=== PATIENT | male | born 1960 | race Caucasian/White ===

== ENCOUNTER 2020-08-04 15:47 | Outpatient (REF) | payer OTHER, SELFPAY ==
--- NOTE | ~2020-08-04 | XR_ITS ---
EXAMINATION: XR CERVICAL SPINE CLINICAL INFORMATION: Radiculopathy. COMPARISON: MR cervical spine 04/05/2017. Plain film cervical spine 10/10/2010 TECHNIQUE: 5 views of cervical spine FINDINGS: Orthopedic plate and screw and fusion of the vertebrae at C6-C7. Large anterior bridging osteophyte at C5-C6. Small spurs at the anterior inferior endplates of C2, C3 and C4. Mild multilevel facet joint arthrosis which is most significant on the right side at C2-C3 and on the left at C3-C4. There is slight encroachment into the left and right neural foramina at C3-C4 by a posterior osteophyte from the facet joint. Remainder of neural foramina are open bilaterally. XR/XR cervical spine 5V IMPRESSION: 1. Mild encroachment into the left and right neural foramina at C3-C4 with posterior osteophyte from facet joint. Remainder of the neural foramina are open bilateral. 2. Degenerative spondylosis of cervical spine. 3. Status post fusion C6-C7 with anterior plate and screws.
== END 2020-08-04 15:48 | disposition home or self-care (01) ==
LOC: HO.HMGCX 15:47
PROVIDERS: PCP Internal Medicine; Visit Provider Nurse Practitioner Family
DX: M54.12 Radiculopathy, cervical region (principal)
CPT/HCPCS: 72050

== ENCOUNTER 2021-06-04 17:05 | Inpatient (IN) | payer OTHER, SELFPAY ==
[2021-06-04 17:18] VITALS: BP 124/53; BP 140/90; PULSE 110; PULSE 60; RESP 16; TEMP 36.4; O2SAT 100; O2SAT 99; BMI 31.9
[2021-06-04 17:31] LABS: Glucose, Whole Blood 107 mg/dL (60-115)
[2021-06-04 18:00] VITALS: BP 118/61; PULSE 58; RESP 16; TEMP 36.3; O2SAT 98
--- NOTE | 2021-06-04 18:28 | ED.AMS ---
HPI - Altered Mental Status General Chief Complaint: ETOH/Substance Use Stated Complaint: hypoglycemia ?etoh Time Seen by Provider: 06/04/21 17:32 Source: patient and EMS Mode of arrival: EMS Limitations: no limitations History of Present Illness HPI narrative: 61-year-old male who is brought to emergency department for evaluation of altered mental status. The patient states that he is a diabetic and he took his medications yesterday and today as prescribed. He states that he had no food to eat all day. Apparently his girlfriend found him altered and called an ambulance. When the paramedics arrived his point of care glucose registered as low. He was given 25 g of D50 IV and the patient became responsive. Patient's repeat point of care glucose was 145. The patient states that he has a memory of his girlfriend checking in on him but does not remember what happened prior to coming to the emergency department. He cannot tell me why she did not eat any food today. He denies using any alcohol or drugs today. He states that he last drank alcohol on Sunday ( 1 day prior to evaluation). MD complaint: altered mental status Onset (ago): hour(s) (1) Timing confirmed by: other ( Girlfriend) Severity: severe Consistency of symptoms: constant Context: other ( diabetic did not eat food today but took his medication) Associated symptoms: denies other symptoms Treatments prior to arrival: glucose Related Data Home Medications Medication Instructions Recorded Confirmed atorvastatin 20 mg tablet 20 mg PO DAILY 08/04/20 glyburide 5 mg tablet 10 mg PO BID 08/04/20 insulin glargine 100 unit/mL (3 unit SUBCUT 08/04/20 mL) subcutaneous pen insulin lispro protamine-lispro ml SUBCUT 08/04/20 100 unit/mL (75-25) subcutaneous pen lisinopril 5 mg tablet 5 mg PO DAILY 08/04/20 metformin 850 mg tablet 850 mg PO TID 08/04/20 omeprazole 20 mg capsule,delayed 20 mg PO DAILY 08/04/20 release Allergies Allergy/AdvReac Type Severity Reaction Status Date / Time No Known Allergies Allergy Mild NKA Unverified 07/30/20 16:08 Review of Systems Review of Systems: Yes all other systems are reviewed and are negative PMFSH Past Medical History [facility] Narrative: Past medical history: Diabetes mellitus. Social history: The patient lives with his girlfriend. He denies tobacco use. He states that he does drink alcohol but has not had any alcohol to drink today. His last drink was 1 day prior. He denies drug use. Social History Social History Advance Directives: No Advance Directives Information Provided: No Physical Exam ED Vital Signs: Vital Signs - 24 hr 06/04/21 17:18 06/04/21 18:00 06/04/21 20:37 Temperature 97.6 F 97.4 F Pulse Rate 60 58 77 Respiratory Rate 16 16 18 Blood Pressure 124/53 L 118/61 145/64 H Pulse Oximetry 99 98 98 BMI result Body Mass Index 31.9 Const General: cooperative and no acute distress Orientation/consciousness: oriented to person and oriented to place Limitations: no limitations HENMT Head: Yes normal to inspection, Yes normocephalic and Yes atraumatic Ears: external ears normal General nose exam: Normal external nose present Face and sinus: Yes normal facial exam Mouth: Normal oral and palatal mucosa present Throat: Yes posterior oropharynx normal Eyes General: appearance normal, both eyes and all related structures Pupils: Equal, round and reactive pupils present Neck Neck: Yes normal visual inspection, Yes no lymphadenopathy, Yes trachea midline and Yes supple Chest Chest palpation & inspection: normal inspection of the chest and normal palpation of entire chest wall Resp Effort & Inspection: normal respiratory effort and able to speak in complete sentences Auscultation: clear to auscultation bilaterally Cardio Rate: regular rate Rhythm: regular rhythm Heart sounds: S1 normal heart sound present, S2 normal heart sound present and no murmurs GI Inspection: Yes normal to inspection Palpation (GI): Soft to palpation, nontender and no guarding Auscultation: normal bowel sounds General: Yes no CVA tenderness Back/Spine/Pelvis Back: no CVA tenderness Skin General skin exam: no rashes or lesions noted Neuro General: oriented to person and oriented to place Cranial nerves: Yes CN's II-XII intact bilaterally and Yes Equal, round and reactive pupils present Cognition (Neuro): normal cognition Motor exam (neuro): 5/5 motor strength present throughout Extrem General: Yes normal to inspection Psych Appearance: grossly normal Speech and movement: Normal speech and movement present Affect: normal affect Attitude: cooperative Thought process: Normal thought process present Thought content: Normal thought content present Course Course Course Narrative: 61-year-old male who was found altered by his girlfriend, paramedics found his point of care glucose to be low and he was given 25 g of D50 IV with good response. At the time of evaluation the patient is awake and alert, has no complaints and does not appear to be in distress. The patient told me that he did take his diabetic medications appropriately yesterday and this morning but he did not have any food to eat all day. He cannot tell me why he did not eat. He denies using drugs or alcohol today. Patient's examination was unremarkable. I did order laboratory evaluate and food for the patient. We will follow his point of care glucose while he is here in the emergency Department. The patient was food to eat here in the emergency department. 2050: Laboratory evaluation : Can WBC was normal. Potassium high 5.2, bicarb low 17, anion gap elevated 22. Point of care glucose was 54, repeat was 42 and the patient's 3rd point of care glucose after eating was also low. The patient does take metformin and glimepiride twice a day as well as 2 forms of insulin at night. He believes that he has been compliant with his medications. At this point, the patient has persistent hypoglycemic despite eating food therefore I will start him on D5 NS and discuss admission with the covering hospitalist. MDM - Altered Mental Status Lab Data Result diagrams: 06/04/21 18:40 06/04/21 18:40 Labs: Lab Results 06/04/21 06/04/21 06/04/21 Range/Units 17:27 18:40 18:40 WBC 8.2 (4.8-10.8) X10*3/uL RBC 5.04 (4.60-5.80) X10*6/uL Hgb 13.7 L (14.0-18.0) g/dl Hct 42.0 (42.0-52.0) % MCV 83.3 (80.0-98.0) fL MCH 27.2 (27.0-33.0) pg MCHC 32.6 (31.0-36.0) g/dl RDW 13.7 (11.0-16.0) % Plt Count 245 (160-400) X10*3/uL MPV 10.3 (9.4-12.4) fL Immature Gran % (Auto) 0.7 H (0.0-0.4) % Neut % (Auto) 81.9 H (45-73) % Lymph % (Auto) 12.9 L (20-40) % [place] % (Auto) 4.3 (2-11) % Eos % (Auto) 0.1 (0-4) % Baso % (Auto) 0.1 (0-2) % Lymph # (Auto) 1.1 L (1.2-4.9) X10*3/uL [place] # (Auto) 0.4 (0.1-1.2) X10*3/uL Eos # (Auto) 0.0 (0.0-0.4) X10*3/uL Baso # (Auto) 0.0 (0.0-0.2) X10*3/uL Abs Immat Gran (auto) 0.06 H (0.00-0.03) X10*3/uL Absolute Neuts (auto) 6.7 (2.0-8.3) x10*3/uL Absolute Nucleated RBC 0.000 (0.0-0.012) X10*3/uL Nucleated RBC % (auto) 0.0 (0.0-0.2) /100WBC Sodium 141 (135-145) mmol/L Potassium 5.2 H (3.3-5.1) mmol/L Chloride 107 (96-108) mmol/L Carbon Dioxide 17 L (22-29) mmol/L Anion Gap 22 H (12-20) BUN 9 (9-16) mg/dL Creatinine 1.09 (0.5-1.4) mg/dL Estim Creat Clear Calc 81.6 Estimated GFR > 60 POC Glucose 107 (60-115) mg/dL Random Glucose 54 L* (60-115) mg/dL Calcium 9.3 (8.4-10.2) mg/dL Total Bilirubin 0.6 (0.0-1.0) mg/dL AST 37 (5-37) U/L ALT 36 (0-40) U/L Alkaline Phosphatase 61 (39-117) U/L Total Protein 7.5 (6.5-8.0) g/dL Albumin 4.6 (3.5-5.0) g/dL Ethyl Alcohol mg/dL 06/04/21 06/04/21 Range/Units 18:40 19:14 WBC (4.8-10.8) X10*3/uL RBC (4.60-5.80) X10*6/uL Hgb (14.0-18.0) g/dl Hct (42.0-52.0) % MCV (80.0-98.0) fL MCH (27.0-33.0) pg MCHC (31.0-36.0) g/dl RDW (11.0-16.0) % Plt Count (160-400) X10*3/uL MPV (9.4-12.4) fL Immature Gran % (Auto) (0.0-0.4) % Neut % (Auto) (45-73) % Lymph % (Auto) (20-40) % [place] % (Auto) (2-11) % Eos % (Auto) (0-4) % Baso % (Auto) (0-2) % Lymph # (Auto) (1.2-4.9) X10*3/uL [place] # (Auto) (0.1-1.2) X10*3/uL Eos # (Auto) (0.0-0.4) X10*3/uL Baso # (Auto) (0.0-0.2) X10*3/uL Abs Immat Gran (auto) (0.00-0.03) X10*3/uL Absolute Neuts (auto) (2.0-8.3) x10*3/uL Absolute Nucleated RBC (0.0-0.012) X10*3/uL Nucleated RBC % (auto) (0.0-0.2) /100WBC Sodium (135-145) mmol/L Potassium (3.3-5.1) mmol/L Chloride (96-108) mmol/L Carbon Dioxide (22-29) mmol/L Anion Gap (12-20) BUN (9-16) mg/dL Creatinine (0.5-1.4) mg/dL Estim Creat Clear Calc Estimated GFR POC Glucose 42 L* (60-115) mg/dL Random Glucose (60-115) mg/dL Calcium (8.4-10.2) mg/dL Total Bilirubin (0.0-1.0) mg/dL AST (5-37) U/L ALT (0-40) U/L Alkaline Phosphatase (39-117) U/L Total Protein (6.5-8.0) g/dL Albumin (3.5-5.0) g/dL Ethyl Alcohol < 10 mg/dL Discharge Plan Discharge Patient Disposition: Admitted As Inpatient Prescriptions: No Action dexamethasone 4 mg tablet 4 mg PO .COMPLEX Qty: 18 0RF Rx Instructions: 4 mg PO; 1 p.o. t.i.d. x3 days, 1 p.o. b.i.d. x3 days, 1 p.o. daily x3 days Lantus Solostar U-100 Insulin 100 unit/mL (3 mL) insulin pen subcut 0RF (DME) FreeStyle Lite Strips Strip See Rx Instructions strip Not Applicable TID Qty: 10 0RF Rx Instructions: As directed insulin lispro protamin-lispro 100 unit/mL (75-25) insulin pen subcut 0RF lisinopril 5 mg tablet 5 mg PO DAILY 0RF omeprazole 20 mg capsule,delayed release(DR/EC) 20 mg PO DAILY 0RF metformin 850 mg tablet 850 mg PO TID 0RF glyburide 5 mg tablet 10 mg PO BID 0RF atorvastatin 20 mg tablet 20 mg PO DAILY 0RF (DME) lancets 28 gauge misc See Rx Instructions ea topical TID Qty: 100 0RF Rx Instructions: As directed cyclobenzaprine 5 mg tablet 5 - 10 mg PO TID PRN (Reason: muscle spasm) Qty: 20 0RF
[2021-06-04 18:46] LABS: MANUAL DIFF FLAG NO
[2021-06-04 18:48] LABS: Basophils Percent Auto 0.1 % (0-2); Eosinophils Percent Auto 0.1 % (0-4); Hemoglobin 13.7 g/dl (14.0-18.0); Imm Gran Abs Auto 0.06 X10*3/uL (0.00-0.03); Imm Gran Pct Auto 0.7 % (0.0-0.4); Lymphocytes Absolute Auto 1.1 X10*3/uL (1.2-4.9); Lymphocytes Percent Auto 12.9 % (20-40); Mean Corpuscular HGB Conc 32.6 g/dl (31.0-36.0); Mean Corpuscular Hemoglobin 27.2 pg (27.0-33.0); Mean Corpuscular Volume 83.3 fL (80.0-98.0); Mean Platelet Volume 10.3 fL (9.4-12.4); Monocytes Absolute Auto 0.4 X10*3/uL (0.1-1.2); Monocytes Percent Auto 4.3 % (2-11); Neutrophils Absolute Auto 6.7 x10*3/uL (2.0-8.3); Neutrophils Percent Auto 81.9 % (45-73); Platelet Count 245 X10*3/uL (160-400); Red Blood Count 5.04 X10*6/uL (4.60-5.80); Red Cell Distribution Width 13.7 % (11.0-16.0); White Blood Count 8.2 X10*3/uL (4.8-10.8)
[2021-06-04 19:02] LABS: Ethanol < 10 mg/dL
[2021-06-04 19:10] LABS: Alanine Aminotransferase 36 U/L (0-40); Albumin Level 4.6 g/dL (3.5-5.0); Alkaline Phosphatase 61 U/L (39-117); Anion Gap 22 (12-20); Aspartate Amino Transferase 37 U/L (5-37); Bilirubin Total 0.6 mg/dL (0.0-1.0); Blood Urea Nitrogen 9 mg/dL (9-16); Calcium 9.3 mg/dL (8.4-10.2); Carbon Dioxide 17 mmol/L (22-29); Chloride 107 mmol/L (96-108); Creatinine Clr Calc Pharmacy 81.6; Estimated Glomerular Filt Rate > 60; Glucose Random 54 mg/dL (60-115); Potassium 5.2 mmol/L (3.3-5.1); Sodium 141 mmol/L (135-145); Total Protein 7.5 g/dL (6.5-8.0)
[2021-06-04 19:18] LABS: Glucose, Whole Blood 42 mg/dL (60-115)
[2021-06-04 20:37] VITALS: BP 145/64; PULSE 77; RESP 18; O2SAT 98
[2021-06-04 20:55] LABS: Glucose, Whole Blood 43 mg/dL (60-115)
[2021-06-04 20:58] LABS: Appearance Urine CLEAR; Color Urine YELLOW; Glucose Urine UA NEG (NEG); Leukocyte Esterase Urine NEG (NEG); Nitrite Urine NEG (NEG); PH 5.5 (5.0-8.0); Specific Gravity - Urine >= 1.030 (1.005-1.025); Urine Blood NEG (NEG); Urine Ketones 15 MG/DL (NEG); Urine Protein TRACE MG/DL (NEG-TRACE)
--- NOTE | 2021-06-04 21:08 | ECG_ITS ---
Test Reason : AMS Blood Pressure : / mmHG Vent. Rate : 094 BPM Atrial Rate : 094 BPM P-R Int : 132 ms QRS Dur : 084 ms QT Int : 354 ms P-R-T Axes : 047 042 058 degrees QTc Int : 442 ms Normal sinus rhythm Normal ECG When compared with ECG of 27-OCT-2008 16:34, No significant change was found Referred By: Dawson Funk Electronically Signed By:Onel Carrasco
--- NOTE | 2021-06-04 21:10 | P.HPHOSP_ITS ---
History of Present Illness Date of Service: 06/04/21 Chief Complaint: Hypoglycemia/unresponsive episode 61-year-old male with a past medical history of hypertension, hyperlipidemia, diabetes, GERD presented to the hospital with a chief complaint of unresponsive episode. Patient reported that yesterday he had couple drinks of alcohol; and does not remember if he ate anything. But to keep his home and dose of insulin Lantus 70 units and lispro 35 units at bedtime; in the morning when the patient's girlfriend tried to wake him up patient was not responding; EMS was called in and who noted that his fingerstick glucose was not recordable/low. Patient was given glucose. Patient has slowly started to wake up. Subsequently brought him to the ER for further evaluation. Patient mentioned that he had a history of DKA; and has been on insulin lispro 35 units at bedtime and Lantus 70 units at bedtime; has been complaint with his home medications including low-grade and metformin. Currently denies any chest pain palpitations lightheadedness or dizziness. Alert and oriented x3. Denies any fever chills cough. Denies any nausea vomiting or diarrhea. Review of all other systems is negative except mentioned above ER course: Per ER patient's fingerstick glucose was 130 on presentation followed by dropped to 43-40 2-54; patient was given IV dextrose followed by started on D5; and admitted for observation. [facility] Pertinent family history: Reviewed Social History Household Members: Significant Other Housing: House Do you presently have visiting nurse or other home services: No Alcohol intake: unknown Patient Tobacco Use Status: Never used Tobacco service: No Current occupational status: retired [employer] Allergies Allergy/AdvReac Type Severity Reaction Status Date / Time No Known Allergies Allergy Mild NKA Verified 06/13/21 19:33 Active Medications: Current Medications Acetaminophen (Acetaminophen 325 Mg Tablet) 650 mg PO Q6H PRN PRN Reason: Pain, Mild (Pain Scale 1-3) Dextrose (Dextrose 50 % 25 Gm/50 Ml Syringe) 25 gm IVPUSH Q15M PRN; Protocol PRN Reason: per Hypoglycemia Standing Ord. Glucose (Glucose Gel 15 Gm Gel..Gram.) 15 gm PO Q15M PRN; Protocol PRN Reason: per Hypoglycemia Standing Ord. Heparin Sodium (Porcine) (Heparin Sodium,Porcine 5,000 Unit/Ml Vial) 5,000 unit SUBCUT Q8H ROSIBEL Dextrose/Sodium Chloride (D5ns) 1,000 mls @ 125 mls/hr IVCONT .Q8H ROSIBEL Dextrose/Sodium Chloride (D51/2ns) 1,000 mls @ 80 mls/hr IVCONT .[id number] [facility] Melatonin (Melatonin 3 Mg Tablet) 6 mg PO BEDTIME PRN PRN Reason: Insomnia Pharmacy Consult (Consult Rx Perform Med Rec) 1 each MISCELLANE ONCE PRN PRN Reason: Consult order Senna (Sennosides 8.6 Mg Tablet) 17.2 mg PO BEDTIME PRN PRN Reason: Constipation Sodium Chloride (0.9 % Sodium Chloride Flush 3 Ml Syringe) 3 ml IVFLUSH QSHIFT [facility] Home Medications Medication Instructions Recorded Confirmed Last Taken Type atorvastatin 20 mg tablet 20 mg PO BEDTIME 08/04/20 06/14/21 06/03/21 History lisinopril 5 mg tablet 5 mg PO DAILY 08/04/20 06/14/21 06/03/21 History metformin 850 mg tablet 850 mg PO TID 08/04/20 06/14/21 06/03/21 History omeprazole 20 mg capsule,delayed 20 mg PO DAILY 08/04/20 06/14/21 06/03/21 History release Physical Exam Vital Signs and Narrative: Vital Signs: Last Vital Signs Temp 97.4 F 06/04/21 18:00 Pulse 77 06/04/21 20:37 Resp 18 06/04/21 20:37 BP 145/64 H 06/04/21 20:37 Pulse Ox 98 06/04/21 20:37 BMI result Body Mass Index 31.9 Gen: Appears be in no acute distress HEENT: NCAT, Moist mucosa. Pulmonary: Vesicular breath sounds, fair air entry CVS: Normal S1-S2 Abdomen: BS+, Soft, Nontender Extremities: Warm well perfused Neuro: Alert and awake. Nonfocal. Oriented x3. Results Labs CBC and Chem 7: 06/05/21 06:01 06/05/21 06:01 Labs: Laboratory Results - last 24 hr 06/04/21 06/04/21 06/04/21 17:27 18:40 18:40 MCV 83.3 MCH 27.2 MCHC 32.6 RDW 13.7 Plt Count 245 MPV 10.3 Immature Gran % (Auto) 0.7 H Neut % (Auto) 81.9 H Lymph % (Auto) 12.9 L [place] % (Auto) 4.3 Eos % (Auto) 0.1 Baso % (Auto) 0.1 Lymph # (Auto) 1.1 L [place] # (Auto) 0.4 Eos # (Auto) 0.0 Baso # (Auto) 0.0 Abs Immat Gran (auto) 0.06 H Absolute Neuts (auto) 6.7 Absolute Nucleated RBC 0.000 Nucleated RBC % (auto) 0.0 Anion Gap 22 H Estim Creat Clear Calc 81.6 Estimated GFR > 60 POC Glucose 107 Random Glucose 54 L* Calcium 9.3 Total Bilirubin 0.6 AST 37 ALT 36 Alkaline Phosphatase 61 Total Protein 7.5 Albumin 4.6 Urine Color Urine Appearance Urine pH Ur Specific [place] Urine Protein Urine Glucose (UA) Urine Ketones Urine Blood Urine Nitrite Ur Leukocyte Esterase Ethyl Alcohol 06/04/21 06/04/21 06/04/21 18:40 19:14 20:27 MCV MCH MCHC RDW Plt Count MPV Immature Gran % (Auto) Neut % (Auto) Lymph % (Auto) [place] % (Auto) Eos % (Auto) Baso % (Auto) Lymph # (Auto) [place] # (Auto) Eos # (Auto) Baso # (Auto) Abs Immat Gran (auto) Absolute Neuts (auto) Absolute Nucleated RBC Nucleated RBC % (auto) Anion Gap Estim Creat Clear Calc Estimated GFR POC Glucose 42 L* 43 L* Random Glucose Calcium Total Bilirubin AST ALT Alkaline Phosphatase Total Protein Albumin Urine Color Urine Appearance Urine pH Ur Specific [place] Urine Protein Urine Glucose (UA) Urine Ketones Urine Blood Urine Nitrite Ur Leukocyte Esterase Ethyl Alcohol < 10 06/04/21 20:51 MCV MCH MCHC RDW Plt Count MPV Immature Gran % (Auto) Neut % (Auto) Lymph % (Auto) [place] % (Auto) Eos % (Auto) Baso % (Auto) Lymph # (Auto) [place] # (Auto) Eos # (Auto) Baso # (Auto) Abs Immat Gran (auto) Absolute Neuts (auto) Absolute Nucleated RBC Nucleated RBC % (auto) Anion Gap Estim Creat Clear Calc Estimated GFR POC Glucose Random Glucose Calcium Total Bilirubin AST ALT Alkaline Phosphatase Total Protein Albumin Urine Color YELLOW Urine Appearance CLEAR Urine pH 5.5 Ur Specific [place] >= 1.030 H Urine Protein TRACE Urine Glucose (UA) NEG Urine Ketones 15 Urine Blood NEG Urine Nitrite NEG Ur Leukocyte Esterase NEG Ethyl Alcohol Assessment and Plan (1) Unresponsive episode: Status: Acute Plan 61-year-old male with a past medical history of hypertension, hyperlipidemia, diabetes, GERD presented to the hospital with a chief complaint of unresponsive episode. Admitted for following Unresponsive episode: In the setting of hypoglycemia. Denies any seizure-like activity. Currently mental status improved. EKG nonischemic. Troponin negative. Hypoglycemia: Likely in the setting of poor oral intake and high dose of insulin regimen-> Lantus 70 units and lispro 35 units taken the night before. Will keep the patient on D5 half NS. Will obtain acute hypoglycemia protocol as well Monitor fingerstick glucose every 2 hours History of diabetes: Hold home insulin regimen including Lantus, lispro, glipizide, metformin. Monitor fingerstick glucose. Once hypoglycemia resolves; can be resumed on insulin sliding scale. Hypertension/hyperlipidemia: Continue home statin/lisinopril. DVT prophylaxis: Subcu heparin Code status: Full code Quality Stroke Does the patient have a stroke diagnosis?: No VTE Prior VTE?: No VTE Risk Level:: Medical - moderate - high VTE Device Contraindication: Treatment Not Indicated VTE Drug Contraindication: N/A - Med Ordered
[2021-06-04 21:11] LABS: Amphetamine Screen Urine Not Detected (Not Detect); Barbiturates, Urine Not Detected (Not Detect); Benzodiazepines Screen Urine Not Detected (Not Detect); Cannabinoid Screen Urine Not Detected (Not Detect); Cocaine Screen Urine POSITIVE (Not Detect); Fentanyl, urine POSITIVE (Not Detect); Opiate Screen Urine Not Detected (Not Detect); Phencyclidine Screen Urine Not Detected (Not Detect)
[2021-06-04] MEDS: Dextrose 5 % and 0.9 % NaCl 1,000 ML 125 ML IVCONT (21:17)
--- NOTE | 2021-06-04 21:20 | PHA.MEDREC ---
Pharmacy Consult ? Medication Reconciliation Pharmacy has completed the medication reconciliation Patient states they take humalog 75/25 once a day with lantus at the same time.
[2021-06-04 21:34] LABS: Troponin-I High Sensitivity < 3.5 ng/L (<3.5-35.0)
[2021-06-04 22:04] VITALS: BP 128/53; PULSE 91; RESP 18; O2SAT 96
[2021-06-04 22:11] LABS: Influenza A Negative (Negative); Influenza B2 Negative (Negative)
[2021-06-04 22:12] LABS: COVID-19 Test Negative (Negative); IDNOW Serial# 16C4AD1C
[2021-06-04 22:24] LABS: Glucose, Whole Blood 130 mg/dL (60-115)
[2021-06-05 00:02] VITALS: BP 119/59; PULSE 94; RESP 19; TEMP 37.8; O2SAT 96
[2021-06-05 00:50] LABS: Glucose, Whole Blood 127 mg/dL (60-115)
[2021-06-05 04:03] VITALS: BP 112/61; PULSE 76; RESP 17; O2SAT 96
[2021-06-05] MEDS: Dextrose 5 % and 0.9 % NaCl 1,000 ML 125 ML IVCONT (05:17)
[2021-06-05 05:39] LABS: Glucose, Whole Blood 83 mg/dL (60-115)
[2021-06-05] MEDS: Dextrose 50 % 25 GM/50 ML SYRINGE IVPUSH (05:59)
[2021-06-05 06:05] LABS: Basophils Percent Auto 0.3 % (0-2); Eosinophils Absolute Auto 0.1 X10*3/uL (0.0-0.4); Eosinophils Percent Auto 1.9 % (0-4); Hematocrit 34.9 % (42.0-52.0); Hemoglobin 11.7 g/dl (14.0-18.0); Imm Gran Abs Auto 0.03 X10*3/uL (0.00-0.03); Imm Gran Pct Auto 0.4 % (0.0-0.4); Lymphocytes Percent Auto 27.3 % (20-40); MANUAL DIFF FLAG NO; Mean Corpuscular HGB Conc 33.5 g/dl (31.0-36.0); Mean Corpuscular Hemoglobin 27.4 pg (27.0-33.0); Mean Corpuscular Volume 81.7 fL (80.0-98.0); Mean Platelet Volume 10.2 fL (9.4-12.4); Monocytes Absolute Auto 0.8 X10*3/uL (0.1-1.2); Monocytes Percent Auto 10.4 % (2-11); Neutrophils Absolute Auto 4.4 x10*3/uL (2.0-8.3); Neutrophils Percent Auto 59.7 % (45-73); Platelet Count 219 X10*3/uL (160-400); Red Blood Count 4.27 X10*6/uL (4.60-5.80); Red Cell Distribution Width 13.7 % (11.0-16.0); White Blood Count 7.3 X10*3/uL (4.8-10.8)
[2021-06-05 06:21] LABS: Anion Gap 14 (12-20); Blood Urea Nitrogen 11 mg/dL (9-16); Calcium 8.3 mg/dL (8.4-10.2); Carbon Dioxide 21 mmol/L (22-29); Chloride 105 mmol/L (96-108); Creatinine Clr Calc Pharmacy 75.4; Estimated Glomerular Filt Rate > 60; Glucose Random 205 mg/dL (60-115); Potassium 3.8 mmol/L (3.3-5.1); Sodium 136 mmol/L (135-145)
--- NOTE | 2021-06-05 06:22 | PC.NURSE ---
Patient's blood sugar labile throughout the shift and kept dropping. The lowest blood sugar was 42. Patient was placed on D5 and 0.9 NS drip at 125 ml/hr. Patient's blood sugar was then above 100. Morning blood sugar was 83 which was a drop from 153 and dropping. Dextrose 25 gm ordered ivp.
[2021-06-05 06:36] LABS: Glucose, Whole Blood 150 mg/dL (60-115)
[2021-06-05 07:26] VITALS: BP 124/70; PULSE 82; RESP 17; TEMP 37.3; O2SAT 97
[2021-06-05] MEDS: Heparin Sodium,Porcine 5,000 UNIT/ML VIAL 5000 UNIT SUBCUT (07:28)
[2021-06-05 07:29] VITALS: BMI 32.0
[2021-06-05 07:51] LABS: Glucose, Whole Blood 127 mg/dL (60-115)
[2021-06-05] MEDS: Omeprazole 20 MG CAPSULE.DR PO (07:55)
[2021-06-05 08:00] VITALS: BP 120/65; PULSE 65; RESP 17; TEMP 36.6; O2SAT 95
[2021-06-05 11:14] LABS: Glucose, Whole Blood 224 mg/dL (60-115)
[2021-06-05 12:00] VITALS: BP 128/65; PULSE 70; RESP 18; TEMP 37.4; O2SAT 96
--- NOTE | 2021-06-05 12:10 | PM.DS ---
DS: Providers Provider Date of Service: 06/05/21 Date of admission: 06/04/21 21:05 Primary care physician: Stephanie nSell MD DS: Summary Hospital Course Hospital Course: from initial hpi: hief Complaint: Hypoglycemia/unresponsive episode 61-year-old male with a past medical history of hypertension, hyperlipidemia, diabetes, GERD presented to the hospital with a chief complaint of unresponsive episode.? Patient reported that yesterday he had couple drinks of alcohol; and does not remember if he ate anything.? But to keep his home and dose of insulin Lantus 70 units and lispro 35 units at bedtime; in the morning when the patient's girlfriend tried to wake him up patient was not responding; EMS was called in and who noted that his fingerstick glucose was not recordable/low.? Patient was given glucose.? Patient has slowly started to wake up.? Subsequently brought him to the ER for further evaluation.? Patient mentioned that he had a history of DKA; and has been on insulin lispro 35 units at bedtime and Lantus 70 units at bedtime; has been complaint with his home medications including low-grade and metformin.? Currently denies any chest pain palpitations lightheadedness or dizziness.? Alert and oriented x3.? Denies any fever chills cough.? Denies any nausea vomiting or diarrhea.? Review of all other systems is negative except mentioned above ER course: Per ER patient's fingerstick glucose was 130 on presentation followed by dropped to 43-40 2-54; patient was given IV dextrose followed by started on D5; and admitted for observation. hospital course: Patient was admitted for metabolic encephalopathy due to diabetes with hypoglycemia, likely due to continuing his regular insulin dose while having poor intake after binge drinking. Patient's glucose improved after IV infusion and has maintained off of the IV infusion. At discharge his insulin will be decreased slightly, is encouraged to monitor his fingersticks and to make sure that he eats well taking his insulin. Time Spent with Patient Time attestation: Total time spent providing and/or coordinating discharge services: Discharge coordination time: Greater than 30 minutes Quality: Safe Use of Opioids Does Pt have an Active Cancer Diagnosis on the Problem List?: No Quality: Stroke Does the patient have a stroke diagnosis?: No Physical Exam Vital Signs: Vital Signs: Last Vital Signs Temp 97.8 F 06/05/21 08:00 Pulse 65 06/05/21 08:00 Resp 17 06/05/21 08:00 BP 120/65 06/05/21 08:00 Pulse Ox 95 06/05/21 08:00 BMI result Body Mass Index 32.0 General: AO X 3, no acute distress Resp: CTA bilateral, no accessory muscles used CVS: S1,S2,RRR GI: soft, non tender, non distended Neuro: motor grossly intact, alert Psych: appropriate affect, appropriate insight DS: Data Data Completed and Pending Labs on day of discharge: Laboratory Results - last 24 hr 06/04/21 06/04/21 06/04/21 17:27 18:40 18:40 WBC 8.2 RBC 5.04 Hgb 13.7 L Hct 42.0 MCV 83.3 MCH 27.2 MCHC 32.6 RDW 13.7 Plt Count 245 MPV 10.3 Immature Gran % (Auto) 0.7 H Neut % (Auto) 81.9 H Lymph % (Auto) 12.9 L [place] % (Auto) 4.3 Eos % (Auto) 0.1 Baso % (Auto) 0.1 Lymph # (Auto) 1.1 L [place] # (Auto) 0.4 Eos # (Auto) 0.0 Baso # (Auto) 0.0 Abs Immat Gran (auto) 0.06 H Absolute Neuts (auto) 6.7 Absolute Nucleated RBC 0.000 Nucleated RBC % (auto) 0.0 Sodium 141 Potassium 5.2 H Chloride 107 Carbon Dioxide 17 L Anion Gap 22 H BUN 9 Creatinine 1.09 Estim Creat Clear Calc 81.6 Estimated GFR > 60 POC Glucose 107 Random Glucose 54 L* Calcium 9.3 Total Bilirubin 0.6 AST 37 ALT 36 Alkaline Phosphatase 61 Troponin I High Sens Total Protein 7.5 Albumin 4.6 Urine Color Urine Appearance Urine pH Ur Specific [place] Urine Protein Urine Glucose (UA) Urine Ketones Urine Blood Urine Nitrite Ur Leukocyte Esterase Urine Opiates Screen Urine Fentanyl Screen Ur Barbiturates Screen Ur Phencyclidine Scrn Ur Amphetamines Screen U Benzodiazepines Scrn Urine Cocaine Screen U Marijuana (THC) Screen Ethyl Alcohol COVID-19 (MERARI) COVID-19 Clin Com Influenza Type A (SAMSON) Influenza Type B (SAMSON) Influenza A & B Note 06/04/21 06/04/21 06/04/21 18:40 18:40 19:14 WBC RBC Hgb Hct MCV MCH MCHC RDW Plt Count MPV Immature Gran % (Auto) Neut % (Auto) Lymph % (Auto) [place] % (Auto) Eos % (Auto) Baso % (Auto) Lymph # (Auto) [place] # (Auto) Eos # (Auto) Baso # (Auto) Abs Immat Gran (auto) Absolute Neuts (auto) Absolute Nucleated RBC Nucleated RBC % (auto) Sodium Potassium Chloride Carbon Dioxide Anion Gap BUN Creatinine Estim Creat Clear Calc Estimated GFR POC Glucose 42 L* Random Glucose Calcium Total Bilirubin AST ALT Alkaline Phosphatase Troponin I High Sens < 3.5 Total Protein Albumin Urine Color Urine Appearance Urine pH Ur Specific [place] Urine Protein Urine Glucose (UA) Urine Ketones Urine Blood Urine Nitrite Ur Leukocyte Esterase Urine Opiates Screen Urine Fentanyl Screen Ur Barbiturates Screen Ur Phencyclidine Scrn Ur Amphetamines Screen U Benzodiazepines Scrn Urine Cocaine Screen U Marijuana (THC) Screen Ethyl Alcohol < 10 COVID-19 (MERARI) COVID-19 Clin Com Influenza Type A (SAMSON) Influenza Type B (SAMSON) Influenza A & B Note 06/04/21 06/04/21 06/04/21 20:27 20:51 20:51 WBC RBC Hgb Hct MCV MCH MCHC RDW Plt Count MPV Immature Gran % (Auto) Neut % (Auto) Lymph % (Auto) [place] % (Auto) Eos % (Auto) Baso % (Auto) Lymph # (Auto) [place] # (Auto) Eos # (Auto) Baso # (Auto) Abs Immat Gran (auto) Absolute Neuts (auto) Absolute Nucleated RBC Nucleated RBC % (auto) Sodium Potassium Chloride Carbon Dioxide Anion Gap BUN Creatinine Estim Creat Clear Calc Estimated GFR POC Glucose 43 L* Random Glucose Calcium Total Bilirubin AST ALT Alkaline Phosphatase Troponin I High Sens Total Protein Albumin Urine Color YELLOW Urine Appearance CLEAR Urine pH 5.5 Ur Specific [place] >= 1.030 H Urine Protein TRACE Urine Glucose (UA) NEG Urine Ketones 15 Urine Blood NEG Urine Nitrite NEG Ur Leukocyte Esterase NEG Urine Opiates Screen Not Detected Urine Fentanyl Screen POSITIVE H Ur Barbiturates Screen Not Detected Ur Phencyclidine Scrn Not Detected Ur Amphetamines Screen Not Detected U Benzodiazepines Scrn Not Detected Urine Cocaine Screen POSITIVE H U Marijuana (THC) Screen Not Detected Ethyl Alcohol COVID-19 (MERARI) COVID-19 Clin Com Influenza Type A (SAMSON) Influenza Type B (SAMSON) Influenza A & B Note 06/04/21 06/04/21 06/04/21 21:39 21:39 22:20 WBC RBC Hgb Hct MCV MCH MCHC RDW Plt Count MPV Immature Gran % (Auto) Neut % (Auto) Lymph % (Auto) [place] % (Auto) Eos % (Auto) Baso % (Auto) Lymph # (Auto) [place] # (Auto) Eos # (Auto) Baso # (Auto) Abs Immat Gran (auto) Absolute Neuts (auto) Absolute Nucleated RBC Nucleated RBC % (auto) Sodium Potassium Chloride Carbon Dioxide Anion Gap BUN Creatinine Estim Creat Clear Calc Estimated GFR POC Glucose 130 H Random Glucose Calcium Total Bilirubin AST ALT Alkaline Phosphatase Troponin I High Sens Total Protein Albumin Urine Color Urine Appearance Urine pH Ur Specific [place] Urine Protein Urine Glucose (UA) Urine Ketones Urine Blood Urine Nitrite Ur Leukocyte Esterase Urine Opiates Screen Urine Fentanyl Screen Ur Barbiturates Screen Ur Phencyclidine Scrn Ur Amphetamines Screen U Benzodiazepines Scrn Urine Cocaine Screen U Marijuana (THC) Screen Ethyl Alcohol COVID-19 (MERARI) Negative COVID-19 Clin Com See Note Influenza Type A (SAMSON) Negative Influenza Type B (SAMSON) Negative Influenza A & B Note See Note 06/05/21 06/05/21 06/05/21 00:45 05:36 06:01 WBC 7.3 RBC 4.27 L Hgb 11.7 L Hct 34.9 L MCV 81.7 MCH 27.4 MCHC 33.5 RDW 13.7 Plt Count 219 MPV 10.2 Immature Gran % (Auto) 0.4 Neut % (Auto) 59.7 Lymph % (Auto) 27.3 [place] % (Auto) 10.4 Eos % (Auto) 1.9 Baso % (Auto) 0.3 Lymph # (Auto) 2.0 [place] # (Auto) 0.8 Eos # (Auto) 0.1 Baso # (Auto) 0.0 Abs Immat Gran (auto) 0.03 Absolute Neuts (auto) 4.4 Absolute Nucleated RBC 0.000 Nucleated RBC % (auto) 0.0 Sodium Potassium Chloride Carbon Dioxide Anion Gap BUN Creatinine Estim Creat Clear Calc Estimated GFR POC Glucose 127 H 83 Random Glucose Calcium Total Bilirubin AST ALT Alkaline Phosphatase Troponin I High Sens Total Protein Albumin Urine Color Urine Appearance Urine pH Ur Specific [place] Urine Protein Urine Glucose (UA) Urine Ketones Urine Blood Urine Nitrite Ur Leukocyte Esterase Urine Opiates Screen Urine Fentanyl Screen Ur Barbiturates Screen Ur Phencyclidine Scrn Ur Amphetamines Screen U Benzodiazepines Scrn Urine Cocaine Screen U Marijuana (THC) Screen Ethyl Alcohol COVID-19 (MERARI) COVID-19 Clin Com Influenza Type A (SAMSON) Influenza Type B (SAMSON) Influenza A & B Note 06/05/21 06/05/21 06/05/21 06:01 06:32 07:28 WBC RBC Hgb Hct MCV MCH MCHC RDW Plt Count MPV Immature Gran % (Auto) Neut % (Auto) Lymph % (Auto) [place] % (Auto) Eos % (Auto) Baso % (Auto) Lymph # (Auto) [place] # (Auto) Eos # (Auto) Baso # (Auto) Abs Immat Gran (auto) Absolute Neuts (auto) Absolute Nucleated RBC Nucleated RBC % (auto) Sodium 136 Potassium 3.8 D Chloride 105 Carbon Dioxide 21 L Anion Gap 14 BUN 11 Creatinine 1.18 Estim Creat Clear Calc 75.4 Estimated GFR > 60 POC Glucose 150 H 127 H Random Glucose 205 H D Calcium 8.3 L D Total Bilirubin AST ALT Alkaline Phosphatase Troponin I High Sens Total Protein Albumin Urine Color Urine Appearance Urine pH Ur Specific [place] Urine Protein Urine Glucose (UA) Urine Ketones Urine Blood Urine Nitrite Ur Leukocyte Esterase Urine Opiates Screen Urine Fentanyl Screen Ur Barbiturates Screen Ur Phencyclidine Scrn Ur Amphetamines Screen U Benzodiazepines Scrn Urine Cocaine Screen U Marijuana (THC) Screen Ethyl Alcohol COVID-19 (MERARI) COVID-19 Clin Com Influenza Type A (SAMSON) Influenza Type B (SAMSON) Influenza A & B Note 06/05/21 11:10 WBC RBC Hgb Hct MCV MCH MCHC RDW Plt Count MPV Immature Gran % (Auto) Neut % (Auto) Lymph % (Auto) [place] % (Auto) Eos % (Auto) Baso % (Auto) Lymph # (Auto) [place] # (Auto) Eos # (Auto) Baso # (Auto) Abs Immat Gran (auto) Absolute Neuts (auto) Absolute Nucleated RBC Nucleated RBC % (auto) Sodium Potassium Chloride Carbon Dioxide Anion Gap BUN Creatinine Estim Creat Clear Calc Estimated GFR POC Glucose 224 H Random Glucose Calcium Total Bilirubin AST ALT Alkaline Phosphatase Troponin I High Sens Total Protein Albumin Urine Color Urine Appearance Urine pH Ur Specific [place] Urine Protein Urine Glucose (UA) Urine Ketones Urine Blood Urine Nitrite Ur Leukocyte Esterase Urine Opiates Screen Urine Fentanyl Screen Ur Barbiturates Screen Ur Phencyclidine Scrn Ur Amphetamines Screen U Benzodiazepines Scrn Urine Cocaine Screen U Marijuana (THC) Screen Ethyl Alcohol COVID-19 (MERARI) COVID-19 Clin Com Influenza Type A (SAMSON) Influenza Type B (SAMSON) Influenza A & B Note Discharge Plan Discharge Patient Disposition: Home, Self-Care Discharge Diagnosis: ams, hypoglycemia Referrals: Stephanie Snell MD [Primary Care Provider] - 1 Week Discharge Medications: Continued lisinopril 5 mg tablet 5 mg PO DAILY 0RF omeprazole 20 mg capsule,delayed release(DR/EC) 20 mg PO DAILY 0RF metformin 850 mg tablet 850 mg PO TID 0RF glyburide 5 mg tablet 10 mg PO BID 0RF atorvastatin 20 mg tablet 20 mg PO BEDTIME 0RF Changed insulin lispro protamin-lispro 100 unit/mL (75-25) insulin pen 25 unit subcut BEDTIME Qty: 0 0RF insulin glargine 100 unit/mL (3 mL) insulin pen 50 unit subcut BEDTIME Qty: 0 0RF Discharge Orders: Discharge Order (Routine); Ordered 06/05/21 Ordered By: Herbie Traylor Diet: diabetic diet Activity on Discharge: As tolerated Stand Alone Forms: Patient Portal Discharge page Care Plan Goals: avoid hypoglycemia Health Concerns: hypoglycemia Plan of Treatment: decrease insulin as noted, monitor finger sticks, make sure to eat when taking insulin Assessment: see above
[2021-06-05 15:26] VITALS: BP 113/60; PULSE 70; RESP 18; TEMP 36.3; O2SAT 96
--- NOTE | 2021-06-05 15:45 | MHC.CM.PN ---
PT DISCHARGED PRIOR TO BEING SEEN BY CM PER EMR, PT LIVES WITH HIS S/O AND IS INDEPENDENT WITH CARE PT USES DIABETIC SUPPLIES AND HAS NO HOME SERVICES PT DOES NOT HAVE A HCP ON FILE PCP: PENG CONTRERAS PT DISCHARGED HOME TODAY WITH NO SERVICES
[2021-06-05 16:34] LABS: Glucose, Whole Blood 274 mg/dL (60-115)
[2021-06-15 18:41] LABS: Chlorpropamide None Detected; Glimepiride None Detected; Glipizide None Detected; Glyburide 180 ng/mL; Nateglinide None Detected; Pioglitazone None Detected; Repaglinide None Detected; Rosiglitazone None Detected; Tolazamide None Detected; Tolbutamide None Detected
== END 2021-06-05 15:35 | disposition home or self-care (01) | DRG 420 ==
LOC: HO.ED 21:04 → HO.EDOVER 22:01 → HO.S3 06-05 05:58
PROVIDERS: Admitting Provider Hospitalist; Emergency Provider Emergency Medicine Emergency Medical Services; PCP Internal Medicine; Visit Provider Internal Medicine
DX: E11.649 Type 2 diabetes mellitus with hypoglycemia without coma (principal); E78.5 Hyperlipidemia, unspecified; K21.9 Gastro-esophageal reflux disease without esophagitis; I10 Essential (primary) hypertension; Z20.822 Contact with and (suspected) exposure to COVID-19; Z79.4 Long term (current) use of insulin; Z79.84 Long term (current) use of oral hypoglycemic drugs; Z79.899 Other long term (current) drug therapy
CPT/HCPCS: 36415; 80048; 80053; 80307; 80337; 81003; 82077; 82947; 84484; 85025; 87502; 87635; 93005; 99218; 99285

== ENCOUNTER 2021-06-13 19:31 | Inpatient (IN) | payer OTHER, SELFPAY ==
--- NOTE | ~2021-06-13 | CT_ITS ---
EXAMINATION: CT CERVICAL SPINE WITHOUT CONTRAST; UNENHANCED CT OF THE HEAD. CLINICAL INFORMATION: Seizure. Hit head. COMPARISON: MRI cervical spine 04/05/2017. TECHNIQUE: Routine unenhanced CT of the head with multiple coronal and sagittal reformatted images; routine unenhanced CT of the cervical spine with multiple coronal and sagittal reformatted images. This CT examination was performed using dose optimization techniques as appropriate, variously including the following: *Automated exposure control *Adjustment of mA and/or kV according to patient size (this includes techniques or standardized protocols for targeted exams where dose is matched to indication/reason for exam; i.e. extremities or head) *Use of iterative reconstruction technique DLP: 1343 mGy-cm FINDINGS: CT head: Mild diffuse commensurate prominence of ventricles and sulci is noted. No intracranial hemorrhage, tumors or acute infarcts are visualized. No focal parenchymal lesions of the brain are identified. The orbits and globes are normal in appearance. No gross extracranial soft tissue inflammatory changes. CT cervical spine: Anterior plate and screw fixation is noted at the level of C6-C7 with interbody osseous bridging. Bridging anterior endplate osteophytosis is present at C5-C6. Mild-moderate multilevel facet hypertrophic changes are present. No fractures or acute appearing subluxations are identified. Mild reversal of the normal cervical lordosis is noted. The visualized lung apices are clear. The thyroid is grossly normal. CT/CT cervical spine wo con IMPRESSION: Unenhanced CT head: *No acute intracranial abnormalities. Unenhanced CT the cervical spine: *No acute abnormalities. *Status post remote C6-C7 anterior discectomy and interbody fusion.
--- NOTE | ~2021-06-13 | CT_ITS ---
EXAMINATION: CT CERVICAL SPINE WITHOUT CONTRAST; UNENHANCED CT OF THE HEAD. CLINICAL INFORMATION: Seizure. Hit head. COMPARISON: MRI cervical spine 04/05/2017. TECHNIQUE: Routine unenhanced CT of the head with multiple coronal and sagittal reformatted images; routine unenhanced CT of the cervical spine with multiple coronal and sagittal reformatted images. This CT examination was performed using dose optimization techniques as appropriate, variously including the following: *Automated exposure control *Adjustment of mA and/or kV according to patient size (this includes techniques or standardized protocols for targeted exams where dose is matched to indication/reason for exam; i.e. extremities or head) *Use of iterative reconstruction technique DLP: 1343 mGy-cm FINDINGS: CT head: Mild diffuse commensurate prominence of ventricles and sulci is noted. No intracranial hemorrhage, tumors or acute infarcts are visualized. No focal parenchymal lesions of the brain are identified. The orbits and globes are normal in appearance. No gross extracranial soft tissue inflammatory changes. CT cervical spine: Anterior plate and screw fixation is noted at the level of C6-C7 with interbody osseous bridging. Bridging anterior endplate osteophytosis is present at C5-C6. Mild-moderate multilevel facet hypertrophic changes are present. No fractures or acute appearing subluxations are identified. Mild reversal of the normal cervical lordosis is noted. The visualized lung apices are clear. The thyroid is grossly normal. CT/CT head/brain wo con IMPRESSION: Unenhanced CT head: *No acute intracranial abnormalities. Unenhanced CT the cervical spine: *No acute abnormalities. *Status post remote C6-C7 anterior discectomy and interbody fusion.
--- NOTE | ~2021-06-13 | XR_ITS ---
EXAMINATION: PORTABLE CHEST 1 VIEW CLINICAL INFORMATION: Pneumonia? . COMPARISON: 10/27/2008. TECHNIQUE: Portable frontal view of the chest was obtained. FINDINGS: The lungs are hypoexpanded with mild basilar atelectasis. No focal infiltrate, effusion, edema, or pneumothorax. Cardiac and mediastinal silhouettes are within normal limits for technique. No acute bony abnormality seen. Cervical spine hardware noted XR/XR chest 1V IMPRESSION: Hypoexpanded with mild basilar markings more likely due to atelectasis
[2021-06-13 19:33] VITALS: BP 142/82; PULSE 95; RESP 18; TEMP 36.7; O2SAT 98; BMI 30.4
--- NOTE | 2021-06-13 20:07 | ED.GENADULT ---
HPI - General Adult General Chief complaint: Seizure Stated complaint: seizure Time Seen by Provider: 06/13/21 20:16 Source: patient Mode of arrival: ambulatory Limitations: no limitations History of Present Illness HPI narrative: 61-YEAR-OLD MALE WITH HISTORY OF DIABETES HIGH BLOOD PRESSURE, HIGH CHOLESTEROL, AND gerd BROUGHT TO THE ED BY GIRLFRIEND FOR SEIZURES. PER GIRLFRIEND AND PATIENT, PATIENT'S GLUCOSE HAS BEEN LOW. SHE STATES PATIENT'S LOWEST GLUCOSE AT HOME TODAY WAS 50. SHE STATES THROUGHOUT THE DAY PATIENT HAVE GENERALIZED SEIZURES AND THEN WILL HAVE SEIZURE WHERE HIS BODY IS MOVING BUT PATIENT IS ALERT AND AWARE. FOR STATES THERE WAS A CHANGE IN PATIENT'S DIABETES MEDICATION WAS UNAWARE OF WHICH one. SHE ALSO STATES PATIENT FELL 3 TIMES WHICH LED TO HIM HITTING HIS HEAD AND NECK. Related Data Home Medications Medication Instructions Recorded Confirmed atorvastatin 20 mg tablet 20 mg PO BEDTIME 08/04/20 06/04/21 glyburide 5 mg tablet 10 mg PO BID 08/04/20 06/04/21 lisinopril 5 mg tablet 5 mg PO DAILY 08/04/20 06/04/21 metformin 850 mg tablet 850 mg PO TID 08/04/20 06/04/21 omeprazole 20 mg capsule,delayed 20 mg PO DAILY 08/04/20 06/04/21 release Previous Rx's Medication Instructions Recorded insulin glargine 100 unit/mL (3 50 unit (0.5 mL) SUBCUT BEDTIME #0 06/05/21 mL) subcutaneous pen ml insulin lispro protamine-lispro 25 unit (0.25 mL) SUBCUT BEDTIME 06/05/21 100 unit/mL (75-25) subcutaneous #0 ml pen Allergies Allergy/AdvReac Type Severity Reaction Status Date / Time No Known Allergies Allergy Mild NKA Verified 06/13/21 19:33 Review of Systems Review of Systems: SEIZURE, HYPOGLYCEMIA Yes all other systems are reviewed and are negative [facility] Social History Social History Household Members: Significant Other Housing: House Do you presently have visiting nurse or other home services: No Alcohol intake: current Alcohol intake frequency: 0-2 drinks per day Patient Tobacco Use Status: Never used Tobacco Advance Directives: No Advance Directives Information Provided: No Current occupational status: retired Physical Exam ED Vital Signs: Vital Signs - 24 hr 06/13/21 19:33 06/13/21 21:35 Temperature 98.1 F 98.6 F Pulse Rate 95 80 Respiratory Rate 18 20 Blood Pressure 142/82 H 118/86 Pulse Oximetry 98 96 BMI result Body Mass Index 30.4 Const General: cooperative, healthy appearing, comfortable, no acute distress, well developed, alert, awake and Physically active Orientation/consciousness: oriented to person, oriented to place, oriented to time and patient oriented x3 HENMN Head: Yes normal to inspection, Yes No palpable skull fracture present, Yes normocephalic, Yes atraumatic and No abrasion Head images: 1. SLIGHT ECCHYMOSIS/ABRASION. Eyes General: appearance normal, both eyes and all related structures Neck Neck: Yes normal visual inspection, Yes full ROM, Yes no lymphadenopathy, Yes no meningeal signs, Yes trachea midline, Yes supple, No anterior neck swelling and No tender Chest Chest palpation & inspection: normal inspection of the chest and normal palpation of entire chest wall Resp Effort & Inspection: normal respiratory effort and able to speak in complete sentences Auscultation: clear to auscultation bilaterally Cardio Jugular venous distension: no JVD Heart sounds: S1 normal heart sound present and S2 normal heart sound present GI Inspection: Yes normal to inspection, No abdominal wall ecchymosis and Yes visible pulsation Palpation (GI): Soft to palpation, not firm, nontender, no guarding and not rigid General: No CVA tenderness and Yes no CVA tenderness Back/Spine/Pelvis Back: no CVA tenderness, No CVA tenderness and No back tenderness Skin General skin exam: no rashes or lesions noted and elasticity normal Neuro Other: ALERT ORIENTED X3. NEGATIVE FACIAL DROOP. NEGATIVE SLURRED SPEECH. ALL EXTREMITIES EQUAL STRENGTH 5+. [id number] RAPID HAND MOVEMENT INTACT. NEGATIVE ROMBERG. patient had 3 partial seizures. General: oriented to person, oriented to place, oriented to time, patient oriented x3, gait normal, tone normal, moves all extremities, no meningeal signs and CN's II-XI intact bilaterally Extrem Other: DURING CONVERSATION PATIENT WAS HAVING PARTIAL SEIZURES ON THE WITH UPPER EXTREMITIES, BUT WAS AWAKE THE WHOLE TIME. Psych Appearance: grossly normal, well kempt and not disheveled Course Course Course Narrative: FINGERSTICK GLUCOSE 65 at bedside. D5 LACTATED RINGER ORDER. PATIENT GIVEN ORANGE JUICE, CRACKER, AND SANDWICHES. THE DAY OF FLUCTUATING HYPERGLYCEMIA: THE PATIENT HAS PARTIAL SEIZURES. WILL CHECK FOR INFECTION OF CHEST AND URINE AND ALSO TO HEAD AND NECK TO MAKE SURE THERE IS NO BLEEDING ON NECK FRACTURE. Reevaluation(s) Reevaluation #1: Patient had multiple episodes of partial seizures so Ativan was given. lactic acid positive due to mutliple seizure not infection. Will switch from D5 lactate to D5 NS. Magnesium given for low magnesium. Head CT, chest x-ray, cervical spine came back normal. Time: 23:40 Reevaluation #2: patient to be admitted to the hospital for multiple rounds of seizure due to hypoglycemia and hypo magnesemia. Patient will need to get his diabetes medication adjusted. Patient no longer having partial seizures after being given Ativan. Patient agreeable to be admitted. Vital signs stable. Time: 00:16 Medical Decision Making MDM Narrative Medical decision making narrative: Partial seizures. Hypoglycemia Lab Data Result diagrams: 06/13/21 20:11 06/13/21 20:28 Labs: Lab Results 06/13/21 06/13/21 06/13/21 Range/Units 19:59 20:10 20:11 WBC 7.2 (4.8-10.8) X10*3/uL RBC 4.59 L (4.60-5.80) X10*6/uL Hgb 12.6 L (14.0-18.0) g/dl Hct 37.4 L (42.0-52.0) % MCV 81.5 (80.0-98.0) fL MCH 27.5 (27.0-33.0) pg MCHC 33.7 (31.0-36.0) g/dl RDW 13.5 (11.0-16.0) % Plt Count 246 (160-400) X10*3/uL MPV 10.5 (9.4-12.4) fL Immature Gran % (Auto) 0.4 (0.0-0.4) % Neut % (Auto) 53.6 (45-73) % Lymph % (Auto) 33.6 (20-40) % Howard % (Auto) 9.6 (2-11) % Eos % (Auto) 2.4 (0-4) % Baso % (Auto) 0.4 (0-2) % Lymph # (Auto) 2.4 (1.2-4.9) X10*3/uL Howard # (Auto) 0.7 (0.1-1.2) X10*3/uL Eos # (Auto) 0.2 (0.0-0.4) X10*3/uL Baso # (Auto) 0.0 (0.0-0.2) X10*3/uL Abs Immat Gran (auto) 0.03 (0.00-0.03) X10*3/uL Absolute Neuts (auto) 3.8 (2.0-8.3) x10*3/uL Absolute Nucleated RBC 0.000 (0.0-0.012) X10*3/uL Nucleated RBC % (auto) 0.0 (0.0-0.2) /100WBC Sodium (135-145) mmol/L Potassium (3.3-5.1) mmol/L Chloride (96-108) mmol/L Carbon Dioxide (22-29) mmol/L Anion Gap (12-20) BUN (9-16) mg/dL Creatinine (0.5-1.4) mg/dL Estim Creat Clear Calc Estimated GFR POC Glucose 65 (60-115) mg/dL Random Glucose (60-115) mg/dL Lactic Acid (0.5-2.0) mmol/L Lactic Acid F/U @ 2Hr (0.5-2.0) mmol/L Calcium (8.4-10.2) mg/dL Magnesium (1.6-2.6) mg/dL Total Bilirubin (0.0-1.0) mg/dL AST (5-37) U/L ALT (0-40) U/L Alkaline Phosphatase (39-117) U/L Total Protein (6.5-8.0) g/dL Albumin (3.5-5.0) g/dL Urine Color Urine Appearance Urine pH (5.0-8.0) Ur Specific [place] (1.005-1.025) Urine Protein (NEG-TRACE) MG/DL Urine Glucose (UA) (NEG) MG/DL Urine Ketones (NEG) MG/DL Urine Blood (NEG) Urine Nitrite (NEG) Ur Leukocyte Esterase (NEG) Urine RBC (0) /HPF Urine WBC (0-4) /HPF Ur Squamous Epith Cells /LPF Urine Bacteria /LPF Urine Opiates Screen (Not Detect) Urine Fentanyl Screen (Not Detect) Ur Barbiturates Screen (Not Detect) Ur Phencyclidine Scrn (Not Detect) Ur Amphetamines Screen (Not Detect) U Benzodiazepines Scrn (Not Detect) Urine Cocaine Screen (Not Detect) U Marijuana (THC) Screen (Not Detect) Influenza Type A (PCR) NEGATIVE (Negative) Influenza Type B (PCR) NEGATIVE (Negative) RSV RNA Qual (PCR) NEGATIVE (Negative) SARS-CoV-2 RNA (RT-PCR) NEGATIVE (Negative) 06/13/21 06/13/21 06/13/21 Range/Units 20:11 20:28 21:42 WBC (4.8-10.8) X10*3/uL RBC (4.60-5.80) X10*6/uL Hgb (14.0-18.0) g/dl Hct (42.0-52.0) % MCV (80.0-98.0) fL MCH (27.0-33.0) pg MCHC (31.0-36.0) g/dl RDW (11.0-16.0) % Plt Count (160-400) X10*3/uL MPV (9.4-12.4) fL Immature Gran % (Auto) (0.0-0.4) % Neut % (Auto) (45-73) % Lymph % (Auto) (20-40) % Howard % (Auto) (2-11) % Eos % (Auto) (0-4) % Baso % (Auto) (0-2) % Lymph # (Auto) (1.2-4.9) X10*3/uL [place] # (Auto) (0.1-1.2) X10*3/uL Eos # (Auto) (0.0-0.4) X10*3/uL Baso # (Auto) (0.0-0.2) X10*3/uL Abs Immat Gran (auto) (0.00-0.03) X10*3/uL Absolute Neuts (auto) (2.0-8.3) x10*3/uL Absolute Nucleated RBC (0.0-0.012) X10*3/uL Nucleated RBC % (auto) (0.0-0.2) /100WBC Sodium 136 (135-145) mmol/L Potassium 4.1 (3.3-5.1) mmol/L Chloride 105 (96-108) mmol/L Carbon Dioxide 24 (22-29) mmol/L Anion Gap 11 L (12-20) BUN 13 (9-16) mg/dL Creatinine 1.10 (0.5-1.4) mg/dL Estim Creat Clear Calc 79.0 Estimated GFR > 60 POC Glucose (60-115) mg/dL Random Glucose 77 D (60-115) mg/dL Lactic Acid 2.9 H* (0.5-2.0) mmol/L Lactic Acid F/U @ 2Hr (0.5-2.0) mmol/L Calcium 9.0 D (8.4-10.2) mg/dL Magnesium 1.3 L* (1.6-2.6) mg/dL Total Bilirubin 0.7 (0.0-1.0) mg/dL AST 22 D (5-37) U/L ALT 22 (0-40) U/L Alkaline Phosphatase 61 (39-117) U/L Total Protein 6.6 (6.5-8.0) g/dL Albumin 4.1 (3.5-5.0) g/dL Urine Color YELLOW Urine Appearance CLEAR Urine pH 6.0 (5.0-8.0) Ur Specific [place] 1.025 (1.005-1.025) Urine Protein NEG (NEG-TRACE) MG/DL Urine Glucose (UA) >=1000 H (NEG) MG/DL Urine Ketones NEG (NEG) MG/DL Urine Blood NEG (NEG) Urine Nitrite NEG (NEG) Ur Leukocyte Esterase NEG (NEG) Urine RBC 0-2 (0) /HPF Urine WBC 0-2 (0-4) /HPF Ur Squamous Epith Cells NONE /LPF Urine Bacteria NONE /LPF Urine Opiates Screen (Not Detect) Urine Fentanyl Screen (Not Detect) Ur Barbiturates Screen (Not Detect) Ur Phencyclidine Scrn (Not Detect) Ur Amphetamines Screen (Not Detect) U Benzodiazepines Scrn (Not Detect) Urine Cocaine Screen (Not Detect) U Marijuana (THC) Screen (Not Detect) Influenza Type A (PCR) (Negative) Influenza Type B (PCR) (Negative) RSV RNA Qual (PCR) (Negative) SARS-CoV-2 RNA (RT-PCR) (Negative) 06/13/21 06/13/21 06/13/21 Range/Units 21:42 22:51 23:09 WBC (4.8-10.8) X10*3/uL RBC (4.60-5.80) X10*6/uL Hgb (14.0-18.0) g/dl Hct (42.0-52.0) % MCV (80.0-98.0) fL MCH (27.0-33.0) pg MCHC (31.0-36.0) g/dl RDW (11.0-16.0) % Plt Count (160-400) X10*3/uL MPV (9.4-12.4) fL Immature Gran % (Auto) (0.0-0.4) % Neut % (Auto) (45-73) % Lymph % (Auto) (20-40) % Howard % (Auto) (2-11) % Eos % (Auto) (0-4) % Baso % (Auto) (0-2) % Lymph # (Auto) (1.2-4.9) X10*3/uL [place] # (Auto) (0.1-1.2) X10*3/uL Eos # (Auto) (0.0-0.4) X10*3/uL Baso # (Auto) (0.0-0.2) X10*3/uL Abs Immat Gran (auto) (0.00-0.03) X10*3/uL Absolute Neuts (auto) (2.0-8.3) x10*3/uL Absolute Nucleated RBC (0.0-0.012) X10*3/uL Nucleated RBC % (auto) (0.0-0.2) /100WBC Sodium (135-145) mmol/L Potassium (3.3-5.1) mmol/L Chloride (96-108) mmol/L Carbon Dioxide (22-29) mmol/L Anion Gap (12-20) BUN (9-16) mg/dL Creatinine (0.5-1.4) mg/dL Estim Creat Clear Calc Estimated GFR POC Glucose 220 H (60-115) mg/dL Random Glucose (60-115) mg/dL Lactic Acid (0.5-2.0) mmol/L Lactic Acid F/U @ 2Hr 3.8 H* (0.5-2.0) mmol/L Calcium (8.4-10.2) mg/dL Magnesium (1.6-2.6) mg/dL Total Bilirubin (0.0-1.0) mg/dL AST (5-37) U/L ALT (0-40) U/L Alkaline Phosphatase (39-117) U/L Total Protein (6.5-8.0) g/dL Albumin (3.5-5.0) g/dL Urine Color Urine Appearance Urine pH (5.0-8.0) Ur Specific [place] (1.005-1.025) Urine Protein (NEG-TRACE) MG/DL Urine Glucose (UA) (NEG) MG/DL Urine Ketones (NEG) MG/DL Urine Blood (NEG) Urine Nitrite (NEG) Ur Leukocyte Esterase (NEG) Urine RBC (0) /HPF Urine WBC (0-4) /HPF Ur Squamous Epith Cells /LPF Urine Bacteria /LPF Urine Opiates Screen Not Detected (Not Detect) Urine Fentanyl Screen Not Detected (Not Detect) Ur Barbiturates Screen Not Detected (Not Detect) Ur Phencyclidine Scrn Not Detected (Not Detect) Ur Amphetamines Screen Not Detected (Not Detect) U Benzodiazepines Scrn Not Detected (Not Detect) Urine Cocaine Screen Not Detected (Not Detect) U Marijuana (THC) Screen Not Detected (Not Detect) Influenza Type A (PCR) (Negative) Influenza Type B (PCR) (Negative) RSV RNA Qual (PCR) (Negative) SARS-CoV-2 RNA (RT-PCR) (Negative) Discharge Plan Discharge Clinical Impression: Seizure, Hypoglycemia Patient Disposition: Admitted As Inpatient
[2021-06-13 20:19] LABS: MANUAL DIFF FLAG NO
[2021-06-13 20:20] LABS: Basophils Percent Auto 0.4 % (0-2); Eosinophils Absolute Auto 0.2 X10*3/uL (0.0-0.4); Eosinophils Percent Auto 2.4 % (0-4); Hematocrit 37.4 % (42.0-52.0); Hemoglobin 12.6 g/dl (14.0-18.0); Imm Gran Abs Auto 0.03 X10*3/uL (0.00-0.03); Imm Gran Pct Auto 0.4 % (0.0-0.4); Lymphocytes Absolute Auto 2.4 X10*3/uL (1.2-4.9); Lymphocytes Percent Auto 33.6 % (20-40); Mean Corpuscular HGB Conc 33.7 g/dl (31.0-36.0); Mean Corpuscular Hemoglobin 27.5 pg (27.0-33.0); Mean Corpuscular Volume 81.5 fL (80.0-98.0); Mean Platelet Volume 10.5 fL (9.4-12.4); Monocytes Absolute Auto 0.7 X10*3/uL (0.1-1.2); Monocytes Percent Auto 9.6 % (2-11); Neutrophils Absolute Auto 3.8 x10*3/uL (2.0-8.3); Neutrophils Percent Auto 53.6 % (45-73); Platelet Count 246 X10*3/uL (160-400); Red Blood Count 4.59 X10*6/uL (4.60-5.80); Red Cell Distribution Width 13.5 % (11.0-16.0); White Blood Count 7.2 X10*3/uL (4.8-10.8)
[2021-06-13 20:44] LABS: Lactic Acid 2.9 mmol/L (0.5-2.0)
[2021-06-13] MEDS: Dextrose 5 % and Lactated Ring 1,000 ML 125 ML IVCONT (20:51)
[2021-06-13 20:53] LABS: Alanine Aminotransferase 22 U/L (0-40); Albumin Level 4.1 g/dL (3.5-5.0); Alkaline Phosphatase 61 U/L (39-117); Anion Gap 11 (12-20); Aspartate Amino Transferase 22 U/L (5-37); Bilirubin Total 0.7 mg/dL (0.0-1.0); Blood Urea Nitrogen 13 mg/dL (9-16); Carbon Dioxide 24 mmol/L (22-29); Chloride 105 mmol/L (96-108); Estimated Glomerular Filt Rate > 60; Glucose Random 77 mg/dL (60-115); Magnesium 1.3 mg/dL (1.6-2.6); Potassium 4.1 mmol/L (3.3-5.1); Sodium 136 mmol/L (135-145); Total Protein 6.6 g/dL (6.5-8.0)
[2021-06-13 21:04] LABS: Influenza A PCR NEGATIVE (Negative); Influenza B PCR NEGATIVE (Negative); Resp Syncy Virus RNA Qual PCR NEGATIVE (Negative); SARS COV2 PCR INHOUSE NEGATIVE (Negative)
[2021-06-13 21:35] VITALS: BP 118/86; PULSE 80; RESP 20; TEMP 37; O2SAT 96
[2021-06-13 21:48] LABS: Glucose, Whole Blood 65 mg/dL (60-115)
[2021-06-13 21:48] LABS: Appearance Urine CLEAR; Color Urine YELLOW; Glucose Urine UA >=1000 MG/DL (NEG); Leukocyte Esterase Urine NEG (NEG); Nitrite Urine NEG (NEG); Specific Gravity - Urine 1.025 (1.005-1.025); Urine Blood NEG (NEG); Urine Ketones NEG (NEG); Urine Protein NEG (NEG-TRACE)
[2021-06-13] MEDS: Magnesium Sulfate/H2O 2 GM/50 ML PIGGYBACK IV (21:54)
[2021-06-13] MEDS: LORazepam 2 MG/ML VIAL IVPUSH (21:59)
[2021-06-13 22:00] LABS: RBC Urine 0-2 /HPF (0); WBC Urine 0-2 /HPF (0-4)
[2021-06-13 22:02] LABS: Amphetamine Screen Urine Not Detected (Not Detect); Barbiturates, Urine Not Detected (Not Detect); Benzodiazepines Screen Urine Not Detected (Not Detect); Cannabinoid Screen Urine Not Detected (Not Detect); Cocaine Screen Urine Not Detected (Not Detect); Fentanyl, urine Not Detected (Not Detect); Opiate Screen Urine Not Detected (Not Detect); Phencyclidine Screen Urine Not Detected (Not Detect)
[2021-06-13 22:17] LABS: Reflex Lactate? Lactic Acid Added
[2021-06-13 23:06] LABS: ~Lactic Acid-LAB USE ONLY 3.8 mmol/L (0.5-2.0)
[2021-06-13 23:13] LABS: Glucose, Whole Blood 220 mg/dL (60-115)
[2021-06-13 23:53] VITALS: BP 133/71; PULSE 83; RESP 17; TEMP 36.9; O2SAT 98
--- NOTE | 2021-06-14 | EEG_ITS ---
This is a 16-channel EEG with an EKG lead. The patient is awake and drowsy during the tracing. Background EEG rhythm is low amplitude fast during wakefulness. Most of the tracing included EEG while patient was drowsy with appropriate slowing. No sharp wave spikes or paroxysmal tendency noted. Photic stimulation does not produce any significant driving. Hyperventilation is not performed. Cardiac lead does not reveal any significant abnormality. IMPRESSION: No significant abnormality noted on this EEG. MD TERENCE Byers/STEVE / [id number]
--- NOTE | 2021-06-14 00:17 | PM.IMHP ---
History of Present Illness Date of Service: 06/14/21 Chief Complaint: Seizure 61-year-old male with a past medical history of hypertension, hyperlipidemia, diabetes, history of seizure secondary to hypoglycemia; presented to the hospital today with a chief complaint of seizures. Per family patient had couple of episodes of seizures, patient was alert and awake, seizure episode appeared like whole body shaking; also had couple episodes with only upper extremity shaking; denies any loss of consciousness. Denies any tongue biting or urinary accident. When checked fingerstick glucose it was fluctuating from 50 to 300s; patient has been complaint with his home medications. Denies any fever chills cough. Denies any nausea vomiting diarrhea. Denies any headaches numbness tingling or focal weakness. Review of all other systems is negative except mentioned above ER course: Per ER team patient after presentation to the hospital had evidence of episode of partial seizure-who body shaking; did not lose consciousness; lab showed lactic acidosis; CT head showed no acute findings; fingerstick glucose noted to be 65; patient was started on D5 LR; patient also received IV Ativan. Admitted to the hospital for further management PMFSH Pertinent family history: Denies any family history of seizures Social History Household Members: Significant Other Housing: House Do you presently have visiting nurse or other home services: No Alcohol intake: current Alcohol intake frequency: 0-2 drinks per day Patient Tobacco Use Status: Never used Tobacco Advance Directives: No Advance Directives Information Provided: No Current occupational status: retired Meds Allergies Allergy/AdvReac Type Severity Reaction Status Date / Time No Known Allergies Allergy Mild NKA Verified 06/13/21 19:33 Active Medications: Current Medications Dextrose (Dextrose 50 % 25 Gm/50 Ml Syringe) 25 gm IVPUSH Q15M PRN; Protocol PRN Reason: per Hypoglycemia Standing Ord. Glucose (Glucose Gel 15 Gm Gel..Gram.) 15 gm PO Q15M PRN; Protocol PRN Reason: per Hypoglycemia Standing Ord. Dextrose/Sodium Chloride (D5ns) 1,000 mls @ 125 mls/hr IVCONT .Q8H ROSIBEL Dextrose/Sodium Chloride (D51/2ns) 1,000 mls @ 80 mls/hr IVCONT .[id number] COUNTS INCLUDE 234 BEDS AT THE [facility] Insulin Human Lispro (Insulin Lispro 100 Unit/Ml 3 Ml Vial) 0 unit SUBCUT QIDACHS ROSIBEL; Protocol Lorazepam (Lorazepam 2 Mg/Ml Vial) 1 mg IVPUSH Q2H PRN PRN Reason: Seizures Home Medications Medication Instructions Recorded Confirmed Last Taken Type atorvastatin 20 mg tablet 20 mg PO BEDTIME 08/04/20 06/04/21 06/03/21 History glyburide 5 mg tablet 10 mg PO BID 08/04/20 06/04/21 06/03/21 History lisinopril 5 mg tablet 5 mg PO DAILY 08/04/20 06/04/21 06/03/21 History metformin 850 mg tablet 850 mg PO TID 08/04/20 06/04/21 06/03/21 History omeprazole 20 mg capsule,delayed 20 mg PO DAILY 08/04/20 06/04/21 06/03/21 History release Physical Exam Vital Signs and Narrative: Vital Signs: Last Vital Signs Temp 98.4 F 06/13/21 23:53 Pulse 83 06/13/21 23:53 Resp 17 06/13/21 23:53 BP 133/71 06/13/21 23:53 Pulse Ox 98 06/13/21 23:53 BMI result Body Mass Index 30.4 Gen: Appears be in no acute distress HEENT: NCAT, Moist mucosa. Pulmonary: Vesicular breath sounds, fair air entry CVS: Normal S1-S2 Abdomen: BS+, Soft, Nontender Extremities: Warm well perfused Neuro: Alert and awake. Grossly nonfocal Results Labs CBC and Chem 7: 06/13/21 20:11 06/13/21 20:28 Labs: Laboratory Results - last 24 hr 06/13/21 06/13/21 06/13/21 19:59 20:10 20:11 MCV 81.5 MCH 27.5 MCHC 33.7 RDW 13.5 Plt Count 246 MPV 10.5 Immature Gran % (Auto) 0.4 Neut % (Auto) 53.6 Lymph % (Auto) 33.6 [place] % (Auto) 9.6 Eos % (Auto) 2.4 Baso % (Auto) 0.4 Lymph # (Auto) 2.4 [place] # (Auto) 0.7 Eos # (Auto) 0.2 Baso # (Auto) 0.0 Abs Immat Gran (auto) 0.03 Absolute Neuts (auto) 3.8 Absolute Nucleated RBC 0.000 Nucleated RBC % (auto) 0.0 Anion Gap Estim Creat Clear Calc Estimated GFR POC Glucose 65 Random Glucose Lactic Acid Lactic Acid F/U @ 2Hr Calcium Magnesium Total Bilirubin AST ALT Alkaline Phosphatase Total Protein Albumin Urine Color Urine Appearance Urine pH Ur Specific [place] Urine Protein Urine Glucose (UA) Urine Ketones Urine Blood Urine Nitrite Ur Leukocyte Esterase Urine RBC Urine WBC Ur Squamous Epith Cells Urine Bacteria Urine Opiates Screen Urine Fentanyl Screen Ur Barbiturates Screen Ur Phencyclidine Scrn Ur Amphetamines Screen U Benzodiazepines Scrn Urine Cocaine Screen U Marijuana (THC) Screen Influenza Type A (PCR) NEGATIVE Influenza Type B (PCR) NEGATIVE RSV RNA Qual (PCR) NEGATIVE SARS-CoV-2 RNA (RT-PCR) NEGATIVE 06/13/21 06/13/21 06/13/21 20:11 20:28 21:42 MCV MCH MCHC RDW Plt Count MPV Immature Gran % (Auto) Neut % (Auto) Lymph % (Auto) [place] % (Auto) Eos % (Auto) Baso % (Auto) Lymph # (Auto) [place] # (Auto) Eos # (Auto) Baso # (Auto) Abs Immat Gran (auto) Absolute Neuts (auto) Absolute Nucleated RBC Nucleated RBC % (auto) Anion Gap 11 L Estim Creat Clear Calc 79.0 Estimated GFR > 60 POC Glucose Random Glucose 77 D Lactic Acid 2.9 H* Lactic Acid F/U @ 2Hr Calcium 9.0 D Magnesium 1.3 L* Total Bilirubin 0.7 AST 22 D ALT 22 Alkaline Phosphatase 61 Total Protein 6.6 Albumin 4.1 Urine Color YELLOW Urine Appearance CLEAR Urine pH 6.0 Ur Specific [place] 1.025 Urine Protein NEG Urine Glucose (UA) >=1000 H Urine Ketones NEG Urine Blood NEG Urine Nitrite NEG Ur Leukocyte Esterase NEG Urine RBC 0-2 Urine WBC 0-2 Ur Squamous Epith Cells NONE Urine Bacteria NONE Urine Opiates Screen Urine Fentanyl Screen Ur Barbiturates Screen Ur Phencyclidine Scrn Ur Amphetamines Screen U Benzodiazepines Scrn Urine Cocaine Screen U Marijuana (THC) Screen Influenza Type A (PCR) Influenza Type B (PCR) RSV RNA Qual (PCR) SARS-CoV-2 RNA (RT-PCR) 06/13/21 06/13/21 06/13/21 21:42 22:51 23:09 MCV MCH MCHC RDW Plt Count MPV Immature Gran % (Auto) Neut % (Auto) Lymph % (Auto) [place] % (Auto) Eos % (Auto) Baso % (Auto) Lymph # (Auto) [place] # (Auto) Eos # (Auto) Baso # (Auto) Abs Immat Gran (auto) Absolute Neuts (auto) Absolute Nucleated RBC Nucleated RBC % (auto) Anion Gap Estim Creat Clear Calc Estimated GFR POC Glucose 220 H Random Glucose Lactic Acid Lactic Acid F/U @ 2Hr 3.8 H* Calcium Magnesium Total Bilirubin AST ALT Alkaline Phosphatase Total Protein Albumin Urine Color Urine Appearance Urine pH Ur Specific [place] Urine Protein Urine Glucose (UA) Urine Ketones Urine Blood Urine Nitrite Ur Leukocyte Esterase Urine RBC Urine WBC Ur Squamous Epith Cells Urine Bacteria Urine Opiates Screen Not Detected Urine Fentanyl Screen Not Detected Ur Barbiturates Screen Not Detected Ur Phencyclidine Scrn Not Detected Ur Amphetamines Screen Not Detected U Benzodiazepines Scrn Not Detected Urine Cocaine Screen Not Detected U Marijuana (THC) Screen Not Detected Influenza Type A (PCR) Influenza Type B (PCR) RSV RNA Qual (PCR) SARS-CoV-2 RNA (RT-PCR) Imaging Radiologist's Impressions: Impressions Cervical Spine CT 06/13/21 20:52 IMPRESSION: Unenhanced CT head: *No acute intracranial abnormalities. Unenhanced CT the cervical spine: *No acute abnormalities. *Status post remote C6-C7 anterior discectomy and interbody fusion. Head CT 06/13/21 20:52 IMPRESSION: Unenhanced CT head: *No acute intracranial abnormalities. Unenhanced CT the cervical spine: *No acute abnormalities. *Status post remote C6-C7 anterior discectomy and interbody fusion. Chest X-Ray 06/13/21 22:25 IMPRESSION: Hypoexpanded with mild basilar markings more likely due to atelectasis Assessment and Plan (1) Hypoglycemia: Status: Acute (2) Seizure: Status: Acute Plan 61-year-old male with a past medical history of hypertension, hyperlipidemia, diabetes, history of seizure secondary to hypoglycemia; presented to the hospital today with a chief complaint of seizures. Recurrent seizures: Prior history of seizures presumed secondary to hypoglycemia. Currently glucose levels on presentation was noted to be 65. Improving. Seizure precautions Aspiration precautions NPO CT head showed no acute findings Neurology consult for further recommendations EEG U tox negative Lactic acidosis: Improving at the IV fluids Hypoglycemia: Patient on D5 half NS. Monitor fingerstick glucose. Hypomagnesemia: Repleted Diabetes: Patient on Lantus 50 units, lispro 25 units at bedtime, metformin, glimepiride at home. Will hold home insulin regimen. Will give the patient on insulin sliding scale Will defer to the day hospitalist to consider discontinuing glimepiride and adjusting insulin regimen at the time of discharge. Endocrinology follow-up. DVT prophylaxis: Subcu heparin Code status: Full code Quality Stroke Does the patient have a stroke diagnosis?: No VTE Prior VTE?: No VTE Risk Level:: Medical - moderate - high VTE Device Contraindication: Treatment Not Indicated VTE Drug Contraindication: N/A - Med Ordered
[2021-06-14] MEDS: Dextrose 5 % and 0.45 % NaCl 1,000 ML 80 ML IVCONT (00:51)
[2021-06-14 00:54] LABS: Reflex Lactate? 2 Y
[2021-06-14] MEDS: Heparin Sodium,Porcine 5,000 UNIT/ML VIAL 5000 UNIT SUBCUT ×2 (00:54→13:07)
[2021-06-14 01:25] LABS: ~Lactic Acid-LAB USE ONLY 2.9 mmol/L (0.5-2.0)
--- NOTE | 2021-06-14 02:00 | PC.NURSE ---
I assumed nursing care of Marcin at 1900. Since that time he has remained alert, oriented x 3, calm and cooperative. he makes eye contact with RN, speech clear and appropriate. Respirations non-labored, RR WNL, room air O2 sat's 95% o better, no cyanosis, he speaks in full sentences. Pt denies abd. pain/nausea/vomiting. he denies changes in his bowel or bladder pattern. Skin pink/warm/dry. I have not seen the pt ambulate, although he denies any difficulty ambulating. There is a small abrasion to his forehead from a fall that occured today. He denies LOC/head/neck/back pain from the fall. Pt has had frequent focal seizure activity, mostly local to his right upper extremity. He remains alert, although groggy, during these episodes and is aware that they are occuring. IV access/labs obtained. pt has been fully monitored on all bedside monitors since arrival. We will continue to monitor Marcin.
[2021-06-14 02:49] VITALS: BP 103/63; PULSE 65; RESP 20; TEMP 36.2; O2SAT 100
[2021-06-14 06:15] LABS: MANUAL DIFF FLAG NO
[2021-06-14 06:19] LABS: Basophils Percent Auto 0.4 % (0-2); Eosinophils Absolute Auto 0.2 X10*3/uL (0.0-0.4); Eosinophils Percent Auto 3.4 % (0-4); Hematocrit 37.7 % (42.0-52.0); Hemoglobin 12.2 g/dl (14.0-18.0); Imm Gran Abs Auto 0.02 X10*3/uL (0.00-0.03); Imm Gran Pct Auto 0.4 % (0.0-0.4); Lymphocytes Absolute Auto 1.8 X10*3/uL (1.2-4.9); Lymphocytes Percent Auto 36.2 % (20-40); Mean Corpuscular HGB Conc 32.4 g/dl (31.0-36.0); Mean Corpuscular Hemoglobin 26.9 pg (27.0-33.0); Mean Corpuscular Volume 83.2 fL (80.0-98.0); Mean Platelet Volume 10.3 fL (9.4-12.4); Monocytes Absolute Auto 0.5 X10*3/uL (0.1-1.2); Monocytes Percent Auto 9.1 % (2-11); Neutrophils Absolute Auto 2.6 x10*3/uL (2.0-8.3); Neutrophils Percent Auto 50.5 % (45-73); Platelet Count 197 X10*3/uL (160-400); Red Blood Count 4.53 X10*6/uL (4.60-5.80); Red Cell Distribution Width 13.4 % (11.0-16.0); White Blood Count 5.1 X10*3/uL (4.8-10.8)
[2021-06-14 06:34] LABS: Anion Gap 9 (12-20); Blood Urea Nitrogen 9 mg/dL (9-16); Calcium 8.9 mg/dL (8.4-10.2); Carbon Dioxide 27 mmol/L (22-29); Chloride 105 mmol/L (96-108); Creatinine Clr Calc Pharmacy 94.5; Estimated Glomerular Filt Rate > 60; Glucose Random 146 mg/dL (60-115); Potassium 4.2 mmol/L (3.3-5.1); Sodium 137 mmol/L (135-145)
[2021-06-14 07:38] LABS: Glucose, Whole Blood 130 mg/dL (60-115)
[2021-06-14 08:00] VITALS: BP 111/73; PULSE 74; RESP 18; TEMP 36.2; O2SAT 96
--- NOTE | 2021-06-14 08:05 | PHA.MEDREC ---
Pharmacy Consult ? Medication Reconciliation Pharmacy has completed the medication reconciliation. Spoke with the patient who states all of his medications are the same from his discharge on 06/05. He states that while in the hospital last they decreased his insulin doses so that is the only thing that has changed.
[2021-06-14] MEDS: 0.9 % Sodium Chloride Flush 3 ML SYRINGE IVFLUSH (08:18)
[2021-06-14 08:36] LABS: Estimated Average Glucose 157 mg/dL; Hemoglobin A1c % 7.1 %
--- NOTE | 2021-06-14 10:03 | MHC.CM.PN ---
CM met with Patient at bedside. Patient lives in a house with his Girlfriend/Charisse and Charisse's 23 year old Daughter and he required no DME nor services [facility]. Home no services is the goal for dc and CM has initiated and will follow for dc planning. Patient's Sister/Rhea is the HCP and his PCP is Dr. Snell. Patient has received Pfizer/[employer] vax X3.
[2021-06-14 11:35] LABS: Glucose, Whole Blood 109 mg/dL (60-115)
[2021-06-14 12:00] VITALS: BP 115/76; PULSE 68; RESP 20; TEMP 35.7; O2SAT 97
--- NOTE | 2021-06-14 12:23 | PM.EVENT ---
Event Note Date of Service: 06/14/21 Event Note: The patient was seen and evaluated this morning Sitting comfortable in his bed, restless and moving all the time. Noticed to have tremors mainly in his hands that he reports pain going on for the last 2 weeks on and off. Blood glucose above 100, A1c of 7.1 To start diet Pending EEG and neurology consult
--- NOTE | 2021-06-14 13:16 | PM.NEUROCN ---
History of Present Illness Data of Consult Service Date: 06/14/21 Primary Care Provider: Stephanie Snell MD [facility] Reason for consult: Seizure did 61 years old man who was admitted hospital with seizure disorder. When asked about his reason for admission, he said that that was not the reason. But he did complain of right hand shaking now and then specially when he was holding a telephone or trying to do something with his aunt. Previously he had complained of shaking involving both sides the body. Review of Systems Review of Systems: No recent cold or flu-like illness PMFSH Social History Social History Household Members: Significant Other Housing: House Do you presently have visiting nurse or other home services: No Alcohol intake: unknown Patient Tobacco Use Status: Never used Tobacco Use of substances other than those prescribed or required for medical reasons: No Currently Displaying Signs/Symptoms of Drug Intoxication Withdrawal: No Have you been hit, kicked, punched, or otherwise hurt by someone within the past year? If so, by whom?: No Do you feel safe in your current relationship?: Yes Is there a partner from a previous relationship who is making you feel unsafe now?: No Are you made to feel afraid or neglected: No Advance Directives: No Advance Directives Information Provided: No Do you have thoughts of harming others: None Do you have a plan to hurt others: No Plan Recently lost weight without trying: No Poor oral hygiene: No service: No Current occupational status: retired Meds Allergies Allergy/AdvReac Type Severity Reaction Status Date / Time No Known Allergies Allergy Mild NKA Verified 06/13/21 19:33 Active Medications: Current Medications Acetaminophen (Acetaminophen 325 Mg Tablet) 650 mg PO Q6H PRN PRN Reason: Pain, Mild (Pain Scale 1-3) Dextrose (Dextrose 50 % 25 Gm/50 Ml Syringe) 25 gm IVPUSH Q15M PRN; Protocol PRN Reason: per Hypoglycemia Standing Ord. Glucose (Glucose Gel 15 Gm Gel..Gram.) 15 gm PO Q15M PRN; Protocol PRN Reason: per Hypoglycemia Standing Ord. Heparin Sodium (Porcine) (Heparin Sodium,Porcine 5,000 Unit/Ml Vial) 5,000 unit SUBCUT Q12H ROSIBEL Last Admin: 06/14/21 13:07 Dose: 5,000 unit Documented by: Hydroxyzine HCl (Hydroxyzine Hcl 25 Mg Tablet) 25 mg PO Q6H PRN PRN Reason: anxiety/restlessness Insulin Human Lispro (Insulin Lispro 100 Unit/Ml 3 Ml Vial) [facility]; Protocol Last Admin: 06/14/21 11:59 Dose: Not Given Documented by: Lorazepam (Lorazepam 2 Mg/Ml Vial) 1 mg IVPUSH Q2H PRN PRN Reason: Seizures Melatonin (Melatonin 3 Mg Tablet) 6 mg PO BEDTIME PRN PRN Reason: Insomnia Senna (Sennosides 8.6 Mg Tablet) 17.2 mg PO BEDTIME PRN PRN Reason: Constipation Sodium Chloride (0.9 % Sodium Chloride Flush 3 Ml Syringe) 3 ml [facility] [place] Last Admin: 06/14/21 08:18 Dose: 3 ml Documented by: Home Medications Medication Instructions Recorded Confirmed Last Taken Type atorvastatin 20 mg tablet 20 mg PO BEDTIME 08/04/20 06/14/21 06/03/21 History glyburide 5 mg tablet 10 mg PO BID 08/04/20 06/14/21 06/03/21 History lisinopril 5 mg tablet 5 mg PO DAILY 08/04/20 06/14/21 06/03/21 History metformin 850 mg tablet 850 mg PO TID 08/04/20 06/14/21 06/03/21 History omeprazole 20 mg capsule,delayed 20 mg PO DAILY 08/04/20 06/14/21 06/03/21 History release Physical Exam Vital Signs: Vital Signs: Last Vital Signs Temp 96.3 F L 06/14/21 12:00 Pulse 68 06/14/21 12:00 Resp 20 06/14/21 12:00 BP 115/76 06/14/21 12:00 Pulse Ox 97 06/14/21 12:00 BMI result Body Mass Index 30.4 Neuro: Other: Alert and awake with normal spontaneity of speech fluency comprehension and affect. Face was symmetrical. Visual wolfe are full. Extraocular muscles were intact. There was no gaze deviation or nystagmus. Atypical type of right hand tremor was noted which was more noticeable when he was prompted or when I was holding his hand. No rigidity or cogwheeling was noted. Deep tendon reflexes were trace to absent with flexor plantars for Results Labs CBC & Chem 7: 06/14/21 06:10 06/14/21 06:10 Labs: Short CBC 06/13/21 06/14/21 Range/Units 20:11 06:10 WBC 7.2 5.1 (4.8-10.8) X10*3/uL Hgb 12.6 L 12.2 L (14.0-18.0) g/dl Hct 37.4 L 37.7 L (42.0-52.0) % Plt Count 246 197 (160-400) X10*3/uL BMP 06/13/21 06/14/21 20:28 06:10 Sodium 136 137 Potassium 4.1 4.2 Chloride 105 105 Carbon Dioxide 24 27 BUN 13 9 Creatinine 1.10 0.92 Calcium 9.0 D 8.9 Liver Function 06/13/21 Range/Units 20:28 Total Bilirubin 0.7 (0.0-1.0) mg/dL AST 22 D (5-37) U/L ALT 22 (0-40) U/L Alkaline Phosphatase 61 (39-117) U/L Albumin 4.1 (3.5-5.0) g/dL Urine 06/13/21 Range/Units 21:42 Urine Color YELLOW Urine Appearance CLEAR Urine pH 6.0 (5.0-8.0) Ur Specific [place] 1.025 (1.005-1.025) Urine Protein NEG (NEG-TRACE) MG/DL Urine Glucose (UA) >=1000 H (NEG) MG/DL Noncontrast head CT and electroencephalogram were normal. Assessment and Plan (1) Tremor: Status: Acute Atypical right hand tremor with element of psycho Sophia. At this time this tremor and shaking was also not typical of epilepsy. EEG was normal. I suggest reassurance and education and no particular medicine at this time. Procedures Date of Service Date of Service: 06/14/21
[2021-06-14] MEDS: hydrOXYzine HCL 25 MG TABLET PO (14:21)
[2021-06-14 15:12] VITALS: BP 143/66; PULSE 76; RESP 16; TEMP 36.6; O2SAT 95
[2021-06-14 15:44] LABS: Glucose, Whole Blood 149 mg/dL (60-115)
[2021-06-14 18:41] VITALS: BP 130/68; PULSE 71; RESP 16; TEMP 36.7; O2SAT 95
[2021-06-14 20:17] LABS: Glucose, Whole Blood 199 mg/dL (60-115)
[2021-06-14] MEDS: Insulin Lispro 100 UNIT/ML 3 ML VIAL SUBCUT (21:26)
[2021-06-14 23:58] VITALS: BP 133/71; PULSE 60; RESP 16; TEMP 36.3; O2SAT 97
[2021-06-15] MEDS: Heparin Sodium,Porcine 5,000 UNIT/ML VIAL 5000 UNIT SUBCUT ×2 (01:11→11:42)
[2021-06-15 04:00] VITALS: BP 108/67; PULSE 70; RESP 20; TEMP 36.5; O2SAT 99
[2021-06-15 06:45] LABS: Anion Gap 12 (12-20); Blood Urea Nitrogen 11 mg/dL (9-16); Calcium 9.4 mg/dL (8.4-10.2); Carbon Dioxide 27 mmol/L (22-29); Chloride 104 mmol/L (96-108); Creatinine Clr Calc Pharmacy 82.8; Estimated Glomerular Filt Rate > 60; Glucose Random 135 mg/dL (60-115); Potassium 4.7 mmol/L (3.3-5.1); Sodium 138 mmol/L (135-145)
[2021-06-15 07:10] VITALS: BP 100/74; PULSE 63; RESP 18; TEMP 36.4; O2SAT 96
[2021-06-15 07:16] LABS: Glucose, Whole Blood 129 mg/dL (60-115)
[2021-06-15] MEDS: 0.9 % Sodium Chloride Flush 3 ML SYRINGE IVFLUSH (09:56)
[2021-06-15 11:09] VITALS: BP 131/76; PULSE 100; RESP 18; TEMP 36.6; O2SAT 96
[2021-06-15 11:15] LABS: Glucose, Whole Blood 206 mg/dL (60-115)
[2021-06-15] MEDS: Insulin Lispro 100 UNIT/ML 3 ML VIAL SUBCUT (11:43)
--- NOTE | 2021-06-15 11:56 | PM.DS ---
DS: Providers Provider Date of Service: 06/15/21 Date of admission: 06/14/21 00:15 Primary care physician: Stephanie Snell MD Consults: 06/14/21 00:13 Consult to Neurology Routine Consulting Provider: [facility] Reason for consultation: Seizure DS: Diagnosis Discharge Diagnosis (1) Tremor: Status: Acute DS: Summary Hospital Course Hospital Course: initial hpi: Chief Complaint: Seizure 61-year-old male with a past medical history of hypertension, hyperlipidemia, diabetes, history of seizure secondary to hypoglycemia; presented to the hospital today with a chief complaint of seizures.? Per family patient had couple of episodes of seizures, patient was alert and awake, seizure episode appeared like whole body shaking; also had couple episodes with only upper extremity shaking; denies any loss of consciousness.? Denies any tongue biting or urinary accident.? When checked fingerstick glucose it was fluctuating from 50 to 300s; patient has been complaint with his home medications.? Denies any fever chills cough.? Denies any nausea vomiting diarrhea.? Denies any headaches numbness tingling or focal weakness.? Review of all other systems is negative except mentioned above ER course: Per ER team patient after presentation to the hospital had evidence of episode of partial seizure-who body shaking; did not lose consciousness; lab showed lactic acidosis; CT head showed no acute findings; fingerstick glucose noted to be 65; patient was started on D5 LR; patient also received IV Ativan.? Admitted to the hospital for further management hosptial course: Patient was admitted for seizures due to diabetes with hypoglycemia. Patient appears to be on an irregular insulin regiment with both lantus and 75/25 at bedtime. he is also on glyburide and metformin. In-hospital EEG was negative, he had no further hypoglycemic episodes or seizures. He will be discharged home. 75/25 will be moved to morning, glyburide will be discontinued patient will continue metformin and Lantus as previous. He should follow up with endocrinology for further adjustments. He should keep close eye on his sugars. Time Spent with Patient Time attestation: Total time spent providing and/or coordinating discharge services: Discharge coordination time: Greater than 30 minutes Quality: Safe Use of Opioids Does Pt have an Active Cancer Diagnosis on the Problem List?: No Quality: Stroke Does the patient have a stroke diagnosis?: No Physical Exam Vital Signs: Vital Signs: Last Vital Signs Temp 97.8 F 06/15/21 11:09 Pulse 100 06/15/21 11:09 Resp 18 06/15/21 11:09 BP 131/76 06/15/21 11:09 Pulse Ox 96 06/15/21 11:09 BMI result Body Mass Index 30.4 General: AO X 3, no acute distress Resp: CTA bilateral, no accessory muscles used CVS: S1,S2,RRR GI: soft, non tender, non distended Neuro: motor grossly intact, alert Psych: appropriate affect, appropriate insight DS: Data Data Completed and Pending Labs on day of discharge: Laboratory Results - last 24 hr 06/14/21 06/14/21 06/15/21 15:35 20:13 05:53 Sodium 138 Potassium 4.7 Chloride 104 Carbon Dioxide 27 Anion Gap 12 BUN 11 Creatinine 1.05 Estim Creat Clear Calc 82.8 Estimated GFR > 60 POC Glucose 149 H 199 H Random Glucose 135 H Calcium 9.4 06/15/21 06/15/21 07:11 11:11 Sodium Potassium Chloride Carbon Dioxide Anion Gap BUN Creatinine Estim Creat Clear Calc Estimated GFR POC Glucose 129 H 206 H Random Glucose Calcium Preliminary micro results at discharge 06/13/21 20:10 Blood Culture - Preliminary Blood - Venous No growth after 24 hours. 06/13/21 20:10 Blood Culture - Preliminary Blood - Venous No growth after 24 hours. Discharge Plan Discharge Patient Disposition: Home, Self-Care Discharge Diagnosis: hypoglycemia seizure Referrals: Stephanie Snell MD [Primary Care Provider] - 1 Week Discharge Medications: Continued insulin glargine 100 unit/mL (3 mL) insulin pen 50 unit subcut BEDTIME Qty: 0 0RF lisinopril 5 mg tablet 5 mg PO DAILY 0RF omeprazole 20 mg capsule,delayed release(DR/EC) 20 mg PO DAILY 0RF metformin 850 mg tablet 850 mg PO TID 0RF atorvastatin 20 mg tablet 20 mg PO BEDTIME 0RF Changed insulin lispro protamin-lispro 100 unit/mL (75-25) insulin pen 25 unit subcut QAM Qty: 0 0RF Discontinued glyburide 5 mg tablet 10 mg PO BID 0RF Discharge Orders: Discharge Order (Routine); Ordered 06/15/21 Ordered By: Herbie Traylor Diet: diabetic diet Activity on Discharge: As tolerated Stand Alone Forms: Patient Portal Discharge page Care Plan Goals: avoid hypoglycemia Health Concerns: hypoglycemia Plan of Treatment: stop glyburide, move 75/25 to morning, monitor sugars, follow up with museum guide Assessment: see above
--- NOTE | 2021-06-15 11:58 | MHC.CM.PN ---
Patient has been medically cleared for dc to home today, self care.
== END 2021-06-15 13:18 | disposition home or self-care (01) | DRG 420 ==
LOC: HO.ED 20:15 → HO.EDOVER 06-14 00:21 → HO.IMC 06-14 00:50
PROVIDERS: Physician Assistant; Student in an Organized Health Care Education/Training Program; Admitting Provider Hospitalist; Emergency Provider Internal Medicine; PCP Internal Medicine; Visit Provider Internal Medicine
DX: E11.649 Type 2 diabetes mellitus with hypoglycemia without coma (principal); E87.2 Acidosis; R56.9 Unspecified convulsions; E78.5 Hyperlipidemia, unspecified; F44.4 Conversion disorder with motor symptom or deficit; E83.42 Hypomagnesemia; I10 Essential (primary) hypertension; Z20.822 Contact with and (suspected) exposure to COVID-19; Z79.4 Long term (current) use of insulin; Z79.84 Long term (current) use of oral hypoglycemic drugs; Z79.899 Other long term (current) drug therapy
CPT/HCPCS: 0241U; 36415; 70450; 71045; 72125; 80048; 80053; 80307; 81001; 82947; 83036; 83605; 83735; 85025; 87040; 95816; 96365; 96366; 96375; 99285; J2060; J3475

== ENCOUNTER 2023-02-04 16:20 | Inpatient (IN) | payer OTHER, SELFPAY ==
[2023-02-04 16:22] VITALS: BP 139/50; BP 140/90; PULSE 100; PULSE 87; RESP 18; TEMP 35.3; O2SAT 97; BMI 28.5
[2023-02-04 17:09] LABS: MANUAL DIFF FLAG NO
[2023-02-04 17:16] LABS: Basophils Percent Auto 0.2 % (0-2); Eosinophils Percent Auto 0.1 % (0-4); Hematocrit 46.8 % (42.0-52.0); Hemoglobin 15.5 g/dl (14.0-18.0); Imm Gran Abs Auto 0.22 X10*3/uL (0.00-0.03); Imm Gran Pct Auto 1.3 % (0.0-0.4); Lymphocytes Absolute Auto 0.8 X10*3/uL (1.2-4.9); Lymphocytes Percent Auto 4.6 % (20-40); Mean Corpuscular HGB Conc 33.1 g/dl (31.0-36.0); Mean Corpuscular Hemoglobin 30.2 pg (27.0-33.0); Mean Corpuscular Volume 91.2 fL (80.0-98.0); Mean Platelet Volume 10.4 fL (9.4-12.4); Monocytes Absolute Auto 0.7 X10*3/uL (0.1-1.2); Monocytes Percent Auto 4.2 % (2-11); Neutrophils Absolute Auto 15.4 x10*3/uL (2.0-8.3); Neutrophils Percent Auto 89.6 % (45-73); Platelet Count 291 X10*3/uL (160-400); Red Blood Count 5.13 X10*6/uL (4.60-5.80); Red Cell Distribution Width 12.6 % (11.0-16.0); White Blood Count 17.1 X10*3/uL (4.8-10.8)
--- NOTE | 2023-02-04 17:46 | ED.GENADULT ---
HPI - General Adult General Chief complaint: General Medical Stated complaint: found unresponsive, bgl of 20, now 76, pt awake Time Seen by Provider: 02/04/23 17:25 Source: patient Mode of arrival: EMS Limitations: no limitations History of Present Illness HPI narrative: Patient comes to the emergency room by ambulance. Patient was found unresponsive by his girlfriend. When EMS arrived, patient's blood sugar was 20. Patient got 200 mL of D10 prior to arrival. When patient arrived, patient's blood sugar was 76. Patient was awake, alert and oriented x4. Patient states that he has been drinking out all night and does not remember what happened last night, does not know if he accidentally gave himself more insulin than usual. Patient does not know if he even used insulin. Patient feels a bit cold and tired, otherwise patient states that he has no pain, no nausea vomiting or diarrhea. No recent URI or UTI symptoms. Related Data Home Medications Medication Instructions Recorded Confirmed atorvastatin 20 mg tablet 20 mg PO BEDTIME 08/04/20 06/14/21 lisinopril 5 mg tablet 5 mg PO DAILY 08/04/20 06/14/21 metformin 850 mg tablet 850 mg PO TID 08/04/20 06/14/21 omeprazole 20 mg capsule,delayed 20 mg PO DAILY 08/04/20 06/14/21 release Previous Rx's Medication Instructions Recorded insulin glargine 100 unit/mL (3 50 unit (0.5 mL) subcut BEDTIME #0 06/05/21 mL) subcutaneous pen mL glucagon HCl 1 mg solution for 1 mg subcut Q20M PRN hypoglycemia 06/15/21 injection (Glucagon (HCl) #1 ea Emergency Kit) insulin lispro protamine-lispro 25 unit (0.25 mL) subcut QAM #0 mL 06/15/21 100 unit/mL (75-25) subcutaneous pen Allergies Allergy/AdvReac Type Severity Reaction Status Date / Time No Known Allergies Allergy Mild NKA Verified 06/13/21 19:33 Review of Systems Review of Systems: Constitutional : No Weight loss, No Fever, No Chills, No Night Sweats, No Fatigue, No Malaise ENT/Mouth : No Hearing loss, No Ear Pain, No Nasal Congestion, No Sinus Pain, No Hoarseness, No sore throat, No Rhinorrhea, No Swallowing Difficulty Eyes: No Eye Pain, No Swelling, No Redness, No Foreign Body, No Discharge, No Vision Changes Cardiovascular : No Chest Pain, No SOB, No Dyspnea on Exertion, No Orthopnea, No Edema, No Palpitations Respiratory : No Cough, No Sputum, No Wheezing, No Smoke Exposure, No Dyspnea Gastrointestinal : No Nausea, No Vomiting, No Diarrhea, No Constipation, No abdominal Pain, No Hematochezia, No Melena Genitourinary : no irregular bleeding, No Dysuria, No Urinary Frequency, No Hematuria, No Urinary Incontinence, No Urgency, No Flank Pain, No Urinary Flow Changes, No Hesitancy Musculoskeletal : No joint pain, No Myalgias, No Joint Swelling Skin : No Skin Lesions, No rash Neuro : No Weakness, No Numbness, No Paresthesias, No Loss of Consciousness, No Dizziness, No Headache Psych : No Anxiety/Panic, No Depression, No SI/HI/AH/VH, No Social Issues, Heme/Lymph: No Bruising, No Bleeding,No Lymphadenopathy Endocrine : Complaining of low blood sugar, feeling cold PMFSH Past Medical History Medical History Type 2 diabetes mellitus Seizure Social History Social History Household Members: Significant Other Housing: House Do you presently have visiting nurse or other home services: No Alcohol intake: current Alcohol intake frequency: 0-2 drinks per day Patient Tobacco Use Status: Never used Tobacco Smoked in Last 30 Days: No Use of substances other than those prescribed or required for medical reasons: No Advance Directives: No Advance Directives Information Provided: No service: No Current occupational status: retired Physical Exam ED Vital Signs: Vital Signs - 24 hr 02/04/23 16:22 02/04/23 18:24 Temperature 95.6 F L 96.5 F L Pulse Rate 87 80 Respiratory Rate 18 18 Blood Pressure 139/50 L 166/77 H Pulse Oximetry 97 97 Oxygen Delivery Method Room Air Room Air BMI result Body Mass Index 28.5 Const Other: Appearance: Alert. Oriented X3. No acute distress. Eyes: Pupils equal, round and reactive to light. ENT: Pharynx normal. Neck: Normal inspection. Neck supple. No lymph nodes noted. No crepitus CVS: Normal heart rate and rhythm. Pulses normal. Normal S1 and S2 Respiratory: No respiratory distress. Breath sounds normal. No Wheezing. No rales Abdomen: Soft and nontender. No rigidity. No distention. Skin: Skin warm and dry. Normal skin color. Normal skin turgor. Extremities: No lower extremity edema. No Lacerations. No Rash Neuro: Oriented X 3. No motor deficit. No sensory deficit. Moving all extremities. No slurred speech. CN 2 through 12 grossly intact Psych: calm, cooperative, normal affect Course Course Course Narrative: -all of patient's labs pending. -patient encouraged to eat and drink -received phone call from lab, patient's bicarbonate is 9. Patient getting IV fluids, glucose, will recheck. Patient nauseous, given IV Zofran Medications Administered Generic Name Dose Route Start Last Admin Trade Name Freq PRN Reason Stop Dose Admin Dextrose/Sodium Chloride 1,000 mls @ 125 mls/hr 02/04/23 18:00 02/04/23 18:12 D51/2ns IVCONT 125 mls/hr .Q8H ROSIBEL Administration Discontinued Medications Generic Name Dose Route Start Last Admin Trade Name Freq PRN Reason Stop Dose Admin Ondansetron HCl 4 mg 02/04/23 17:52 02/04/23 18:07 Ondansetron Hcl 4 Mg/2 Ml Vial IVPUSH 02/04/23 17:53 4 mg ONCE ONE Administration Medical Decision Making Medical Decision Making [facility] Narrative: -my interpretation of labs, white blood cell count 17.1, likely reactive leukocytosis, H and H stable, gastric white positive, patient's bicarb 9, we will repeat BMP -patient given IV fluids, D5 glucose, Protonix, Zofran, octreotide -patient's vitals stable -discussed the patient with Dr. Mehta from the Medicine team, patient being admitted Differential Diagnosis Differential Diagnoses: The differential diagnosis associated with the presentation includes (Upper GI bleed, esophageal varices, alcohol gastritis, hypoglycemia, accidental insulin overdose) Admission/Observation Consideration of admission/observation: Escalation of care including admission/observation considered Consult Healthcare Provider Management of the patient was discussed with: Hospitalist Lab Data [facility] Lab Attestation statement: I reviewed the patient's lab results. 02/04/23 17:02 02/04/23 17:02 Labs: Lab Results 02/04/23 02/04/23 02/04/23 Range/Units 16:24 17:02 17:07 WBC 17.1 H (4.8-10.8) X10*3/uL RBC 5.13 (4.60-5.80) X10*6/uL Hgb 15.5 D (14.0-18.0) g/dl Hct 46.8 D (42.0-52.0) % MCV 91.2 (80.0-98.0) fL MCH 30.2 (27.0-33.0) pg MCHC 33.1 (31.0-36.0) g/dl RDW 12.6 (11.0-16.0) % Plt Count 291 D (160-400) X10*3/uL MPV 10.4 (9.4-12.4) fL Immature Gran % (Auto) 1.3 H (0.0-0.4) % Neut % (Auto) 89.6 H (45-73) % Lymph % (Auto) 4.6 L (20-40) % [place] % (Auto) 4.2 (2-11) % Eos % (Auto) 0.1 (0-4) % Baso % (Auto) 0.2 (0-2) % Lymph # (Auto) 0.8 L (1.2-4.9) X10*3/uL [place] # (Auto) 0.7 (0.1-1.2) X10*3/uL Eos # (Auto) 0.0 (0.0-0.4) X10*3/uL Baso # (Auto) 0.0 (0.0-0.2) X10*3/uL Abs Immat Gran (auto) 0.22 H (0.00-0.03) X10*3/uL Absolute Neuts (auto) 15.4 H (2.0-8.3) x10*3/uL Absolute Nucleated RBC 0.000 (0.0-0.012) X10*3/uL Nucleated RBC % (auto) 0.0 (0.0-0.2) /100WBC Sodium 142 (135-145) mmol/L Potassium 4.7 (3.3-5.1) mmol/L Chloride 106 (96-108) mmol/L Carbon Dioxide 9 L* D (22-29) mmol/L Anion Gap 32 H (12-20) BUN 9 (9-16) mg/dL Creatinine 0.99 (0.5-1.4) mg/dL Estim Creat Clear Calc 84.2 Estimated GFR > 60 POC Glucose 92 74 (60-115) mg/dL Random Glucose 76 (60-115) mg/dL Calcium 8.6 D (8.4-10.2) mg/dL Total Bilirubin 0.4 (0.0-1.0) mg/dL AST 53 H (5-37) U/L ALT 22 (0-40) U/L Alkaline Phosphatase 59 (39-117) U/L Total Protein 7.9 (6.5-8.0) g/dL Albumin 4.7 (3.5-5.0) g/dL Gastric Occult Blood (NEG) Ethyl Alcohol 59 mg/dL 02/04/23 02/04/23 02/04/23 Range/Units 17:40 18:18 18:35 WBC (4.8-10.8) X10*3/uL RBC (4.60-5.80) X10*6/uL Hgb (14.0-18.0) g/dl Hct (42.0-52.0) % MCV (80.0-98.0) fL MCH (27.0-33.0) pg MCHC (31.0-36.0) g/dl RDW (11.0-16.0) % Plt Count (160-400) X10*3/uL MPV (9.4-12.4) fL Immature Gran % (Auto) (0.0-0.4) % Neut % (Auto) (45-73) % Lymph % (Auto) (20-40) % [place] % (Auto) (2-11) % Eos % (Auto) (0-4) % Baso % (Auto) (0-2) % Lymph # (Auto) (1.2-4.9) X10*3/uL [place] # (Auto) (0.1-1.2) X10*3/uL Eos # (Auto) (0.0-0.4) X10*3/uL Baso # (Auto) (0.0-0.2) X10*3/uL Abs Immat Gran (auto) (0.00-0.03) X10*3/uL Absolute Neuts (auto) (2.0-8.3) x10*3/uL Absolute Nucleated RBC (0.0-0.012) X10*3/uL Nucleated RBC % (auto) (0.0-0.2) /100WBC Sodium (135-145) mmol/L Potassium (3.3-5.1) mmol/L Chloride (96-108) mmol/L Carbon Dioxide (22-29) mmol/L Anion Gap (12-20) BUN (9-16) mg/dL Creatinine (0.5-1.4) mg/dL Estim Creat Clear Calc Estimated GFR POC Glucose 60 59 L* (60-115) mg/dL Random Glucose (60-115) mg/dL Calcium (8.4-10.2) mg/dL Total Bilirubin (0.0-1.0) mg/dL AST (5-37) U/L ALT (0-40) U/L Alkaline Phosphatase (39-117) U/L Total Protein (6.5-8.0) g/dL Albumin (3.5-5.0) g/dL Gastric Occult Blood POSITIVE (NEG) Ethyl Alcohol mg/dL 02/04/23 02/04/23 Range/Units 19:04 19:59 WBC (4.8-10.8) X10*3/uL RBC (4.60-5.80) X10*6/uL Hgb (14.0-18.0) g/dl Hct (42.0-52.0) % MCV (80.0-98.0) fL MCH (27.0-33.0) pg MCHC (31.0-36.0) g/dl RDW (11.0-16.0) % Plt Count (160-400) X10*3/uL MPV (9.4-12.4) fL Immature Gran % (Auto) (0.0-0.4) % Neut % (Auto) (45-73) % Lymph % (Auto) (20-40) % [place] % (Auto) (2-11) % Eos % (Auto) (0-4) % Baso % (Auto) (0-2) % Lymph # (Auto) (1.2-4.9) X10*3/uL [place] # (Auto) (0.1-1.2) X10*3/uL Eos # (Auto) (0.0-0.4) X10*3/uL Baso # (Auto) (0.0-0.2) X10*3/uL Abs Immat Gran (auto) (0.00-0.03) X10*3/uL Absolute Neuts (auto) (2.0-8.3) x10*3/uL Absolute Nucleated RBC (0.0-0.012) X10*3/uL Nucleated RBC % (auto) (0.0-0.2) /100WBC Sodium (135-145) mmol/L Potassium (3.3-5.1) mmol/L Chloride (96-108) mmol/L Carbon Dioxide (22-29) mmol/L Anion Gap (12-20) BUN (9-16) mg/dL Creatinine (0.5-1.4) mg/dL Estim Creat Clear Calc Estimated GFR POC Glucose 79 78 (60-115) mg/dL Random Glucose (60-115) mg/dL Calcium (8.4-10.2) mg/dL Total Bilirubin (0.0-1.0) mg/dL AST (5-37) U/L ALT (0-40) U/L Alkaline Phosphatase (39-117) U/L Total Protein (6.5-8.0) g/dL Albumin (3.5-5.0) g/dL Gastric Occult Blood (NEG) Ethyl Alcohol mg/dL Critical Care Time Critical Care Time Critical Care Time: Yes Total Critical Care Time: 75 Attestation: I have personally provided critical care time. Time includes review of lab data, radiology results, discussion with consultants, and monitoring for potential decompensation. Intervention performed as documented. Discharge Plan Discharge Clinical Impression: Hypoglycemia, Acute upper GI bleed Patient Disposition: Admitted As Inpatient Prescriptions: No Action insulin lispro protamin-lispro 100 unit/mL (75-25) insulin pen 25 unit subcut QAM Qty: 0 0RF Glucagon (HCl) Emergency Kit 1 mg recon soln 1 mg subcut Q20M PRN (Reason: hypoglycemia) Qty: 1 0RF Rx Instructions: until target blood sugar attained insulin glargine 100 unit/mL (3 mL) insulin pen 50 unit subcut BEDTIME Qty: 0 0RF lisinopril 5 mg tablet 5 mg PO DAILY omeprazole 20 mg capsule,delayed release(DR/EC) 20 mg PO DAILY metformin 850 mg tablet 850 mg PO TID atorvastatin 20 mg tablet 20 mg PO BEDTIME
[2023-02-04 17:47] LABS: Glucose, Whole Blood 60 mg/dL (60-115)
[2023-02-04 17:47] LABS: Glucose, Whole Blood 74 mg/dL (60-115)
[2023-02-04 17:47] LABS: Glucose, Whole Blood 92 mg/dL (60-115)
[2023-02-04 17:51] LABS: Alanine Aminotransferase 22 U/L (0-40); Albumin Level 4.7 g/dL (3.5-5.0); Alkaline Phosphatase 59 U/L (39-117); Anion Gap 32 (12-20); Aspartate Amino Transferase 53 U/L (5-37); Bilirubin Total 0.4 mg/dL (0.0-1.0); Blood Urea Nitrogen 9 mg/dL (9-16); Calcium 8.6 mg/dL (8.4-10.2); Chloride 106 mmol/L (96-108); Creatinine Clr Calc Pharmacy 84.2; Estimated Glomerular Filt Rate > 60; Ethanol 59 mg/dL; Glucose Random 76 mg/dL (60-115); Potassium 4.7 mmol/L (3.3-5.1); Sodium 142 mmol/L (135-145); Total Protein 7.9 g/dL (6.5-8.0)
[2023-02-04 17:52] LABS: Carbon Dioxide 9 mmol/L (22-29)
[2023-02-04] MEDS: ondansetron HCL 4 MG/2 ML VIAL IVPUSH (18:07)
[2023-02-04] MEDS: Dextrose 5 % and 0.45 % NaCl 1,000 ML 125 ML IVCONT (18:12)
--- NOTE | 2023-02-04 18:16 | PC.NURSE ---
nurse went into room and pt had vomited about 1L dark brown liquid vomit into emesis bag. MD notified. sample obtained.
[2023-02-04 18:24] VITALS: BP 166/77; PULSE 80; RESP 18; TEMP 35.8; O2SAT 97
[2023-02-04 18:50] LABS: GASOB Int Neg Ctl Valid YES; GASOB Int Pos Ctl Valid YES; Occult Blood Gastric POSITIVE (NEG)
[2023-02-04 19:09] LABS: Glucose, Whole Blood 79 mg/dL (60-115)
[2023-02-04 19:09] LABS: Glucose, Whole Blood 59 mg/dL (60-115)
[2023-02-04 20:05] LABS: Glucose, Whole Blood 78 mg/dL (60-115)
[2023-02-04] MEDS: Pantoprazole Sodium 40 MG/10 ML VIAL 80 MG IVPUSH (20:18)
[2023-02-04] MEDS: Octreotide Acetate 100 MCG/ML AMPUL 50 MCG IVPUSH (20:19)
[2023-02-04] MEDS: Octreotide Acetate 500 MCG in 0.9 % Sodium Chloride 500 ML 25.05 MCG IVCONT (20:19)
[2023-02-04 20:25] LABS: Glucose, Whole Blood 97 mg/dL (60-115)
[2023-02-04] MEDS: Prochlorperazine Edisylate 10 MG/2 ML VIAL IVPUSH (20:30)
--- NOTE | 2023-02-04 20:55 | PM.IMHP ---
History of Present Illness Date of Service: 02/04/23 Attending physician on admission: Michael Mehta Chief Complaint: Hypoglycemia Pt is a 62-year-old male with a PMH significant for insulin-dependent diabetes type 2, HTN, HLD, GERD, and hx of DKA?who presents to the ED for evaluation of hypoglycemia after being found unresponsive by his girlfriend this afternoon. 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 Patient states that he then went out afterwards and continued drinking until possibly 2-3 a.m.. Patient is unclear exactly what happened last night, though he does not think he 8 anything during the day or at night. He is also unsure of whether he gave himself any insulin last night, or possibly even gave himself extra doses of insulin last night. Patient's girlfriend found him unresponsive on the bed at 16:00. EMS was called who found patient's blood glucose was 20. Received 200 mL of D10 en route and blood sugar was 76 when he arrived at the ED. patient was given food and juice, but blood sugar continued to drop to as low as 59. He was then given dextrose. While in the ED patient had 1 episode of coffee-ground emesis which totaled approximately 1L. Patient was then given IV Protonix, octreotide, and prochlorperazine. Patient states he feels little lightheaded and dizzy, and has some abdominal discomfort. Currently denies nausea. No chest pain/pressure, palpitations. Denies fever, chills. States he has had a history GI bleed before, though he can offer no specifics and is not sure exactly when it is, thinking it may have been ?a couple years ago?. Reports dark colored stool for maybe the past few weeks to a month. Denies increasing fatigue or lightheadedness and dizziness prior to today. Patient denies drinking daily, states he drinks at most once a week on Saturdays. Of note, patient was admitted to the hospital on 06/04/2021 for a similar presentation of unresponsiveness in the setting of hypoglycemia after a night of drinking and not eating. In the ED pt has slightly low temperature of 95.6 degrees and was slightly hypertensive up to 166/77, otherwise vitals WNL. Labs were significant for leukocytosis of 17.1, bicarb of 9, anion gap 32, AST 53, and POC as low as 59. Initial potassium 4.7 but repeat elevated at 6.0. Gastric contents positive for occult blood. Ethyl alcohol level 59. Pt was treated with ondansetron, prochlorperazine, Protonix, octreotide, and D5 normal saline. Pt will be admitted to the hospital under observation for treatment further evaluation of unresponsiveness in the setting of hypoglycemia, and coffee-ground emesis in the setting of likely alcohol gastritis. Review of Systems Review of Systems: Nausea, vomiting Coffee-ground emesis Lightheadedness Abdominal discomfort Denies chest pain/pressure, palpitations No shortness of breath PMFSH Medical History Type 2 diabetes mellitus Seizure Social History Household Members: Significant Other Housing: House Do you presently have visiting nurse or other home services: No Alcohol intake: current Alcohol intake frequency: 0-2 drinks per day Patient Tobacco Use Status: Never used Tobacco service: No Current occupational status: retired [employer] Allergies Allergy/AdvReac Type Severity Reaction Status Date / Time No Known Allergies Allergy Mild NKA Verified 06/13/21 19:33 Active Medications: Current Medications Dextrose/Sodium Chloride (D51/2ns) 1,000 mls @ 125 mls/hr IVCONT .Q8H [facility] Last Admin: 02/04/23 18:12 Dose: 125 mls/hr Octreotide Acetate 500 mcg/ (Sodium Chloride) 501 mls @ 25.05 mls/hr IVCONT .Q20H [facility] Last Admin: 02/04/23 20:19 Dose: 25 mcg/hr, 25.05 mls/hr Home Medications Medication Instructions Recorded Confirmed Last Taken Type atorvastatin 20 mg tablet 20 mg PO BEDTIME 08/04/20 06/14/21 06/03/21 History lisinopril 5 mg tablet 5 mg PO DAILY 08/04/20 06/14/21 06/03/21 History metformin 850 mg tablet 850 mg PO TID 08/04/20 06/14/21 06/03/21 History omeprazole 20 mg capsule,delayed 20 mg PO DAILY 08/04/20 06/14/21 06/03/21 History release Physical Exam Vital Signs and Narrative: Vital Signs: Last Vital Signs Temp 96.5 F L 02/04/23 18:24 Pulse 80 02/04/23 18:24 Resp 18 02/04/23 18:24 BP 166/77 H 02/04/23 18:24 Pulse Ox 97 02/04/23 18:24 O2 Del Method Room Air 02/04/23 18:24 BMI result Body Mass Index 28.5 Constitutional: Alert, in no acute distress. Mental Status: Oriented to person, place and time. Eyes: Pupils are equal, round, and reactive to light. Ear, Nose, and Throat: Oropharynx clear, mucous membranes moist. Ears and nose without deformities. Trachea midline. Respiratory: Clear to auscultation bilaterally. No wheezing, rales, or rhonchi. Cardiovascular: S1, S2 regular. No murmurs, rubs, or gallops. Gastrointestinal: Abdomen soft, non-tender, non-distended. Normal bowel sounds. Neurologic: Cranial nerves II-XII are grossly intact bilaterally. No focal neurological deficits. Moves all extremities spontaneously. Skin: Warm, dry. Musculoskeletal: No cyanosis or clubbing. Extremities: No edema. Psychiatric: Normal mood and affect. Results Labs 02/04/23 17:02 02/04/23 17:02 Labs: Laboratory Results - last 24 hr 02/04/23 02/04/23 02/04/23 16:24 17:02 17:07 MCV 91.2 MCH 30.2 MCHC 33.1 RDW 12.6 Plt Count 291 D MPV 10.4 Immature Gran % (Auto) 1.3 H Neut % (Auto) 89.6 H Lymph % (Auto) 4.6 L [place] % (Auto) 4.2 Eos % (Auto) 0.1 Baso % (Auto) 0.2 Lymph # (Auto) 0.8 L [place] # (Auto) 0.7 Eos # (Auto) 0.0 Baso # (Auto) 0.0 Abs Immat Gran (auto) 0.22 H Absolute Neuts (auto) 15.4 H Absolute Nucleated RBC 0.000 Nucleated RBC % (auto) 0.0 Anion Gap 32 H Estim Creat Clear Calc 84.2 Estimated GFR > 60 POC Glucose 92 74 Random Glucose 76 Calcium 8.6 D Total Bilirubin 0.4 AST 53 H ALT 22 Alkaline Phosphatase 59 Total Protein 7.9 Albumin 4.7 Gastric Occult Blood Ethyl Alcohol 59 02/04/23 02/04/23 02/04/23 17:40 18:18 18:35 MCV MCH MCHC RDW Plt Count MPV Immature Gran % (Auto) Neut % (Auto) Lymph % (Auto) [place] % (Auto) Eos % (Auto) Baso % (Auto) Lymph # (Auto) [place] # (Auto) Eos # (Auto) Baso # (Auto) Abs Immat Gran (auto) Absolute Neuts (auto) Absolute Nucleated RBC Nucleated RBC % (auto) Anion Gap Estim Creat Clear Calc Estimated GFR POC Glucose 60 59 L* Random Glucose Calcium Total Bilirubin AST ALT Alkaline Phosphatase Total Protein Albumin Gastric Occult Blood POSITIVE Ethyl Alcohol 02/04/23 02/04/23 02/04/23 19:04 19:59 20:21 MCV MCH MCHC RDW Plt Count MPV Immature Gran % (Auto) Neut % (Auto) Lymph % (Auto) [place] % (Auto) Eos % (Auto) Baso % (Auto) Lymph # (Auto) [place] # (Auto) Eos # (Auto) Baso # (Auto) Abs Immat Gran (auto) Absolute Neuts (auto) Absolute Nucleated RBC Nucleated RBC % (auto) Anion Gap Estim Creat Clear Calc Estimated GFR POC Glucose 79 78 97 Random Glucose Calcium Total Bilirubin AST ALT Alkaline Phosphatase Total Protein Albumin Gastric Occult Blood Ethyl Alcohol Assessment and Plan (1) Acute upper GI bleed: Status: Acute (2) Hypoglycemia: Status: Acute Plan Pt is a 62-year-old male with a PMH significant for insulin-dependent diabetes type 2, HTN, HLD, GERD, and hx of DKA?who presents to the ED for evaluation of hypoglycemia after being found unresponsive by his girlfriend this afternoon. Pt will be admitted to the hospital under observation for treatment further evaluation of unresponsiveness in the setting of hypoglycemia, and coffee-ground emesis in the setting of likely alcohol gastritis. Unresponsiveness in the setting of hypoglycemia Patient found unresponsive by girlfriend after a night of drinking, not eating, and possibly still injecting insulin EMS noted blood sugar to be 20 Blood sugar still low in ED despite eating and receiving dextrose by EMS Patient placed on D5 half saline, will continue Follow POC Upper GI bleed Pt has one episode of coffee ground emesis of 1L in ED Gastric contents positive for occult blood Likely secondary to alcoholic gastritis; pt with no hx of esophageal varices Received Protonix and octreotide in the ED Continue PPI Follow H&H Consider GI consult if significant drop in H&H Hyperkalemia Patient's potassium 4.7 at time of presentation, 3.5 hours later increased to 6.0 Will repeat potassium to make sure sample not hemolyzed Will obtain staff physical therapy assistant on telemetry Follow BMP Leukocytosis Likely reactionary No indication of active infection Follow CBC HTN Continue home meds HLD Continue statin Full Code Attending:?Dr. Dash DVT Prophylaxis: Pneumatic boots d/t GI bleed Patient admitted to the hospital under observation for treatment and further evaluation hypoglycemia and upper GI bleed. Quality Stroke Does the patient have a stroke diagnosis?: No VTE Prior VTE?: No VTE Risk Level:: Medical - moderate - high VTE Device Contraindication: N/A - Device Ordered VTE Drug Contraindication: Treatment Not Indicated
[2023-02-04 21:32] LABS: Anion Gap 27 (12-20); Blood Urea Nitrogen 11 mg/dL (9-16); Calcium 8.7 mg/dL (8.4-10.2); Carbon Dioxide 11 mmol/L (22-29); Chloride 107 mmol/L (96-108); Creatinine Clr Calc Pharmacy 90.6; Estimated Glomerular Filt Rate > 60; Glucose Random 102 mg/dL (60-115); Sodium 139 mmol/L (135-145)
--- NOTE | 2023-02-04 21:48 | ECG_ITS ---
Test Reason : k levels Blood Pressure : / mmHG Vent. Rate : 077 BPM Atrial Rate : 077 BPM P-R Int : 140 ms QRS Dur : 080 ms QT Int : 380 ms P-R-T Axes : 020 057 054 degrees QTc Int : 430 ms Normal sinus rhythm Normal ECG When compared with ECG of 04-JUN-2021 22:04, No significant change was found Referred By: Pavithra Parisi Electronically Signed By:AVERY SPANGLER MD
[2023-02-04 21:53] LABS: Glucose, Whole Blood 117 mg/dL (60-115)
[2023-02-04 22:03] VITALS: BP 152/65; PULSE 84; RESP 18; TEMP 37.7; O2SAT 95
[2023-02-04 23:13] LABS: Potassium 5.7 mmol/L (3.3-5.1)
[2023-02-05] VITALS (7 sets, daily range): BP systolic 123–141; BP diastolic 65–84; PULSE 63–80; RESP 17–22; TEMP 36.6–37.3; O2SAT 93–95
[2023-02-05] MEDS: Dextrose 5 % and 0.45 % NaCl 1,000 ML 125 ML IVCONT (02:40)
[2023-02-05 02:50] LABS: Glucose, Whole Blood 134 mg/dL (60-115)
[2023-02-05 06:16] LABS: MANUAL DIFF FLAG NO
[2023-02-05 06:19] LABS: Basophils Percent Auto 0.2 % (0-2); Eosinophils Percent Auto 0.1 % (0-4); Hematocrit 38.4 % (42.0-52.0); Hemoglobin 13.3 g/dl (14.0-18.0); Imm Gran Abs Auto 0.06 X10*3/uL (0.00-0.03); Imm Gran Pct Auto 0.5 % (0.0-0.4); Lymphocytes Absolute Auto 1.1 X10*3/uL (1.2-4.9); Mean Corpuscular HGB Conc 34.6 g/dl (31.0-36.0); Mean Corpuscular Hemoglobin 30.1 pg (27.0-33.0); Mean Corpuscular Volume 86.9 fL (80.0-98.0); Mean Platelet Volume 10.6 fL (9.4-12.4); Monocytes Absolute Auto 1.2 X10*3/uL (0.1-1.2); Monocytes Percent Auto 10.8 % (2-11); Neutrophils Absolute Auto 8.8 x10*3/uL (2.0-8.3); Neutrophils Percent Auto 78.4 % (45-73); Platelet Count 207 X10*3/uL (160-400); Red Blood Count 4.42 X10*6/uL (4.60-5.80); Red Cell Distribution Width 12.4 % (11.0-16.0); White Blood Count 11.3 X10*3/uL (4.8-10.8)
[2023-02-05] MEDS: Pantoprazole Sodium 40 MG/10 ML VIAL IVPUSH (06:33)
[2023-02-05 06:34] LABS: Anion Gap 14 (12-20); Blood Urea Nitrogen 13 mg/dL (9-16); Carbon Dioxide 19 mmol/L (22-29); Chloride 107 mmol/L (96-108); Creatinine Clr Calc Pharmacy 83.3; Estimated Glomerular Filt Rate > 60; Glucose Random 146 mg/dL (60-115); Magnesium 1.7 mg/dL (1.6-2.6); Potassium 4.1 mmol/L (3.3-5.1); Sodium 136 mmol/L (135-145)
--- NOTE | 2023-02-05 06:47 | PC.NURSE ---
at approx 1999 pt had one large episode of coffee ground emesis. given compazine w/ good effect . pt did request to use the bathroom to have a bowel movement. rpt'd feeling dizzy upon standing up. used wheelchair to get to bathroom.
[2023-02-05 07:26] LABS: Glucose, Whole Blood 134 mg/dL (60-115)
--- NOTE | 2023-02-05 07:46 | PC.NURSE ---
assumed care of pt at 0700. pt a&o x4, pleasant, calm, and cooperative. pt resting quietly on stretcher in no apparent distress with fluids infusing per mar. call merrill within pt reach. rr even/unlabored. NS on monitor. plan of care ongoing. awaiting bed assignment.
--- NOTE | 2023-02-05 08:08 | PC.NURSE ---
pt given breakfast tray this AM. pt questioned tech stating he was told by someone that he is NPO. t/w spoke with Dr. Gross who confirmed the pt should be NPO and will change orders from diabetic diet to NPO. Dr. Gross also ordered utox. awaiting pt to void. urinal at bedside.
[2023-02-05 10:03] LABS: Amphetamine Screen Urine Not Detected (Not Detect); Barbiturates, Urine Not Detected (Not Detect); Benzodiazepines Screen Urine Not Detected (Not Detect); Cannabinoid Screen Urine Not Detected (Not Detect); Cocaine Screen Urine POSITIVE (Not Detect); Fentanyl, urine Not Detected (Not Detect); Opiate Screen Urine Not Detected (Not Detect); Phencyclidine Screen Urine Not Detected (Not Detect)
--- NOTE | 2023-02-05 10:10 | PC.NURSE ---
still waiting for utox. pt girlfriend at bedside. pt resting quietly on stretcher in no apparent distress. rr even/unlabored. plan of care ongoing.
--- NOTE | 2023-02-05 10:57 | PHA.MEDREC ---
Pharmacy Consult ? Medication Reconciliation Pharmacy has completed the medication reconciliation. spoke with patient to confirm medications.
[2023-02-05 12:43] LABS: Glucose, Whole Blood 116 mg/dL (60-115)
--- NOTE | 2023-02-05 12:50 | PC.NURSE ---
D5 1/2NS infused per mar. pt disconnected. both IVs patent and secured.
--- NOTE | 2023-02-05 13:05 | PC.NURSE ---
pt admission report complete. awaiting pt transport to inpatient room. pt aware of plan of care.
[2023-02-05 14:36] LABS: Glucose, Whole Blood 81 mg/dL (60-115)
--- NOTE | 2023-02-05 14:56 | HO.PM.IMPN ---
Subjective Subjective Date of Service: 02/05/23 Interval History: More alert this afternoon. No acute distress. Vomited coffee-ground emesis in the ER this a.m.. .. None further Review of Systems Denies chest pain Denies shortness of breath Denies nausea vomiting diarrhea Denies fever chills Physical Exam Vital Signs: Vital Signs: Last Vital Signs Temp 98.9 F 02/05/23 14:49 Pulse 66 02/05/23 14:49 Resp 20 02/05/23 14:49 BP 130/84 02/05/23 14:49 Pulse Ox 95 02/05/23 14:49 O2 Del Method Room Air 02/05/23 14:49 BMI result Body Mass Index 28.5 Const: Other: Awake alert oriented x3 no acute distress Resp: Other: Clear to auscultation bilaterally no rales rhonchi or wheezes Cardio: Other: No S4; positive S1-S2; no S3 murmurs rubs or gallops GI: Other: Soft nontender nondistended normoactive bowel sounds Neuro: Other: Cranial nerves 2-12 grossly intact as tested. Motor is 5/5 all extremities. Sensation is intact. Cognition appropriate Extrem: Other: No edema bilaterally Objective Data Active Medications Acetaminophen (Acetaminophen 325 Mg Tablet) 650 mg PO Q6H PRN PRN Reason: Pain, Mild (Pain Scale 1-3) Atorvastatin Calcium (Atorvastatin Calcium 20 Mg Tablet) 20 mg PO BEDTIME [facility] Benzonatate (Benzonatate 100 Mg Capsule) 100 mg PO TID PRN PRN Reason: Cough Docusate Sodium (Docusate Sodium 100 Mg Capsule) 100 mg PO DAILY PRN PRN Reason: Constipation Famotidine (Famotidine 20 Mg Tablet) 20 mg PO BID PRN PRN Reason: Heartburn Octreotide Acetate 500 mcg/ (Sodium Chloride) 501 mls @ 25.05 mls/hr IVCONT .Q20H [facility] Last Admin: 02/04/23 20:19 Dose: 25 mcg/hr, 25.05 mls/hr Documented By: MARIA FERNANDA Levetiracetam (Levetiracetam 500 Mg Tablet) 500 mg PO BID [facility] Lisinopril (Lisinopril 5 Mg Tablet) 5 mg PO DAILY [facility]; Protocol Magnesium Oxide (Magnesium Oxide 400 Mg Tablet) 400 mg PO BID [facility] Melatonin (Melatonin 3 Mg Tablet) 6 mg PO BEDTIME PRN PRN Reason: Insomnia Metformin HCl (Metformin Hcl 850 Mg Tablet) 850 mg PO TID COUNT INCLUDES THE [facility] Non-Formulary Medication (Folic Acid) 0.8 mg PO DAILY COUNT INCLUDES THE [facility] Non-Formulary Medication ([place]-3 Fatty Acids) 500 mg PO DAILY COUNT INCLUDES THE [facility] Ondansetron HCl (Ondansetron Hcl 4 Mg/2 Ml Vial) 4 mg IVPUSH Q8H PRN PRN Reason: Nausea and Vomiting Pantoprazole Sodium (Pantoprazole Sodium 40 Mg/10 Ml Vial) 40 mg IVPUSH DAILY@0630 COUNT INCLUDES THE [facility] Last Admin: 02/05/23 06:33 Dose: 40 mg Documented By: MARIA FERNANDA Sodium Chloride (0.9 % Sodium Chloride Flush 3 Ml Syringe) 3 ml IVFLUSH QSHIFT COUNT INCLUDES THE [facility] Last Admin: 02/05/23 07:35 Dose: Not Given Documented By: MOHAN Non-Admin Reason: Med Not Available Labs 02/05/23 06:03 02/05/23 06:03 Labs: Laboratory Results - last 24 hr 02/04/23 02/04/23 02/04/23 16:24 17:02 17:07 MCV 91.2 MCH 30.2 MCHC 33.1 RDW 12.6 Plt Count 291 D MPV 10.4 Immature Gran % (Auto) 1.3 H Neut % (Auto) 89.6 H Lymph % (Auto) 4.6 L [place] % (Auto) 4.2 Eos % (Auto) 0.1 Baso % (Auto) 0.2 Lymph # (Auto) 0.8 L [place] # (Auto) 0.7 Eos # (Auto) 0.0 Baso # (Auto) 0.0 Abs Immat Gran (auto) 0.22 H Absolute Neuts (auto) 15.4 H Absolute Nucleated RBC 0.000 Nucleated RBC % (auto) 0.0 Anion Gap 32 H Estim Creat Clear Calc 84.2 Estimated GFR > 60 POC Glucose 92 74 Random Glucose 76 Calcium 8.6 D Magnesium Total Bilirubin 0.4 AST 53 H ALT 22 Alkaline Phosphatase 59 Total Protein 7.9 Albumin 4.7 Gastric Occult Blood Urine Opiates Screen Urine Fentanyl Screen Ur Barbiturates Screen Ur Phencyclidine Scrn Ur Amphetamines Screen U Benzodiazepines Scrn Urine Cocaine Screen U Marijuana (THC) Screen Ethyl Alcohol 59 02/04/23 02/04/23 02/04/23 17:40 18:18 18:35 MCV MCH MCHC RDW Plt Count MPV Immature Gran % (Auto) Neut % (Auto) Lymph % (Auto) [place] % (Auto) Eos % (Auto) Baso % (Auto) Lymph # (Auto) [place] # (Auto) Eos # (Auto) Baso # (Auto) Abs Immat Gran (auto) Absolute Neuts (auto) Absolute Nucleated RBC Nucleated RBC % (auto) Anion Gap Estim Creat Clear Calc Estimated GFR POC Glucose 60 59 L* Random Glucose Calcium Magnesium Total Bilirubin AST ALT Alkaline Phosphatase Total Protein Albumin Gastric Occult Blood POSITIVE Urine Opiates Screen Urine Fentanyl Screen Ur Barbiturates Screen Ur Phencyclidine Scrn Ur Amphetamines Screen U Benzodiazepines Scrn Urine Cocaine Screen U Marijuana (THC) Screen Ethyl Alcohol 02/04/23 02/04/23 02/04/23 19:04 19:59 20:21 MCV MCH MCHC RDW Plt Count MPV Immature Gran % (Auto) Neut % (Auto) Lymph % (Auto) [place] % (Auto) Eos % (Auto) Baso % (Auto) Lymph # (Auto) [place] # (Auto) Eos # (Auto) Baso # (Auto) Abs Immat Gran (auto) Absolute Neuts (auto) Absolute Nucleated RBC Nucleated RBC % (auto) Anion Gap Estim Creat Clear Calc Estimated GFR POC Glucose 79 78 97 Random Glucose Calcium Magnesium Total Bilirubin AST ALT Alkaline Phosphatase Total Protein Albumin Gastric Occult Blood Urine Opiates Screen Urine Fentanyl Screen Ur Barbiturates Screen Ur Phencyclidine Scrn Ur Amphetamines Screen U Benzodiazepines Scrn Urine Cocaine Screen U Marijuana (THC) Screen Ethyl Alcohol 02/04/23 02/04/23 02/05/23 20:42 21:49 02:44 MCV MCH MCHC RDW Plt Count MPV Immature Gran % (Auto) Neut % (Auto) Lymph % (Auto) [place] % (Auto) Eos % (Auto) Baso % (Auto) Lymph # (Auto) [place] # (Auto) Eos # (Auto) Baso # (Auto) Abs Immat Gran (auto) Absolute Neuts (auto) Absolute Nucleated RBC Nucleated RBC % (auto) Anion Gap 27 H Estim Creat Clear Calc 90.6 Estimated GFR > 60 POC Glucose 117 H 134 H Random Glucose 102 Calcium 8.7 Magnesium Total Bilirubin AST ALT Alkaline Phosphatase Total Protein Albumin Gastric Occult Blood Urine Opiates Screen Urine Fentanyl Screen Ur Barbiturates Screen Ur Phencyclidine Scrn Ur Amphetamines Screen U Benzodiazepines Scrn Urine Cocaine Screen U Marijuana (THC) Screen Ethyl Alcohol 02/05/23 02/05/23 02/05/23 06:03 07:13 09:47 MCV 86.9 MCH 30.1 MCHC 34.6 RDW 12.4 Plt Count 207 D MPV 10.6 Immature Gran % (Auto) 0.5 H Neut % (Auto) 78.4 H Lymph % (Auto) 10.0 L [place] % (Auto) 10.8 Eos % (Auto) 0.1 Baso % (Auto) 0.2 Lymph # (Auto) 1.1 L [place] # (Auto) 1.2 Eos # (Auto) 0.0 Baso # (Auto) 0.0 Abs Immat Gran (auto) 0.06 H Absolute Neuts (auto) 8.8 H Absolute Nucleated RBC 0.000 Nucleated RBC % (auto) 0.0 Anion Gap 14 Estim Creat Clear Calc 83.3 Estimated GFR > 60 POC Glucose 134 H Random Glucose 146 H Calcium 8.0 L D Magnesium 1.7 Total Bilirubin AST ALT Alkaline Phosphatase Total Protein Albumin Gastric Occult Blood Urine Opiates Screen Not Detected Urine Fentanyl Screen Not Detected Ur Barbiturates Screen Not Detected Ur Phencyclidine Scrn Not Detected Ur Amphetamines Screen Not Detected U Benzodiazepines Scrn Not Detected Urine Cocaine Screen POSITIVE H U Marijuana (THC) Screen Not Detected Ethyl Alcohol 02/05/23 02/05/23 12:38 14:33 MCV MCH MCHC RDW Plt Count MPV Immature Gran % (Auto) Neut % (Auto) Lymph % (Auto) [place] % (Auto) Eos % (Auto) Baso % (Auto) Lymph # (Auto) [place] # (Auto) Eos # (Auto) Baso # (Auto) Abs Immat Gran (auto) Absolute Neuts (auto) Absolute Nucleated RBC Nucleated RBC % (auto) Anion Gap Estim Creat Clear Calc Estimated GFR POC Glucose 116 H 81 Random Glucose Calcium Magnesium Total Bilirubin AST ALT Alkaline Phosphatase Total Protein Albumin Gastric Occult Blood Urine Opiates Screen Urine Fentanyl Screen Ur Barbiturates Screen Ur Phencyclidine Scrn Ur Amphetamines Screen U Benzodiazepines Scrn Urine Cocaine Screen U Marijuana (THC) Screen Ethyl Alcohol Assessment and Plan (1) Unresponsive episode: Status: Acute (2) Acute upper GI bleed: Status: Acute (3) Seizure: Status: Acute Plan Pt is a 62-year-old male with a PMH significant for insulin-dependent diabetes type 2, HTN, HLD, GERD, and hx of DKA?who presents to the ED for evaluation of hypoglycemia after being found unresponsive by his girlfriend this afternoon. Pt will be admitted to the hospital under observation for treatment further evaluation of unresponsiveness in the setting of hypoglycemia, and coffee-ground emesis in the setting of likely alcohol gastritis. 1.Unresponsiveness/hypoglycemia -patient admits to alcohol and cocaine at least a day prior to admission -remaining tox screen negative -denies daily ETOH; denies history of hematemesis -sugars stable at this time 2.Upper GI bleed -on IV PPI/octreotide.. .no further hematemesis -continue octreotide pending GI consult -NPO after midnight night 3.Hyperkalemia -resolved -follow renals/divalents 4.HTN -acceptable control on current therapies -adjust as indicated 5. Polysubstance abuse -addiction Medicine consult 6. Seizure disorder -none since admit -continue outpatient therapies Full Code Pneumatic boots Requires ongoing inpatient hospitalization secondary to the need for IV octreotide and IV PPI secondary to upper GI bleed. Given questionable alcohol history, will need specialist consult to ascertain need for EGD. Quality Stroke Does the patient have a stroke diagnosis?: No VTE Prior VTE?: No VTE Risk Level:: Medical - moderate - high VTE Device Contraindication: N/A - Device Ordered VTE Drug Contraindication: Treatment Not Indicated
--- NOTE | 2023-02-05 15:16 | MHC.SHP ---
Pre-Procedural Eval Section A Date of Service: 02/05/23 The patient is an INPATIENT: Yes Changes since office visit: No Cold of Flu in the past 2 weeks, No New Medical Problems, No Changes in Medication and No Patient answered all questions The History & Physical has been completed within 30 days and I have reviewed it.: Yes Section B Chief Complaint: Hypoglycemia Allergies: Allergies Allergy/AdvReac Type Severity Reaction Status Date / Time No Known Allergies Allergy Mild NKA Verified 06/13/21 19:33 Plan I have reviewed the history and physical and performed a pertinent physical examination on my patient. No changes have occurred unless specified. Time Spent With Patient Time: Total time managing care of this patient today ____ minutes.
--- NOTE | 2023-02-05 15:17 | PM.EVENT ---
Event Note Date of Service: 02/05/23 Event Note: GI consult dictated EGD scheduled 02/06 for further evaluation of coffee ground emesis. Time Spent With Patient Time: Total time managing care of this patient today ____ minutes.
[2023-02-05] MEDS: 0.9 % Sodium Chloride Flush 3 ML SYRINGE IVFLUSH ×2 (15:57→20:13)
[2023-02-05] MEDS: Octreotide Acetate 500 MCG in 0.9 % Sodium Chloride 500 ML 25.05 MCG IVCONT (15:57)
[2023-02-05 16:01] LABS: Glucose, Whole Blood 72 mg/dL (60-115)
[2023-02-05] MEDS: Magnesium Oxide 400 MG TABLET PO (20:13)
[2023-02-05] MEDS: levETIRAcetam 500 MG TABLET PO (20:13)
[2023-02-05] MEDS: Atorvastatin Calcium 20 MG TABLET PO (20:13)
[2023-02-05 21:01] LABS: Glucose, Whole Blood 142 mg/dL (60-115)
--- NOTE | 2023-02-05 21:36 | CONS_ITS ---
DATE OF SERVICE: 02/05/2023 REFERRING PHYSICIAN: Dr. Gross REASON FOR CONSULTATION: GI bleed. HISTORY OF PRESENT ILLNESS: The patient is a pleasant 62-year-old man, who was admitted to the hospital after presenting to the emergency room yesterday with hypoglycemia and change in mental status. He was drinking alcohol until about 2 in the morning by his report with over 10 to 12 drinks and the next morning was unresponsive in the afternoon. He was brought by ambulance to the ER after he was noted to be hypoglycemic with a blood glucose of 20. He did have 1 episode of coffee ground emesis in the emergency department, but has not had any melena. He denies a prior history of peptic ulcer disease. He did have an episode of GI bleeding and was hospitalized in 2007 for coffee ground emesis, but did not undergo endoscopy at that time. He denies daily alcohol use, but does go out drinking once per week. He has no history of cirrhosis and no history of esophageal varices or variceal bleeding. Initial hematocrit in the emergency department was 46.8, which dropped to 38.4 after hydration. He has had no melena. He was treated with IV Protonix and octreotide. PAST MEDICAL HISTORY: 1. Diabetes mellitus. 2. History of seizure disorder. CURRENT MEDICATIONS: His current medication list is reviewed in the chart. ALLERGIES: THERE ARE NONE REPORTED. FAMILY HISTORY: Positive for prostate or rectal cancer in his father. SOCIAL HISTORY: There is no current tobacco use. Alcohol use is as noted above. REVIEW OF SYSTEMS: SKIN: No pruritus. HEENT: Negative. CARDIOPULMONARY: He denies shortness of breath or chest pain. GASTROINTESTINAL: As above. He reports having a colonoscopy around age 52 and a partial colonoscopy, which was incomplete due to a prep problem several years ago. GENITOURINARY: Negative. NEUROPSYCHIATRIC: Negative. PHYSICAL EXAMINATION: GENERAL: Shows a pleasant male, lying comfortably in bed. VITAL SIGNS: Appear stable. SKIN: Anicteric. HEENT: Shows no scleral icterus. NECK: Without lymphadenopathy or thyromegaly. LUNGS: Clear. HEART: Shows a regular rate and rhythm. S1, S2. No murmur. ABDOMEN: Soft without focal masses or tenderness. Bowel sounds are present. No organomegaly is noted. EXTREMITIES: Without edema. LABORATORY DATA: Reviewed. IMPRESSION: Gastrointestinal bleeding. His presentation appears consistent with an upper gastrointestinal bleed, likely associated with gastritis due to alcohol use. Other possible causes would include erosive esophagitis, arteriovenous malformations, or mass lesions, as well as peptic ulcer disease. This does not appear consistent with esophageal varices or bleeding. I have discussed endoscopy with him including risks and benefits, he understands these and agrees to proceed. This will be arranged for tomorrow. We did discuss that his binge alcohol use is detrimental to his overall health in terms of liver, GI problems and his diabetes. I agree with continuing him on a proton pump inhibitor. Thanks for asking me to see him. I will follow him in the hospital with you. MD ANKIT Aragon/STEVE / [phone]
[2023-02-06] VITALS (9 sets, daily range): BP systolic 100–140; BP diastolic 56–80; PULSE 55–71; RESP 16–20; TEMP 36.3–37.3; O2SAT 92–98
[2023-02-06 05:41] LABS: MANUAL DIFF FLAG NO
[2023-02-06 05:48] LABS: Basophils Percent Auto 0.2 % (0-2); Eosinophils Absolute Auto 0.2 X10*3/uL (0.0-0.4); Hematocrit 39.5 % (42.0-52.0); Hemoglobin 13.7 g/dl (14.0-18.0); Imm Gran Abs Auto 0.02 X10*3/uL (0.00-0.03); Imm Gran Pct Auto 0.2 % (0.0-0.4); Lymphocytes Absolute Auto 1.3 X10*3/uL (1.2-4.9); Lymphocytes Percent Auto 14.6 % (20-40); Mean Corpuscular HGB Conc 34.7 g/dl (31.0-36.0); Mean Corpuscular Hemoglobin 30.5 pg (27.0-33.0); Mean Platelet Volume 10.8 fL (9.4-12.4); Monocytes Absolute Auto 0.7 X10*3/uL (0.1-1.2); Monocytes Percent Auto 8.4 % (2-11); Neutrophils Absolute Auto 6.4 x10*3/uL (2.0-8.3); Neutrophils Percent Auto 74.6 % (45-73); Platelet Count 180 X10*3/uL (160-400); Red Blood Count 4.49 X10*6/uL (4.60-5.80); Red Cell Distribution Width 12.3 % (11.0-16.0); White Blood Count 8.5 X10*3/uL (4.8-10.8)
[2023-02-06 06:10] LABS: Alanine Aminotransferase 20 U/L (0-40); Albumin Level 3.8 g/dL (3.5-5.0); Alkaline Phosphatase 50 U/L (39-117); Anion Gap 12 (12-20); Aspartate Amino Transferase 46 U/L (5-37); Bilirubin Total 0.8 mg/dL (0.0-1.0); Blood Urea Nitrogen 8 mg/dL (9-16); Calcium 8.4 mg/dL (8.4-10.2); Carbon Dioxide 25 mmol/L (22-29); Chloride 110 mmol/L (96-108); Creatinine Clr Calc Pharmacy 95.8; Estimated Glomerular Filt Rate > 60; Glucose Fasting 95 mg/dL (60-99); Potassium 3.8 mmol/L (3.3-5.1); Sodium 143 mmol/L (135-145); Total Protein 6.4 g/dL (6.5-8.0)
[2023-02-06 08:03] LABS: Glucose, Whole Blood 116 mg/dL (60-115)
[2023-02-06] MEDS: Magnesium Oxide 400 MG TABLET PO ×2 (08:08→21:16)
[2023-02-06] MEDS: 0.9 % Sodium Chloride Flush 3 ML SYRINGE IVFLUSH ×3 (08:08→21:18)
[2023-02-06] MEDS: Folic Acid 1 MG TABLET PO (08:08)
[2023-02-06] MEDS: lisinopriL 5 MG TABLET PO (08:08)
[2023-02-06] MEDS: levETIRAcetam 500 MG TABLET PO ×2 (08:08→21:16)
--- NOTE | 2023-02-06 08:25 | MHC.CM.PN ---
CM met with Patient at bedside. 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 Home/self care is the goal and CM has initiated and will follow for dc planning. Patient's Sister/Rhea is the HCP and the PCP is Dr. Stephanie Snell.
[2023-02-06] MEDS: Octreotide Acetate 500 MCG in 0.9 % Sodium Chloride 500 ML 25.05 MCG IVCONT (11:18)
[2023-02-06 12:06] LABS: Glucose, Whole Blood 144 mg/dL (60-115)
--- NOTE | 2023-02-06 12:26 | MHC.RECOVRN ---
Met with pt in 443 after consult placed to Addiction Medicine for polysubstance use. Pt had presented to the ED after he was found unresponsive by family at home with an initial blood glucose of 20. Pt had been out with friends and drinking alcohol the night prior. Upon evaluation, pt admitted for acute upper GI bleed and hypoglycemia. Pt sitting in bed, awake, alert, difficult to engage in conversation regarding substance use. Pt reports alcohol use once weekly and cocaine use 3x/year, on special occasions. Pt denies concerns regarding alcohol or substance use. Pt denies hx overdoses. Educated pt on fentanyl in cocaine supply, pt verbalizes understanding. Discussed harm reduction, including fentanyl test strips, pt declines taking test supplies. Pt declines all recovery support at this time. Encouraged pt to call if he would like to discuss further or if questions or concerns arise, pt agreeable. Discussed with Tonya Kelly APRN.
--- NOTE | 2023-02-06 12:51 | P.CONAN_ITS ---
HPI - Anesthesia Eval Consult details Narrative: upper GIfor bloody vomit coffee grinds on , none since .coccaine sunday [facility] Active Problems Active Problems: All Active Problems (Updated 02/05/23 @ 15:10 by Kaiden Gross DO) Type 2 diabetes mellitus (Acute) Acute upper GI bleed (Acute) Hypoglycemia (Acute) Seizure (Acute) Unresponsive episode (Acute) Tremor (Acute) Hypoglycemia (Acute) Altered mental state (Acute) Cervical radiculopathy (Acute) Past Medical History Medical History Type 2 diabetes mellitus Seizure Family History Family history of problems with anesthesia: No Surgical History History of Problems with Anesthesia: No Social History Social History Household Members: Significant Other and Family Housing: House Do you presently have visiting nurse or other home services: No Alcohol intake: current Alcohol intake frequency: 0-2 drinks per day Patient Tobacco Use Status: Never used Tobacco Smoked in Last 30 Days: No Patient Interested in Nicotine Replacement: No Patient Given Instructions on How to Stop Smoking: No Second Hand Smoke Exposure: No Use of substances other than those prescribed or required for medical reasons: No Currently Displaying Signs/Symptoms of Drug Intoxication Withdrawal: No Any prior treatment program specific to substance use: No Have you been hit, kicked, punched, or otherwise hurt by someone within the past year? If so, by whom?: No Do you feel safe in your current relationship?: Yes Is there a partner from a previous relationship who is making you feel unsafe now?: No Are you made to feel afraid or neglected: No Advance Directives: Yes Advance Directives on File: Yes Advance Directives Date on File: 02/05/23 Do you have thoughts of harming others: None Do you have a plan to hurt others: No Plan Recently lost weight without trying: No Eating poorly because of decreased appetite: No Nutrition Risks: No Nutritional Risk service: No Current occupational status: retired Meds Allergies Allergy/AdvReac Type Severity Reaction Status Date / Time No Known Allergies Allergy Mild NKA Verified 06/13/21 19:33 Active Medications: Current Medications Acetaminophen (Acetaminophen 325 Mg Tablet) 650 mg PO Q6H PRN PRN Reason: Pain, Mild (Pain Scale 1-3) Atorvastatin Calcium (Atorvastatin Calcium 20 Mg Tablet) 20 mg PO BEDTIME [facility] Last Admin: 02/05/23 20:13 Dose: 20 mg Benzonatate (Benzonatate 100 Mg Capsule) 100 mg PO TID PRN PRN Reason: Cough Dextrose (Dextrose 50 % 25 Gm/50 Ml Syringe) 25 gm IVPUSH Q15M PRN; Protocol PRN Reason: per Hypoglycemia Standing Ord. Docusate Sodium (Docusate Sodium 100 Mg Capsule) 100 mg PO DAILY PRN PRN Reason: Constipation Folic Acid (Folic Acid 1 Mg Tablet) 1 mg PO DAILY [facility] Last Admin: 02/06/23 08:08 Dose: 1 mg Glucose (Glucose Gel 15 Gm Gel..Gram.) 15 gm PO Q15M PRN; Protocol PRN Reason: per Hypoglycemia Standing Ord. Octreotide Acetate 500 mcg/ (Sodium Chloride) 501 mls @ 25.05 mls/hr IVCONT .Q20H [facility] Last Admin: 02/06/23 11:18 Dose: 25 mcg/hr, 25.05 mls/hr Insulin Human Lispro (Insulin Lispro 100 Unit/Ml 3 Ml Vial) 0 unit SUBCUT QIDACHS [facility]; Protocol Last Admin: 02/06/23 10:59 Dose: Not Given Levetiracetam (Levetiracetam 500 Mg Tablet) 500 mg PO BID [facility] Last Admin: 02/06/23 08:08 Dose: 500 mg Lisinopril (Lisinopril 5 Mg Tablet) 5 mg PO DAILY [facility]; Protocol Last Admin: 02/06/23 08:08 Dose: 5 mg Magnesium Oxide (Magnesium Oxide 400 Mg Tablet) 400 mg PO BID [facility] Last Admin: 02/06/23 08:08 Dose: 400 mg Melatonin (Melatonin 3 Mg Tablet) 6 mg PO BEDTIME PRN PRN Reason: Insomnia Ondansetron HCl (Ondansetron Hcl 4 Mg/2 Ml Vial) 4 mg IVPUSH Q8H PRN PRN Reason: Nausea and Vomiting Pantoprazole Sodium (Pantoprazole Sodium 40 Mg/10 Ml Vial) 40 mg IVPUSH DAILY@0630 [facility] Last Admin: 02/06/23 05:46 Dose: Not Given Sodium Chloride (0.9 % Sodium Chloride Flush 3 Ml Syringe) 3 ml IVFLUSH QSHIFT [facility] Last Admin: 02/06/23 08:08 Dose: 3 ml Home Medications Medication Instructions Recorded Confirmed Last Taken Type atorvastatin 20 mg tablet 20 mg PO BEDTIME 08/04/20 02/05/23 06/03/21 History lisinopril 5 mg tablet 5 mg PO DAILY 08/04/20 02/05/23 06/03/21 History metformin 850 mg tablet 850 mg PO TID 08/04/20 02/05/23 06/03/21 History famotidine 20 mg tablet 20 mg PO BID PRN Heartburn 02/05/23 02/05/23 Unknown History folic acid 800 mcg tablet 0.8 mg PO DAILY 02/05/23 02/05/23 Unknown History insulin glargine 100 unit/mL (3 60 unit subcut BEDTIME 02/05/23 02/05/23 Unknown History mL) subcutaneous pen levetiracetam 500 mg tablet 500 mg PO BID 02/05/23 02/05/23 Unknown History magnesium oxide 400 mg (241.3 mg 400 mg PO BID 02/05/23 02/05/23 Unknown History magnesium) tablet omega-3 fatty acids 500 mg capsule 500 mg PO DAILY 02/05/23 02/05/23 Unknown History Exam Height,Weight and Vital Signs: Height 5 ft 8 in Weight 85 kg Last Vital Signs Temp 97.3 F 02/06/23 11:18 Pulse 62 02/06/23 11:18 Resp 20 02/06/23 11:18 BP 128/75 02/06/23 11:18 Pulse Ox 96 02/06/23 11:18 O2 Del Method Room Air 02/06/23 11:18 Pertinent Lab Results Pertinent Lab Results: Laboratory Tests 02/04/23 02/04/23 02/04/23 16:24 17:02 17:07 WBC 17.1 H RBC 5.13 Hgb 15.5 D Hct 46.8 D MCV 91.2 MCH 30.2 MCHC 33.1 RDW 12.6 Plt Count 291 D MPV 10.4 Immature Gran % (Auto) 1.3 H Neut % (Auto) 89.6 H Lymph % (Auto) 4.6 L Wheeler % (Auto) 4.2 Eos % (Auto) 0.1 Baso % (Auto) 0.2 Lymph # (Auto) 0.8 L Wheeler # (Auto) 0.7 Eos # (Auto) 0.0 Baso # (Auto) 0.0 Abs Immat Gran (auto) 0.22 H Absolute Neuts (auto) 15.4 H Absolute Nucleated RBC 0.000 Nucleated RBC % (auto) 0.0 Sodium 142 Potassium 4.7 Chloride 106 Carbon Dioxide 9 L* D Anion Gap 32 H BUN 9 Creatinine 0.99 Estim Creat Clear Calc 84.2 Estimated GFR > 60 POC Glucose 92 74 Random Glucose 76 Fasting Glucose Calcium 8.6 D Magnesium Total Bilirubin 0.4 AST 53 H ALT 22 Alkaline Phosphatase 59 Total Protein 7.9 Albumin 4.7 Gastric Occult Blood Urine Opiates Screen Urine Fentanyl Screen Ur Barbiturates Screen Ur Phencyclidine Scrn Ur Amphetamines Screen U Benzodiazepines Scrn Urine Cocaine Screen U Marijuana (THC) Screen Ethyl Alcohol 59 02/04/23 02/04/23 02/04/23 17:40 18:18 18:35 WBC RBC Hgb Hct MCV MCH MCHC RDW Plt Count MPV Immature Gran % (Auto) Neut % (Auto) Lymph % (Auto) Wheeler % (Auto) Eos % (Auto) Baso % (Auto) Lymph # (Auto) Wheeler # (Auto) Eos # (Auto) Baso # (Auto) Abs Immat Gran (auto) Absolute Neuts (auto) Absolute Nucleated RBC Nucleated RBC % (auto) Sodium Potassium Chloride Carbon Dioxide Anion Gap BUN Creatinine Estim Creat Clear Calc Estimated GFR POC Glucose 60 59 L* Random Glucose Fasting Glucose Calcium Magnesium Total Bilirubin AST ALT Alkaline Phosphatase Total Protein Albumin Gastric Occult Blood POSITIVE Urine Opiates Screen Urine Fentanyl Screen Ur Barbiturates Screen Ur Phencyclidine Scrn Ur Amphetamines Screen U Benzodiazepines Scrn Urine Cocaine Screen U Marijuana (THC) Screen Ethyl Alcohol 02/04/23 02/04/23 02/04/23 19:04 19:59 20:21 WBC RBC Hgb Hct MCV MCH MCHC RDW Plt Count MPV Immature Gran % (Auto) Neut % (Auto) Lymph % (Auto) Wheeler % (Auto) Eos % (Auto) Baso % (Auto) Lymph # (Auto) Wheeler # (Auto) Eos # (Auto) Baso # (Auto) Abs Immat Gran (auto) Absolute Neuts (auto) Absolute Nucleated RBC Nucleated RBC % (auto) Sodium Potassium Chloride Carbon Dioxide Anion Gap BUN Creatinine Estim Creat Clear Calc Estimated GFR POC Glucose 79 78 97 Random Glucose Fasting Glucose Calcium Magnesium Total Bilirubin AST ALT Alkaline Phosphatase Total Protein Albumin Gastric Occult Blood Urine Opiates Screen Urine Fentanyl Screen Ur Barbiturates Screen Ur Phencyclidine Scrn Ur Amphetamines Screen U Benzodiazepines Scrn Urine Cocaine Screen U Marijuana (THC) Screen Ethyl Alcohol 02/04/23 02/04/23 02/04/23 20:42 21:49 23:03 WBC RBC Hgb Hct MCV MCH MCHC RDW Plt Count MPV Immature Gran % (Auto) Neut % (Auto) Lymph % (Auto) Wheeler % (Auto) Eos % (Auto) Baso % (Auto) Lymph # (Auto) Wheeler # (Auto) Eos # (Auto) Baso # (Auto) Abs Immat Gran (auto) Absolute Neuts (auto) Absolute Nucleated RBC Nucleated RBC % (auto) Sodium 139 Potassium 6.0 H* D 5.7 H Chloride 107 Carbon Dioxide 11 L Anion Gap 27 H BUN 11 Creatinine 0.92 Estim Creat Clear Calc 90.6 Estimated GFR > 60 POC Glucose 117 H Random Glucose 102 Fasting Glucose Calcium 8.7 Magnesium Total Bilirubin AST ALT Alkaline Phosphatase Total Protein Albumin Gastric Occult Blood Urine Opiates Screen Urine Fentanyl Screen Ur Barbiturates Screen Ur Phencyclidine Scrn Ur Amphetamines Screen U Benzodiazepines Scrn Urine Cocaine Screen U Marijuana (THC) Screen Ethyl Alcohol 02/05/23 02/05/23 02/05/23 02:44 06:03 07:13 WBC 11.3 H RBC 4.42 L Hgb 13.3 L Hct 38.4 L MCV 86.9 MCH 30.1 MCHC 34.6 RDW 12.4 Plt Count 207 D MPV 10.6 Immature Gran % (Auto) 0.5 H Neut % (Auto) 78.4 H Lymph % (Auto) 10.0 L Wheeler % (Auto) 10.8 Eos % (Auto) 0.1 Baso % (Auto) 0.2 Lymph # (Auto) 1.1 L Wheeler # (Auto) 1.2 Eos # (Auto) 0.0 Baso # (Auto) 0.0 Abs Immat Gran (auto) 0.06 H Absolute Neuts (auto) 8.8 H Absolute Nucleated RBC 0.000 Nucleated RBC % (auto) 0.0 Sodium 136 Potassium 4.1 D Chloride 107 Carbon Dioxide 19 L Anion Gap 14 BUN 13 Creatinine 1.00 Estim Creat Clear Calc 83.3 Estimated GFR > 60 POC Glucose 134 H 134 H Random Glucose 146 H Fasting Glucose Calcium 8.0 L D Magnesium 1.7 Total Bilirubin AST ALT Alkaline Phosphatase Total Protein Albumin Gastric Occult Blood Urine Opiates Screen Urine Fentanyl Screen Ur Barbiturates Screen Ur Phencyclidine Scrn Ur Amphetamines Screen U Benzodiazepines Scrn Urine Cocaine Screen U Marijuana (THC) Screen Ethyl Alcohol 02/05/23 02/05/23 02/05/23 09:47 12:38 14:33 WBC RBC Hgb Hct MCV MCH MCHC RDW Plt Count MPV Immature Gran % (Auto) Neut % (Auto) Lymph % (Auto) Wheeler % (Auto) Eos % (Auto) Baso % (Auto) Lymph # (Auto) Wheeler # (Auto) Eos # (Auto) Baso # (Auto) Abs Immat Gran (auto) Absolute Neuts (auto) Absolute Nucleated RBC Nucleated RBC % (auto) Sodium Potassium Chloride Carbon Dioxide Anion Gap BUN Creatinine Estim Creat Clear Calc Estimated GFR POC Glucose 116 H 81 Random Glucose Fasting Glucose Calcium Magnesium Total Bilirubin AST ALT Alkaline Phosphatase Total Protein Albumin Gastric Occult Blood Urine Opiates Screen Not Detected Urine Fentanyl Screen Not Detected Ur Barbiturates Screen Not Detected Ur Phencyclidine Scrn Not Detected Ur Amphetamines Screen Not Detected U Benzodiazepines Scrn Not Detected Urine Cocaine Screen POSITIVE H U Marijuana (THC) Screen Not Detected Ethyl Alcohol 02/05/23 02/05/23 02/06/23 15:54 20:38 05:34 WBC 8.5 RBC 4.49 L Hgb 13.7 L Hct 39.5 L MCV 88.0 MCH 30.5 MCHC 34.7 RDW 12.3 Plt Count 180 MPV 10.8 Immature Gran % (Auto) 0.2 Neut % (Auto) 74.6 H Lymph % (Auto) 14.6 L Wheeler % (Auto) 8.4 Eos % (Auto) 2.0 Baso % (Auto) 0.2 Lymph # (Auto) 1.3 Wheeler # (Auto) 0.7 Eos # (Auto) 0.2 Baso # (Auto) 0.0 Abs Immat Gran (auto) 0.02 Absolute Neuts (auto) 6.4 Absolute Nucleated RBC 0.000 Nucleated RBC % (auto) 0.0 Sodium 143 Potassium 3.8 Chloride 110 H Carbon Dioxide 25 Anion Gap 12 BUN 8 L Creatinine 0.87 Estim Creat Clear Calc 95.8 Estimated GFR > 60 POC Glucose 72 142 H Random Glucose Fasting Glucose 95 Calcium 8.4 Magnesium Total Bilirubin 0.8 AST 46 H ALT 20 Alkaline Phosphatase 50 Total Protein 6.4 L Albumin 3.8 Gastric Occult Blood Urine Opiates Screen Urine Fentanyl Screen Ur Barbiturates Screen Ur Phencyclidine Scrn Ur Amphetamines Screen U Benzodiazepines Scrn Urine Cocaine Screen U Marijuana (THC) Screen Ethyl Alcohol 02/06/23 02/06/23 07:54 11:20 WBC RBC Hgb Hct MCV MCH MCHC RDW Plt Count MPV Immature Gran % (Auto) Neut % (Auto) Lymph % (Auto) Wheeler % (Auto) Eos % (Auto) Baso % (Auto) Lymph # (Auto) Wheeler # (Auto) Eos # (Auto) Baso # (Auto) Abs Immat Gran (auto) Absolute Neuts (auto) Absolute Nucleated RBC Nucleated RBC % (auto) Sodium Potassium Chloride Carbon Dioxide Anion Gap BUN Creatinine Estim Creat Clear Calc Estimated GFR POC Glucose 116 H 144 H Random Glucose Fasting Glucose Calcium Magnesium Total Bilirubin AST ALT Alkaline Phosphatase Total Protein Albumin Gastric Occult Blood Urine Opiates Screen Urine Fentanyl Screen Ur Barbiturates Screen Ur Phencyclidine Scrn Ur Amphetamines Screen U Benzodiazepines Scrn Urine Cocaine Screen U Marijuana (THC) Screen Ethyl Alcohol Airway Mallampati Class: II TM Dist: >3cm Heart: rrr Lungs: cta Assessment and Plan Assessment Anesthesia Assessment: Anesthesia Plan Discussed and Chart Reviewed Final Anesthetic Review Family History of Problems with Anesthesia: No History of Problems with Anesthesia: No NPO: Yes ASA Class: III Final Preanesthetic Review: No Changes in Pt Med Stat, Meds/Allgs Chart Reviewed, Consent Obtained/Reviewed and Anes Risks/Benef Reviewed Patient Risk: Intermediate Procedure Risk: Intermediate Anesthetic Plan Anesthetic Plan: GA (coccaine and alchohol sat night , heavy alcohol use , last seizure 3 years ago, on keppra since ) and MAC: Disposition: Standard PACU
--- NOTE | 2023-02-06 12:52 | P.CONAN_ITS ---
HPI - Anesthesia Eval Consult details Narrative: [facility] Active Problems Active Problems: All Active Problems (Updated 02/05/23 @ 15:10 by Kaiden Gross DO) Type 2 diabetes mellitus (Acute) Acute upper GI bleed (Acute) Hypoglycemia (Acute) Seizure (Acute) Unresponsive episode (Acute) Tremor (Acute) Hypoglycemia (Acute) Altered mental state (Acute) Cervical radiculopathy (Acute) Past Medical History Medical History (Updated 02/15/23 @ 00:02 by Marino Ortiz) High cholesterol Hypertension Type 2 diabetes mellitus Seizure Family History Family history of problems with anesthesia: No Surgical History Surgical History (Updated 02/06/23 @ 12:58 by Cathie Noland RN) Hx of fusion of cervical spine Hx of repair of right rotator cuff History of Problems with Anesthesia: No Social History Social History Household Members: Significant Other and Family Housing: House Do you presently have visiting nurse or other home services: No Alcohol intake: current Alcohol intake frequency: 0-2 drinks per day Patient Tobacco Use Status: Never used Tobacco Second Hand Smoke Exposure: No Advance Directives Date on File: 02/05/23 service: No Current occupational status: retired Meds Allergies Allergy/AdvReac Type Severity Reaction Status Date / Time No Known Allergies Allergy Mild NKA Verified 02/06/23 12:58 Active Medications: Current Medications Acetaminophen (Acetaminophen 325 Mg Tablet) 650 mg PO Q6H PRN PRN Reason: Pain, Mild (Pain Scale 1-3) Atorvastatin Calcium (Atorvastatin Calcium 20 Mg Tablet) 20 mg PO BEDTIME [facility] Last Admin: 02/05/23 20:13 Dose: 20 mg Benzonatate (Benzonatate 100 Mg Capsule) 100 mg PO TID PRN PRN Reason: Cough Dextrose (Dextrose 50 % 25 Gm/50 Ml Syringe) 25 gm IVPUSH Q15M PRN; Protocol PRN Reason: per Hypoglycemia Standing Ord. Docusate Sodium (Docusate Sodium 100 Mg Capsule) 100 mg PO DAILY PRN PRN Reason: Constipation Folic Acid (Folic Acid 1 Mg Tablet) 1 mg PO DAILY [facility] Last Admin: 02/06/23 08:08 Dose: 1 mg Glucose (Glucose Gel 15 Gm Gel..Gram.) 15 gm PO Q15M PRN; Protocol PRN Reason: per Hypoglycemia Standing Ord. Octreotide Acetate 500 mcg/ (Sodium Chloride) 501 mls @ 25.05 mls/hr IVCONT .Q20H [facility] Last Admin: 02/06/23 11:18 Dose: 25 mcg/hr, 25.05 mls/hr Insulin Human Lispro (Insulin Lispro 100 Unit/Ml 3 Ml Vial) 0 unit SUBCUT QIDACHS [facility]; Protocol Last Admin: 02/06/23 10:59 Dose: Not Given Levetiracetam (Levetiracetam 500 Mg Tablet) 500 mg PO BID [facility] Last Admin: 02/06/23 08:08 Dose: 500 mg Lisinopril (Lisinopril 5 Mg Tablet) 5 mg PO DAILY [facility]; Protocol Last Admin: 02/06/23 08:08 Dose: 5 mg Magnesium Oxide (Magnesium Oxide 400 Mg Tablet) 400 mg PO BID [facility] Last Admin: 02/06/23 08:08 Dose: 400 mg Melatonin (Melatonin 3 Mg Tablet) 6 mg PO BEDTIME PRN PRN Reason: Insomnia Ondansetron HCl (Ondansetron Hcl 4 Mg/2 Ml Vial) 4 mg IVPUSH Q8H PRN PRN Reason: Nausea and Vomiting Pantoprazole Sodium (Pantoprazole Sodium 40 Mg/10 Ml Vial) 40 mg IVPUSH DAILY@0630 [facility] Last Admin: 02/06/23 05:46 Dose: Not Given Sodium Chloride (0.9 % Sodium Chloride Flush 3 Ml Syringe) 3 ml IVFLUSH QSHIFT [facility] Last Admin: 02/06/23 08:08 Dose: 3 ml Home Medications Medication Instructions Recorded Confirmed Last Taken Type atorvastatin 20 mg tablet 20 mg PO BEDTIME 08/04/20 02/05/23 06/03/21 History lisinopril 5 mg tablet 5 mg PO DAILY 08/04/20 02/05/23 06/03/21 History metformin 850 mg tablet 850 mg PO TID 08/04/20 02/05/23 06/03/21 History famotidine 20 mg tablet 20 mg PO BID PRN Heartburn 02/05/23 02/05/23 Unknown History folic acid 800 mcg tablet 0.8 mg PO DAILY 02/05/23 02/05/23 Unknown History insulin glargine 100 unit/mL (3 60 unit subcut BEDTIME 02/05/23 02/05/23 Unknown History mL) subcutaneous pen levetiracetam 500 mg tablet 500 mg PO BID 02/05/23 02/05/23 Unknown History magnesium oxide 400 mg (241.3 mg 400 mg PO BID 02/05/23 02/05/23 Unknown History magnesium) tablet omega-3 fatty acids 500 mg capsule 500 mg PO DAILY 02/05/23 02/05/23 Unknown History Exam Height,Weight and Vital Signs: Height 5 ft 8 in Weight 85 kg Last Vital Signs Temp 97.3 F 02/06/23 11:18 Pulse 62 02/06/23 11:18 Resp 20 02/06/23 11:18 BP 128/75 02/06/23 11:18 Pulse Ox 96 02/06/23 11:18 O2 Del Method Room Air 02/06/23 11:18 Pertinent Lab Results Pertinent Lab Results: Laboratory Tests 02/04/23 02/04/23 02/04/23 16:24 17:02 17:07 WBC 17.1 H RBC 5.13 Hgb 15.5 D Hct 46.8 D MCV 91.2 MCH 30.2 MCHC 33.1 RDW 12.6 Plt Count 291 D MPV 10.4 Immature Gran % (Auto) 1.3 H Neut % (Auto) 89.6 H Lymph % (Auto) 4.6 L [place] % (Auto) 4.2 Eos % (Auto) 0.1 Baso % (Auto) 0.2 Lymph # (Auto) 0.8 L [place] # (Auto) 0.7 Eos # (Auto) 0.0 Baso # (Auto) 0.0 Abs Immat Gran (auto) 0.22 H Absolute Neuts (auto) 15.4 H Absolute Nucleated RBC 0.000 Nucleated RBC % (auto) 0.0 Sodium 142 Potassium 4.7 Chloride 106 Carbon Dioxide 9 L* D Anion Gap 32 H BUN 9 Creatinine 0.99 Estim Creat Clear Calc 84.2 Estimated GFR > 60 POC Glucose 92 74 Random Glucose 76 Fasting Glucose Calcium 8.6 D Magnesium Total Bilirubin 0.4 AST 53 H ALT 22 Alkaline Phosphatase 59 Total Protein 7.9 Albumin 4.7 Gastric Occult Blood Urine Opiates Screen Urine Fentanyl Screen Ur Barbiturates Screen Ur Phencyclidine Scrn Ur Amphetamines Screen U Benzodiazepines Scrn Urine Cocaine Screen U Marijuana (THC) Screen Ethyl Alcohol 59 02/04/23 02/04/23 02/04/23 17:40 18:18 18:35 WBC RBC Hgb Hct MCV MCH MCHC RDW Plt Count MPV Immature Gran % (Auto) Neut % (Auto) Lymph % (Auto) [place] % (Auto) Eos % (Auto) Baso % (Auto) Lymph # (Auto) [place] # (Auto) Eos # (Auto) Baso # (Auto) Abs Immat Gran (auto) Absolute Neuts (auto) Absolute Nucleated RBC Nucleated RBC % (auto) Sodium Potassium Chloride Carbon Dioxide Anion Gap BUN Creatinine Estim Creat Clear Calc Estimated GFR POC Glucose 60 59 L* Random Glucose Fasting Glucose Calcium Magnesium Total Bilirubin AST ALT Alkaline Phosphatase Total Protein Albumin Gastric Occult Blood POSITIVE Urine Opiates Screen Urine Fentanyl Screen Ur Barbiturates Screen Ur Phencyclidine Scrn Ur Amphetamines Screen U Benzodiazepines Scrn Urine Cocaine Screen U Marijuana (THC) Screen Ethyl Alcohol 02/04/23 02/04/23 02/04/23 19:04 19:59 20:21 WBC RBC Hgb Hct MCV MCH MCHC RDW Plt Count MPV Immature Gran % (Auto) Neut % (Auto) Lymph % (Auto) [place] % (Auto) Eos % (Auto) Baso % (Auto) Lymph # (Auto) [place] # (Auto) Eos # (Auto) Baso # (Auto) Abs Immat Gran (auto) Absolute Neuts (auto) Absolute Nucleated RBC Nucleated RBC % (auto) Sodium Potassium Chloride Carbon Dioxide Anion Gap BUN Creatinine Estim Creat Clear Calc Estimated GFR POC Glucose 79 78 97 Random Glucose Fasting Glucose Calcium Magnesium Total Bilirubin AST ALT Alkaline Phosphatase Total Protein Albumin Gastric Occult Blood Urine Opiates Screen Urine Fentanyl Screen Ur Barbiturates Screen Ur Phencyclidine Scrn Ur Amphetamines Screen U Benzodiazepines Scrn Urine Cocaine Screen U Marijuana (THC) Screen Ethyl Alcohol 02/04/23 02/04/23 02/04/23 20:42 21:49 23:03 WBC RBC Hgb Hct MCV MCH MCHC RDW Plt Count MPV Immature Gran % (Auto) Neut % (Auto) Lymph % (Auto) [place] % (Auto) Eos % (Auto) Baso % (Auto) Lymph # (Auto) [place] # (Auto) Eos # (Auto) Baso # (Auto) Abs Immat Gran (auto) Absolute Neuts (auto) Absolute Nucleated RBC Nucleated RBC % (auto) Sodium 139 Potassium 6.0 H* D 5.7 H Chloride 107 Carbon Dioxide 11 L Anion Gap 27 H BUN 11 Creatinine 0.92 Estim Creat Clear Calc 90.6 Estimated GFR > 60 POC Glucose 117 H Random Glucose 102 Fasting Glucose Calcium 8.7 Magnesium Total Bilirubin AST ALT Alkaline Phosphatase Total Protein Albumin Gastric Occult Blood Urine Opiates Screen Urine Fentanyl Screen Ur Barbiturates Screen Ur Phencyclidine Scrn Ur Amphetamines Screen U Benzodiazepines Scrn Urine Cocaine Screen U Marijuana (THC) Screen Ethyl Alcohol 02/05/23 02/05/23 02/05/23 02:44 06:03 07:13 WBC 11.3 H RBC 4.42 L Hgb 13.3 L Hct 38.4 L MCV 86.9 MCH 30.1 MCHC 34.6 RDW 12.4 Plt Count 207 D MPV 10.6 Immature Gran % (Auto) 0.5 H Neut % (Auto) 78.4 H Lymph % (Auto) 10.0 L [place] % (Auto) 10.8 Eos % (Auto) 0.1 Baso % (Auto) 0.2 Lymph # (Auto) 1.1 L [place] # (Auto) 1.2 Eos # (Auto) 0.0 Baso # (Auto) 0.0 Abs Immat Gran (auto) 0.06 H Absolute Neuts (auto) 8.8 H Absolute Nucleated RBC 0.000 Nucleated RBC % (auto) 0.0 Sodium 136 Potassium 4.1 D Chloride 107 Carbon Dioxide 19 L Anion Gap 14 BUN 13 Creatinine 1.00 Estim Creat Clear Calc 83.3 Estimated GFR > 60 POC Glucose 134 H 134 H Random Glucose 146 H Fasting Glucose Calcium 8.0 L D Magnesium 1.7 Total Bilirubin AST ALT Alkaline Phosphatase Total Protein Albumin Gastric Occult Blood Urine Opiates Screen Urine Fentanyl Screen Ur Barbiturates Screen Ur Phencyclidine Scrn Ur Amphetamines Screen U Benzodiazepines Scrn Urine Cocaine Screen U Marijuana (THC) Screen Ethyl Alcohol 02/05/23 02/05/23 02/05/23 09:47 12:38 14:33 WBC RBC Hgb Hct MCV MCH MCHC RDW Plt Count MPV Immature Gran % (Auto) Neut % (Auto) Lymph % (Auto) [place] % (Auto) Eos % (Auto) Baso % (Auto) Lymph # (Auto) [place] # (Auto) Eos # (Auto) Baso # (Auto) Abs Immat Gran (auto) Absolute Neuts (auto) Absolute Nucleated RBC Nucleated RBC % (auto) Sodium Potassium Chloride Carbon Dioxide Anion Gap BUN Creatinine Estim Creat Clear Calc Estimated GFR POC Glucose 116 H 81 Random Glucose Fasting Glucose Calcium Magnesium Total Bilirubin AST ALT Alkaline Phosphatase Total Protein Albumin Gastric Occult Blood Urine Opiates Screen Not Detected Urine Fentanyl Screen Not Detected Ur Barbiturates Screen Not Detected Ur Phencyclidine Scrn Not Detected Ur Amphetamines Screen Not Detected U Benzodiazepines Scrn Not Detected Urine Cocaine Screen POSITIVE H U Marijuana (THC) Screen Not Detected Ethyl Alcohol 02/05/23 02/05/23 02/06/23 15:54 20:38 05:34 WBC 8.5 RBC 4.49 L Hgb 13.7 L Hct 39.5 L MCV 88.0 MCH 30.5 MCHC 34.7 RDW 12.3 Plt Count 180 MPV 10.8 Immature Gran % (Auto) 0.2 Neut % (Auto) 74.6 H Lymph % (Auto) 14.6 L [place] % (Auto) 8.4 Eos % (Auto) 2.0 Baso % (Auto) 0.2 Lymph # (Auto) 1.3 [place] # (Auto) 0.7 Eos # (Auto) 0.2 Baso # (Auto) 0.0 Abs Immat Gran (auto) 0.02 Absolute Neuts (auto) 6.4 Absolute Nucleated RBC 0.000 Nucleated RBC % (auto) 0.0 Sodium 143 Potassium 3.8 Chloride 110 H Carbon Dioxide 25 Anion Gap 12 BUN 8 L Creatinine 0.87 Estim Creat Clear Calc 95.8 Estimated GFR > 60 POC Glucose 72 142 H Random Glucose Fasting Glucose 95 Calcium 8.4 Magnesium Total Bilirubin 0.8 AST 46 H ALT 20 Alkaline Phosphatase 50 Total Protein 6.4 L Albumin 3.8 Gastric Occult Blood Urine Opiates Screen Urine Fentanyl Screen Ur Barbiturates Screen Ur Phencyclidine Scrn Ur Amphetamines Screen U Benzodiazepines Scrn Urine Cocaine Screen U Marijuana (THC) Screen Ethyl Alcohol 02/06/23 02/06/23 07:54 11:20 WBC RBC Hgb Hct MCV MCH MCHC RDW Plt Count MPV Immature Gran % (Auto) Neut % (Auto) Lymph % (Auto) [place] % (Auto) Eos % (Auto) Baso % (Auto) Lymph # (Auto) [place] # (Auto) Eos # (Auto) Baso # (Auto) Abs Immat Gran (auto) Absolute Neuts (auto) Absolute Nucleated RBC Nucleated RBC % (auto) Sodium Potassium Chloride Carbon Dioxide Anion Gap BUN Creatinine Estim Creat Clear Calc Estimated GFR POC Glucose 116 H 144 H Random Glucose Fasting Glucose Calcium Magnesium Total Bilirubin AST ALT Alkaline Phosphatase Total Protein Albumin Gastric Occult Blood Urine Opiates Screen Urine Fentanyl Screen Ur Barbiturates Screen Ur Phencyclidine Scrn Ur Amphetamines Screen U Benzodiazepines Scrn Urine Cocaine Screen U Marijuana (THC) Screen Ethyl Alcohol Airway Mallampati Class: II TM Dist: >3cm Neck ROM: Full Heart: ok Lungs: ok Assessment and Plan Assessment Anesthesia Assessment: Anesthesia Plan Discussed Final Anesthetic Review Family History of Problems with Anesthesia: No History of Problems with Anesthesia: No NPO: Yes ASA Class: III Final Preanesthetic Review: No Changes in Pt Med Stat, Meds/Allgs Chart Reviewed, Consent Obtained/Reviewed and Anes Risks/Benef Reviewed Patient Risk: Intermediate Procedure Risk: Intermediate Anesthetic Plan Anesthetic Plan: TIVA Disposition: Standard PACU
[2023-02-06] MEDS: Lactated Ringers 1,000 ML 50 ML IVCONT (13:09)
--- NOTE | 2023-02-06 13:50 | PM.OP ---
Brief Operative Note Date of Service: 02/06/23 Pre-op diagnosis: gi bleed Post-op diagnosis: same Procedure: egd Surgeon: Tamir Copeland MD Anesthesia: MAC Was an Environmental Science Technician used for this Procedure?: No Estimated blood loss (mL): 0 Pathology: none sent Condition: stable Disposition: PACU
--- NOTE | 2023-02-06 13:51 | PM.EVENT ---
Event Note Date of Service: 02/06/23 Event Note: EGD erosive esophagitis mild gastritis and duodenitis no bleeding REC: omeprazole 40/d no nsaids avoid alcohol diet advanced discharge when stable repeat egd in 3 mos, also due for colon. Time Spent With Patient Time: Total time managing care of this patient today ____ minutes.
--- NOTE | 2023-02-06 15:26 | P.PNIM_ITS ---
Subjective Subjective Date of Service: 02/06/23 Interval History: No acute issues overnight. No further bleeding. EGD done this afternoon results noted Review of Systems Denies chest pain Denies shortness of breath Denies nausea vomiting diarrhea Denies fever chills Physical Exam 2 Vital Signs: Vital Signs: Last Vital Signs Temp 97.6 F 02/06/23 14:05 Pulse 59 02/06/23 14:05 Resp 18 02/06/23 14:05 BP 114/73 02/06/23 14:05 Pulse Ox 98 02/06/23 14:05 O2 Del Method Nasal Cannula 02/06/23 14:05 O2 Flow Rate 2 02/06/23 14:05 BMI result Body Mass Index 28.5 Const: Other: Awake alert oriented x3 no acute distress Resp: Other: Clear to auscultation bilaterally no rales rhonchi or wheezes Cardio: Other: No S4; positive S1-S2; no S3 murmurs rubs or gallops GI: Other: Soft nontender nondistended normoactive bowel sounds Neuro: Other: Cranial nerves 2-12 grossly intact as tested. Motor is 5/5 all extremities. Sensation is intact. Cognition appropriate Extrem: Other: No edema bilaterally Objective Data Active Medications Acetaminophen (Acetaminophen 325 Mg Tablet) 650 mg PO Q6H PRN PRN Reason: Pain, Mild (Pain Scale 1-3) Atorvastatin Calcium (Atorvastatin Calcium 20 Mg Tablet) 20 mg PO BEDTIME [facility] Last Admin: 02/05/23 20:13 Dose: 20 mg Documented By: TERRY Benzonatate (Benzonatate 100 Mg Capsule) 100 mg PO TID PRN PRN Reason: Cough Dextrose (Dextrose 50 % 25 Gm/50 Ml Syringe) 25 gm IVPUSH Q15M PRN; Protocol PRN Reason: per Hypoglycemia Standing Ord. Docusate Sodium (Docusate Sodium 100 Mg Capsule) 100 mg PO DAILY PRN PRN Reason: Constipation Folic Acid (Folic Acid 1 Mg Tablet) 1 mg PO DAILY [facility] Last Admin: 02/06/23 08:08 Dose: 1 mg Documented By: RAH Glucose (Glucose Gel 15 Gm Gel..Gram.) 15 gm PO Q15M PRN; Protocol PRN Reason: per Hypoglycemia Standing Ord. Lactated Ringer's (Lr) 1,000 mls @ 50 mls/hr IVCONT .Q20H [facility] Last Admin: 02/06/23 13:09 Dose: 50 mls/hr Documented By: ANUSHA Insulin Human Lispro (Insulin Lispro 100 Unit/Ml 3 Ml Vial) 0 unit SUBCUT QIDACHS [facility]; Protocol Last Admin: 02/06/23 10:59 Dose: Not Given Documented By: RA[facility] Non-Admin Reason: NPO Levetiracetam (Levetiracetam 500 Mg Tablet) 500 mg PO BID [facility] Last Admin: 02/06/23 08:08 Dose: 500 mg Documented By: RAH Lisinopril (Lisinopril 5 Mg Tablet) 5 mg PO DAILY [facility]; Protocol Last Admin: 02/06/23 08:08 Dose: 5 mg Documented By: RAH Magnesium Oxide (Magnesium Oxide 400 Mg Tablet) 400 mg PO BID [facility] Last Admin: 02/06/23 08:08 Dose: 400 mg Documented By: RAH Melatonin (Melatonin 3 Mg Tablet) 6 mg PO BEDTIME PRN PRN Reason: Insomnia Omeprazole (Omeprazole 40 Mg Capsule.Dr) 40 mg PO DAILY@0630 [facility] Ondansetron HCl (Ondansetron Hcl 4 Mg/2 Ml Vial) 4 mg IVPUSH Q8H PRN PRN Reason: Nausea and Vomiting Sodium Chloride (0.9 % Sodium Chloride Flush 3 Ml Syringe) 3 ml IVFLUSH QSHIFT [facility] Last Admin: 02/06/23 14:49 Dose: 3 ml Documented By: RAH Labs 02/06/23 05:34 02/06/23 05:34 Labs: Laboratory Results - last 24 hr 02/05/23 02/05/23 02/06/23 15:54 20:38 05:34 MCV 88.0 MCH 30.5 MCHC 34.7 RDW 12.3 Plt Count 180 MPV 10.8 Immature Gran % (Auto) 0.2 Neut % (Auto) 74.6 H Lymph % (Auto) 14.6 L [place] % (Auto) 8.4 Eos % (Auto) 2.0 Baso % (Auto) 0.2 Lymph # (Auto) 1.3 [place] # (Auto) 0.7 Eos # (Auto) 0.2 Baso # (Auto) 0.0 Abs Immat Gran (auto) 0.02 Absolute Neuts (auto) 6.4 Absolute Nucleated RBC 0.000 Nucleated RBC % (auto) 0.0 Anion Gap 12 Estim Creat Clear Calc 95.8 Estimated GFR > 60 POC Glucose 72 142 H Fasting Glucose 95 Calcium 8.4 Total Bilirubin 0.8 AST 46 H ALT 20 Alkaline Phosphatase 50 Total Protein 6.4 L Albumin 3.8 02/06/23 02/06/23 07:54 11:20 MCV MCH MCHC RDW Plt Count MPV Immature Gran % (Auto) Neut % (Auto) Lymph % (Auto) [place] % (Auto) Eos % (Auto) Baso % (Auto) Lymph # (Auto) [place] # (Auto) Eos # (Auto) Baso # (Auto) Abs Immat Gran (auto) Absolute Neuts (auto) Absolute Nucleated RBC Nucleated RBC % (auto) Anion Gap Estim Creat Clear Calc Estimated GFR POC Glucose 116 H 144 H Fasting Glucose Calcium Total Bilirubin AST ALT Alkaline Phosphatase Total Protein Albumin Assessment and Plan (1) Acute upper GI bleed: Status: Acute Plan Pt is a 62-year-old male with a PMH significant for insulin-dependent diabetes type 2, HTN, HLD, GERD, and hx of DKA?who presents to the ED for evaluation of hypoglycemia after being found unresponsive by his girlfriend this afternoon. Pt will be admitted to the hospital under observation for treatment further evaluation of unresponsiveness in the setting of hypoglycemia, and coffee-ground emesis in the setting of likely alcohol gastritis. 1.Upper GI bleed -on IV PPI/octreotide.. . EGD results noted -DC octreotide; start PPI b.i.d. -advanced diet tonight; if stable in a.m. will DC -follow CBC in a.m. 2..Hyperkalemia -resolved -follow renals/divalents 3.HTN -acceptable control on current therapies -adjust as indicated 5. Polysubstance abuse -addiction Medicine consult 5.. Seizure disorder -none since admit -continue outpatient therapies Full Code Pneumatic boots Requires ongoing inpatient hospitalization secondary to the need for IV octreotide and IV PPI secondary to upper GI bleed. Given questionable alcohol history, will need specialist consult to ascertain need for EGD. Quality Stroke Does the patient have a stroke diagnosis?: No VTE Prior VTE?: No VTE Risk Level:: Medical - moderate - high VTE Device Contraindication: N/A - Device Ordered VTE Drug Contraindication: Treatment Not Indicated
--- NOTE | 2023-02-06 16:09 | P.EN_ITS ---
Event Note Date of Service: 02/06/23 Event Note: Addiction consult placed Patient seen by application penetration tester (see notes from 02/06) declined resources no follow up indicated at this time Time Spent With Patient Time: Total time managing care of this patient today ____ minutes.
[2023-02-06 16:25] LABS: Glucose, Whole Blood 168 mg/dL (60-115)
[2023-02-06] MEDS: Insulin Lispro 100 UNIT/ML 3 ML VIAL SUBCUT ×2 (17:30→21:16)
--- NOTE | 2023-02-06 19:23 | OP_ITS ---
DATE OF SERVICE: 02/06/2023 SURGEON: Tamir Copeland MD INDICATIONS: Upper GI bleeding. PREOPERATIVE DIAGNOSIS: POSTOPERATIVE DIAGNOSIS: PROCEDURE PERFORMED: Upper endoscopy. ESTIMATED BLOOD LOSS: COMPLICATIONS: ANESTHESIA: Monitored anesthesia care. ASSISTANTS: SPECIMENS: DESCRIPTION OF PROCEDURE: A history and physical was performed. The risks and benefits of the procedure were explained to the patient. Informed consent was obtained. The patient was placed in the left lateral decubitus position. The Olympus video gastroscope was introduced into the esophagus, stomach, and duodenum. Examination was performed. The scope was removed. He tolerated the procedure well and was returned to the recovery area in stable condition. FINDINGS: Esophagus: There was erosive esophagitis involving the distal 2/3 of the esophagus without any active bleeding. No varices were identified. Stomach: The stomach showed no evidence of masses, ulcers, or polyps. There was focal gastritis involving the fundus. Duodenum: There was mild duodenitis involving the bulb. IMPRESSION: 1. Erosive esophagitis. 2. Gastritis. 3. Duodenitis. RECOMMENDATION: 1. Follow up in the office in 4 to 8 weeks. 2. Proton pump inhibitor such as omeprazole 40 mg daily. MD ANKIT Aragon/PITERL / [id number]
[2023-02-06 20:09] LABS: Glucose, Whole Blood 294 mg/dL (60-115)
[2023-02-06] MEDS: Atorvastatin Calcium 20 MG TABLET PO (21:16)
[2023-02-06] MEDS: Melatonin 3 MG TABLET 6 MG PO (21:16)
[2023-02-07 03:58] VITALS: BP 108/52; PULSE 58; RESP 20; TEMP 36.8; O2SAT 95
[2023-02-07] MEDS: Omeprazole 40 MG CAPSULE.DR PO (06:34)
[2023-02-07 06:48] LABS: MANUAL DIFF FLAG NO
[2023-02-07 06:56] LABS: Basophils Percent Auto 0.6 % (0-2); Eosinophils Absolute Auto 0.3 X10*3/uL (0.0-0.4); Eosinophils Percent Auto 4.2 % (0-4); Hemoglobin 13.1 g/dl (14.0-18.0); Imm Gran Abs Auto 0.03 X10*3/uL (0.00-0.03); Imm Gran Pct Auto 0.4 % (0.0-0.4); Lymphocytes Absolute Auto 1.3 X10*3/uL (1.2-4.9); Lymphocytes Percent Auto 19.2 % (20-40); Mean Corpuscular HGB Conc 34.5 g/dl (31.0-36.0); Mean Corpuscular Hemoglobin 30.3 pg (27.0-33.0); Mean Corpuscular Volume 87.8 fL (80.0-98.0); Monocytes Absolute Auto 0.6 X10*3/uL (0.1-1.2); Monocytes Percent Auto 8.7 % (2-11); Neutrophils Absolute Auto 4.7 x10*3/uL (2.0-8.3); Neutrophils Percent Auto 66.9 % (45-73); Platelet Count 176 X10*3/uL (160-400); Red Blood Count 4.33 X10*6/uL (4.60-5.80); Red Cell Distribution Width 12.2 % (11.0-16.0)
[2023-02-07 07:02] LABS: Glucose, Whole Blood 164 mg/dL (60-115)
[2023-02-07 07:05] VITALS: BP 140/78; PULSE 54; RESP 20; TEMP 36.9; O2SAT 96
[2023-02-07 07:12] LABS: Alanine Aminotransferase 20 U/L (0-40); Albumin Level 3.7 g/dL (3.5-5.0); Alkaline Phosphatase 49 U/L (39-117); Anion Gap 14 (12-20); Aspartate Amino Transferase 30 U/L (5-37); Blood Urea Nitrogen 13 mg/dL (9-16); Calcium 8.5 mg/dL (8.4-10.2); Carbon Dioxide 21 mmol/L (22-29); Chloride 110 mmol/L (96-108); Creatinine Clr Calc Pharmacy 92.6; Estimated Glomerular Filt Rate > 60; Glucose Fasting 186 mg/dL (60-99); Sodium 141 mmol/L (135-145); Total Protein 6.1 g/dL (6.5-8.0)
[2023-02-07] MEDS: lisinopriL 5 MG TABLET PO (08:50)
[2023-02-07] MEDS: 0.9 % Sodium Chloride Flush 3 ML SYRINGE IVFLUSH (08:50)
[2023-02-07] MEDS: Insulin Lispro 100 UNIT/ML 3 ML VIAL SUBCUT (08:50)
[2023-02-07] MEDS: Magnesium Oxide 400 MG TABLET PO (08:50)
[2023-02-07] MEDS: levETIRAcetam 500 MG TABLET PO (08:50)
[2023-02-07] MEDS: Folic Acid 1 MG TABLET PO (08:50)
--- NOTE | 2023-02-07 09:09 | MHC.CM.PN ---
Patient has been medically cleared for dc to home today, self care.
--- NOTE | 2023-02-07 09:15 | PM.DS ---
DS: Providers Provider Date of Service: 02/07/23 Date of admission: 02/05/23 10:28 Date of discharge: 02/07/23 Primary care physician: Stephanie Snell MD Consults: 02/05/23 11:57 Consult to Gastroenterology Routine Consulting Provider: Tamir Copeland Reason for consultation: GIB Has provider been notified: No 02/06/23 07:25 Addiction Medicine Routine Consulting Provider: Addiction Covering Reason for consultation: PSA Has provider been notified: No DS: Diagnosis Discharge Diagnosis (1) Acute upper GI bleed: Status: Acute (2) Hypoglycemia: Status: Acute (3) Unresponsive episode: Status: Acute (4) Type 2 diabetes mellitus: Status: Acute (5) Seizure: Status: Acute DS: Summary Hospital Course Hospital Course: 62-year-old male with a PMH significant for insulin-dependent diabetes type 2, HTN, HLD, GERD, and hx of DKA?who presents to the ED for evaluation of hypoglycemia after being found unresponsive by his girlfriend this afternoon. 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 Patient states that he then went out afterwards and continued drinking until possibly 2-3 a.m.. Patient is unclear exactly what happened last night, though he does not think he 8 anything during the day or at night. He is also unsure of whether he gave himself any insulin last night, or possibly even gave himself extra doses of insulin last night. Patient's girlfriend found him unresponsive on the bed at 16:00. EMS was called who found patient's blood glucose was 20. Received 200 mL of D10 en route and blood sugar was 76 when he arrived at the ED. patient was given food and juice, but blood sugar continued to drop to as low as 59. He was then given dextrose. While in the ED patient had 1 episode of coffee-ground emesis which totaled approximately 1L. Patient was then given IV Protonix, octreotide, and prochlorperazine. Patient states he feels little lightheaded and dizzy, and has some abdominal discomfort. Currently denies nausea. No chest pain/pressure, palpitations. Denies fever, chills. States he has had a history GI bleed before, though he can offer no specifics and is not sure exactly when it is, thinking it may have been ?a couple years ago?. Reports dark colored stool for maybe the past few weeks to a month. Denies increasing fatigue or lightheadedness and dizziness prior to today. Patient denies drinking daily, states he drinks at most once a week on Saturdays. Of note, patient was admitted to the hospital on 06/04/2021 for a similar presentation of unresponsiveness in the setting of hypoglycemia after a night of drinking and not eating. In the ED pt has slightly low temperature of 95.6 degrees and was slightly hypertensive up to 166/77, otherwise vitals WNL. Labs were significant for leukocytosis of 17.1, bicarb of 9, anion gap 32, AST 53, and POC as low as 59. Initial potassium 4.7 but repeat elevated at 6.0. Gastric contents positive for occult blood. Ethyl alcohol level 59. Pt was treated with ondansetron, prochlorperazine, Protonix, octreotide, and D5 normal saline. Pt will be admitted to the hospital under observation for treatment further evaluation of unresponsiveness in the setting of hypoglycemia, and coffee-ground emesis in the setting of likely alcohol gastritis. Hospital Course Admitted to telemetry on octreotide PPI and kept NPO. Seen in consultation by GI; underwent EGD on 02/06/23 which demonstrated erosive esophagitis to the distal 2/3 of the esophagus without active bleeding. Also demonstrated gastritis/duodenitis. Ultimately octreotide was able to be DC id and patient will be discharged home as per GI recommendations on omeprazole 40 daily will follow-up in 6 weeks for repeat scope. He was seen in consultation by addiction Medicine however refused all services. At this point he is medically acceptable for discharge Time Attestation Discharge coordination time: Greater than 30 minutes Quality: Safe Use of Opioids Does Pt have an Active Cancer Diagnosis on the Problem List?: No Quality: Stroke Does the patient have a stroke diagnosis?: No Physical Exam Vital Signs: Vital Signs: Last Vital Signs Temp 98.4 F 02/07/23 07:05 Pulse 54 02/07/23 07:05 Resp 20 02/07/23 07:05 BP 140/78 H 02/07/23 07:05 Pulse Ox 96 02/07/23 07:05 O2 Del Method Room Air 02/07/23 07:05 O2 Flow Rate 2 02/06/23 14:05 BMI result Body Mass Index 28.5 Const: Other: Awake alert oriented x3 no acute distress Resp: Other: Clear to auscultation bilaterally no rales rhonchi or wheezes Cardio: Other: No S4; positive S1-S2; no S3 murmurs rubs or gallops GI: Other: Soft nontender nondistended normoactive bowel sounds Neuro: Other: Cranial nerves 2-12 grossly intact as tested. Motor is 5/5 all extremities. Sensation is intact. Cognition appropriate Extrem: Other: No edema bilaterally DS: Data Data Completed and Pending Labs on day of discharge: Laboratory Results - last 24 hr 02/06/23 02/06/23 02/06/23 11:20 16:20 19:56 WBC RBC Hgb Hct MCV MCH MCHC RDW Plt Count MPV Immature Gran % (Auto) Neut % (Auto) Lymph % (Auto) Garfield % (Auto) Eos % (Auto) Baso % (Auto) Lymph # (Auto) Garfield # (Auto) Eos # (Auto) Baso # (Auto) Abs Immat Gran (auto) Absolute Neuts (auto) Absolute Nucleated RBC Nucleated RBC % (auto) Sodium Potassium Chloride Carbon Dioxide Anion Gap BUN Creatinine Estim Creat Clear Calc Estimated GFR POC Glucose 144 H 168 H 294 H Fasting Glucose Calcium Total Bilirubin AST ALT Alkaline Phosphatase Total Protein Albumin 02/07/23 02/07/23 06:23 06:58 WBC 7.0 RBC 4.33 L Hgb 13.1 L Hct 38.0 L MCV 87.8 MCH 30.3 MCHC 34.5 RDW 12.2 Plt Count 176 MPV 11.0 Immature Gran % (Auto) 0.4 Neut % (Auto) 66.9 Lymph % (Auto) 19.2 L Garfield % (Auto) 8.7 Eos % (Auto) 4.2 H Baso % (Auto) 0.6 Lymph # (Auto) 1.3 Garfield # (Auto) 0.6 Eos # (Auto) 0.3 Baso # (Auto) 0.0 Abs Immat Gran (auto) 0.03 Absolute Neuts (auto) 4.7 Absolute Nucleated RBC 0.000 Nucleated RBC % (auto) 0.0 Sodium 141 Potassium 4.0 Chloride 110 H Carbon Dioxide 21 L Anion Gap 14 BUN 13 Creatinine 0.90 Estim Creat Clear Calc 92.6 Estimated GFR > 60 POC Glucose 164 H Fasting Glucose 186 H Calcium 8.5 Total Bilirubin 1.0 AST 30 ALT 20 Alkaline Phosphatase 49 Total Protein 6.1 L Albumin 3.7 Discharge Plan Discharge Anticipated Discharge Date/Time: 02/07/23 09:01 Patient Disposition: Home, Self-Care Discharge Diagnosis: Hypoglycemic episode Referrals: Stephanie Snell MD [Primary Care Provider] - 1 Week Discharge Medications: New omeprazole 40 mg Capsule,Delayed Release(Dr/Ec) 40 mg PO DAILY@0630 Qty: 90 0RF Continued insulin lispro protamin-lispro 100 unit/mL (75-25) insulin pen 25 unit subcut QAM Qty: 0 0RF levetiracetam 500 mg tablet 500 mg PO BID famotidine 20 mg tablet 20 mg PO BID PRN (Reason: Heartburn) magnesium oxide 400 mg (241.3 mg magnesium) tablet 400 mg PO BID folic acid 800 mcg tablet 0.8 mg PO DAILY omega-3 fatty acids 500 mg Capsule 500 mg PO DAILY insulin glargine 100 unit/mL (3 mL) insulin pen 60 unit subcut BEDTIME lisinopril 5 mg tablet 5 mg PO DAILY metformin 850 mg tablet 850 mg PO TID atorvastatin 20 mg tablet 20 mg PO BEDTIME Discharge Orders: Discharge Order (Routine); Ordered 02/07/23 Ordered By: Kaiden Gross Diet: Advance to usual diet Activity on Discharge: As tolerated Stand Alone Forms: Patient Portal Discharge page Care Plan Goals: Absolutely no alcohol. At Protonix 40 mg daily to your daily regimen Health Concerns: Follow-up with Dr. Copeland in office. His office will contact you with an appointment Plan of Treatment: Resume all medicines as taken before hospital Assessment: See discharge summary
--- NOTE | 2023-02-07 10:38 | HO.POSTANES ---
Post Anesthesia Evaluation Post Anesthesia Evaluation Date of Service: 02/07/23 Vital Signs: Vital Signs Temp Pulse Resp BP Pulse Ox O2 Del Method 02/07/23 07:05 98.4 F 54 20 140/78 H 96 Room Air 02/07/23 03:58 98.2 F 58 20 108/52 L 95 Room Air 02/06/23 23:19 97.6 F 55 20 113/59 L 93 Room Air Anesthesia: Monitored Mental Status: Awake Pain Control: Satisfactory Nausea/Vomiting: None Hydration: Adequate Anesthesia-Related Issues: No Anes. Related Issues
== END 2023-02-07 09:48 | disposition home or self-care (01) | DRG 420 ==
LOC: HO.ED 20:15 → HO.EDOVER 21:53 → HO.IMC 02-05 11:34
PROVIDERS: Internal Medicine; Internal Medicine Gastroenterology; Admitting Provider Student in an Organized Health Care Education/Training Program; Emergency Provider Emergency Medicine; PCP Internal Medicine; Visit Provider Hospitalist
PROC: 0DJ08ZZ Inspection of Upper Intestinal Tract, Via Natural or Artificial Opening Endoscopic (ICD-10-PCS; principal; 2023-02-06 14:10)
DX: E11.641 Type 2 diabetes mellitus with hypoglycemia with coma (principal); K22.11 Ulcer of esophagus with bleeding; K29.21 Alcoholic gastritis with bleeding; G40.909 Epilepsy, unspecified, not intractable, without status epilepticus; F10.90 Alcohol use, unspecified, uncomplicated; F19.10 Other psychoactive substance abuse, uncomplicated; E87.5 Hyperkalemia; K29.81 Duodenitis with bleeding; Y90.2 Blood alcohol level of 40-59 mg/100 ml; Z79.4 Long term (current) use of insulin; Z79.84 Long term (current) use of oral hypoglycemic drugs; Z79.899 Other long term (current) drug therapy
CPT/HCPCS: 36415; 80048; 80053; 80307; 82271; 82947; 83735; 84132; 85025; 93005; 99285; C9113; J0737; J2354; J2405; J2704; J7120

== ENCOUNTER → 2023-02-04 21:31 | Outpatient (BNV) | payer OTHER, SELFPAY | PROVIDERS: Admitting Provider Student in an Organized Health Care Education/Training Program; Emergency Provider Emergency Medicine; PCP Internal Medicine; Visit Provider Student in an Organized Health Care Education/Training Program | DX: K92.2 Gastrointestinal hemorrhage, unspecified (principal); E11.649 Type 2 diabetes mellitus with hypoglycemia without coma; R41.89 Other symptoms and signs involving cognitive functions and awareness; R56.9 Unspecified convulsions | CPT/HCPCS: 99222; 99233; 99239 ==

== ENCOUNTER → 2023-02-04 21:48 | Outpatient (BNV) | payer OTHER, SELFPAY | PROVIDERS: Admitting Provider Student in an Organized Health Care Education/Training Program; Emergency Provider Emergency Medicine; PCP Internal Medicine; Visit Provider Internal Medicine Cardiovascular Disease | DX: E16.2 Hypoglycemia, unspecified (principal) | CPT/HCPCS: 93010 ==

== ENCOUNTER 2023-05-22 07:55 | Day surgery (SDC) | payer OTHER, SELFPAY ==
[2023-05-18 13:26] VITALS: BMI 30.1
--- NOTE | 2023-05-21 08:33 | P.CONAN_ITS ---
Documented by User: Tiffanie Carlson NP 05/21/23 08:36 HPI - Anesthesia Eval Consult details Narrative: 63yo M for Upper Endoscopy and Colonoscopy +Utox previously PMFSH Active Problems Active Problems: All Active Problems (Updated 02/15/23 @ 00:02 by Marino Ortiz) Tremor (Acute) Altered mental state (Acute) Hypoglycemia (Acute) Cervical radiculopathy (Acute) Type 2 diabetes mellitus (Acute) Past Medical History Medical History High cholesterol Hypertension Type 2 diabetes mellitus Seizure Family History Family history of problems with anesthesia: No Surgical History Surgical History History of esophagogastroduodenoscopy (EGD) Hx of fusion of cervical spine Hx of repair of right rotator cuff History of Problems with Anesthesia: No Social History Social History Household Members: Significant Other and Family Housing: House Do you presently have visiting nurse or other home services: No Alcohol intake: current Alcohol intake frequency: former alcohol drinker Patient Tobacco Use Status: Never used Tobacco Second Hand Smoke Exposure: No Use of substances other than those prescribed or required for medical reasons: No Substance Use Type Other:: hx cocaine Are you DNR?: No Advance Directives: No Advance Directives Information Provided: Yes Advance Directives Date on File: 02/05/23 service: No Current occupational status: retired Meds Allergies Allergy/AdvReac Type Severity Reaction Status Date / Time No Known Allergies Allergy Mild NKA Verified 02/06/23 12:58 Home Medications Medication Instructions Recorded Confirmed Last Taken Type atorvastatin 20 mg tablet 20 mg PO BEDTIME 08/04/20 05/18/23 06/03/21 History lisinopril 5 mg tablet 5 mg PO DAILY 08/04/20 05/22/23 06/03/21 History metformin 850 mg tablet 850 mg PO TID 08/04/20 05/22/23 06/03/21 History famotidine 20 mg tablet 20 mg PO BID PRN Heartburn 02/05/23 05/18/23 Unknown History folic acid 800 mcg tablet 0.8 mg PO DAILY 02/05/23 05/22/23 Unknown History insulin glargine 100 unit/mL (3 60 unit subcut BEDTIME 02/05/23 05/22/23 05/21/23 History mL) subcutaneous pen levetiracetam 500 mg tablet 500 mg PO BID 02/05/23 05/22/23 Unknown History magnesium oxide 400 mg (241.3 mg 400 mg PO BID 02/05/23 05/18/23 Unknown History magnesium) tablet omega-3 fatty acids 500 mg capsule 500 mg PO DAILY 02/05/23 05/18/23 Unknown History Exam Height,Weight and Vital Signs: Height 5 ft 8 in Weight 89.811 kg Narrative Narrative: EKG 01/2023 Vent. Rate : 077 BPM Atrial Rate : 077 BPM P-R Int : 140 ms QRS Dur : 080 ms QT Int : 380 ms P-R-T Axes : 020 057 054 degrees QTc Int : 430 ms Normal sinus rhythm Normal ECG When compared with ECG of 04-JUN-2021 22:04, No significant change was found Assessment and Plan Assessment Anesthesia Assessment: Chart Reviewed Final Anesthetic Review Family History of Problems with Anesthesia: No History of Problems with Anesthesia: No Documented by User: Mark Matt MD 05/22/23 09:25 [facility] Past Medical History Medical History High cholesterol Hypertension Type 2 diabetes mellitus Seizure Surgical History Surgical History History of esophagogastroduodenoscopy (EGD) Hx of fusion of cervical spine Hx of repair of right rotator cuff Social History Social History Household Members: Significant Other and Family Housing: House Do you presently have visiting nurse or other home services: No Alcohol intake: current Alcohol intake frequency: former alcohol drinker Patient Tobacco Use Status: Never used Tobacco Second Hand Smoke Exposure: No Use of substances other than those prescribed or required for medical reasons: No Substance Use Type Other:: hx cocaine Are you DNR?: No Advance Directives: No Advance Directives Information Provided: Yes Advance Directives Date on File: 02/05/23 service: No Current occupational status: retired Meds Allergies Allergy/AdvReac Type Severity Reaction Status Date / Time No Known Allergies Allergy Mild NKA Verified 02/06/23 12:58 Home Medications Medication Instructions Recorded Confirmed Last Taken Type atorvastatin 20 mg tablet 20 mg PO BEDTIME 08/04/20 05/18/23 06/03/21 History lisinopril 5 mg tablet 5 mg PO DAILY 08/04/20 05/22/23 06/03/21 History metformin 850 mg tablet 850 mg PO TID 08/04/20 05/22/23 06/03/21 History famotidine 20 mg tablet 20 mg PO BID PRN Heartburn 02/05/23 05/18/23 Unknown History folic acid 800 mcg tablet 0.8 mg PO DAILY 02/05/23 05/22/23 Unknown History insulin glargine 100 unit/mL (3 60 unit subcut BEDTIME 02/05/23 05/22/23 05/21/23 History mL) subcutaneous pen levetiracetam 500 mg tablet 500 mg PO BID 02/05/23 05/22/23 Unknown History magnesium oxide 400 mg (241.3 mg 400 mg PO BID 02/05/23 05/18/23 Unknown History magnesium) tablet omega-3 fatty acids 500 mg capsule 500 mg PO DAILY 02/05/23 05/18/23 Unknown History Exam Airway Mallampati Class: II TM Dist: >3cm Neck ROM: Full Loose/Missing/Broken Teeth: Yes Heart: rrr +s1s2 Lungs: ctab/l Assessment and Plan Assessment Anesthesia Assessment: Anesthesia Plan Discussed and Chart Reviewed Final Anesthetic Review NPO: Yes ASA Class: III Final Preanesthetic Review: No Changes in Pt Med Stat, Meds/Allgs Chart Reviewed, Consent Obtained/Reviewed and Anes Risks/Benef Reviewed Patient Risk: Intermediate Procedure Risk: Intermediate Assessment/Block/Sedation in SS: Assess/Block/Sedation-SS Anesthetic Plan Anesthetic Plan: TIVA Disposition: Standard PACU
--- NOTE | ~2023-05-22 | XR_ITS ---
ENDOSCOPIC IMAGE: Photographic image obtained by Dr. Copeland during endoscopy. The image is archived.
[2023-05-22 08:35] VITALS: BMI 30.1
[2023-05-22 09:05] VITALS: BP 144/75; PULSE 84; RESP 18; TEMP 36.2; O2SAT 97
[2023-05-22 09:07] LABS: Glucose, Whole Blood 90 mg/dL (60-115)
--- NOTE | 2023-05-22 09:34 | MHC.SHP ---
Pre-Procedural Eval Section A - 24 Hr Update-Section A only Date of Service: 05/22/23 Section B - Complete if H&P > 30 days Chief Complaint: ulcer of esophagus,screening Details of Present Illness: see H&P no changes Relevant Family History (Specify if Yes): No Relevant Social History: None Present Medications: see Short Stay Collaborative assessment Medical History: No relevant PMH History of Previous Operations: No relevant previous surgery Allergies: Allergies Allergy/AdvReac Type Severity Reaction Status Date / Time No Known Allergies Allergy Mild NKA Verified 02/06/23 12:58 Review of Systems Sugical H&P ROS: Negative: Constitution, Cardiovascular, Respiratory, Neurological, Psychiatric, Hem-Onc, Allergic/Immunologic, Gastrointestinal, Genitourinary, Musculoskeletal, Integumentary, Endocrine and Eyes/Ears/Nose/Throat Exam Surgical H&P Exam: Normal: HEENT, Normal: Heart, Normal: Lungs, Normal: Extremities, Normal: Abdomen, Normal: Skin and Normal: Neurological Plan Diagnosis/Plan: Unchanged I have reviewed the history and physical and performed a pertinent physical examination on my patient. No changes have occurred unless specified. Time Spent With Patient Time: Total time managing care of this patient today ____ minutes.
[2023-05-22 10:28] VITALS: BP 125/67; PULSE 67; RESP 18; TEMP 36.4; O2SAT 96
[2023-05-22 10:43] VITALS: BP 133/75; PULSE 67; RESP 18; TEMP 36.3; O2SAT 100
--- NOTE | 2023-05-22 12:08 | OP_ITS ---
DATE OF SERVICE: 05/22/2023 SURGEON: Tamir Copeland MD INDICATIONS: 1. Erosive esophagitis. 2. Colon cancer screening. PREOPERATIVE DIAGNOSIS: POSTOPERATIVE DIAGNOSIS: PROCEDURE PERFORMED: Upper endoscopy with biopsy, colonoscopy to the terminal ileum with biopsy. ESTIMATED BLOOD LOSS: COMPLICATIONS: ANESTHESIA: Monitored anesthesia care. ASSISTANTS: SPECIMENS: DESCRIPTION OF PROCEDURE: A history and physical was performed. The risks and benefits of the procedure were explained to the patient. Informed consent was obtained. The patient was placed in the left lateral decubitus position. The Olympus videogastroscope was introduced into the esophagus, stomach, and duodenum. Examination was performed. The scope was removed. He was repositioned for colonoscopy. A digital rectal exam was performed and was found to be normal. The Olympus pediatric video colonoscope was introduced into the rectum and advanced to the cecum. The cecum was identified by transillumination, palpation, and identification of ileocecal valve. Examination was performed. The scope was removed. He tolerated the procedure well and was returned to the recovery area in stable condition. FINDINGS: Upper endoscopy: 1. Esophagus: The esophagus showed marked improvement from his previous examination with an irregular EG junction, but no esophagitis. Biopsies were obtained from the distal esophagus. 2. Stomach: The stomach was normal. Antral biopsies were obtained. 3. Duodenum: The bulb and 2nd portion were normal. Colonoscopy: The terminal ileum was examined and appeared normal. The visualized colonic mucosa was normal. In the cecum was a small polyp measuring less than 5 mm, which was removed with a biopsy forceps. No other polyps were identified. The quality of the prep was good. Retroflexed examination showed moderate-sized internal hemorrhoids. IMPRESSION: 1. Esophagitis. 2. Colon polyp. RECOMMENDATION: Follow up the biopsy results. MD ANKIT Aragon/STEVE / [id number]
== END 2023-05-22 11:12 | disposition home or self-care (01) ==
PROVIDERS: PCP Internal Medicine; Visit Provider Internal Medicine Gastroenterology
PROC: (CPT 45380; principal; 2023-05-22 10:00)
DX: Z12.11 Encounter for screening for malignant neoplasm of colon (principal); D12.0 Benign neoplasm of cecum; K20.90 Esophagitis, unspecified without bleeding; Z87.19 Personal history of other diseases of the digestive system; E11.9 Type 2 diabetes mellitus without complications; Z79.899 Other long term (current) drug therapy
CPT/HCPCS: 45380; 43239; 82947; 88305; 88313; 88342; J2704

== ENCOUNTER 2023-08-17 17:25 | Emergency (ER) | payer OTHER, SELFPAY ==
[2023-08-17 17:31] VITALS: BP 143/89; PULSE 80; O2SAT 99; BMI 30.3
[2023-08-17 17:34] LABS: Glucose, Whole Blood 79 mg/dL (60-115)
--- NOTE | 2023-08-17 17:45 | ED_ITS ---
HPI - General Adult General Chief complaint: General Medical Stated complaint: ALTERED, POC *38, DIABETIC Time Seen by Provider: 08/17/23 17:27 Source: patient Mode of arrival: ambulatory Limitations: no limitations History of Present Illness ED Provider: Luiz CÁRDENAS HPI narrative: 63 year old male hx of diabetes, presents with concerns of low blood glucose at home poc 38 his girlfriend called EMS as he seemed to be confused. [facility] gave D10 with improvement in AMS. When he arrives he is A&O x 4 he reports he did not eat for two days because he was not hungry . He reports he feels fine now. This has happened to him before. Denies cp, sob, recent illness,fevers, chills, nausea, vomiting, abd pain, headache, vision changes, dizziness, si and HI Related Data Home Medications ?Medication ?Instructions ?Recorded ?Confirmed atorvastatin 20 mg tablet 20 mg PO BEDTIME 08/04/20 05/18/23 lisinopril 5 mg tablet 5 mg PO DAILY 08/04/20 05/22/23 metformin 850 mg tablet 850 mg PO TID 08/04/20 05/22/23 famotidine 20 mg tablet 20 mg PO BID PRN Heartburn 02/05/23 05/18/23 folic acid 800 mcg tablet 0.8 mg PO DAILY 02/05/23 05/22/23 insulin glargine 100 unit/mL (3 60 unit subcut BEDTIME 02/05/23 05/22/23 mL) subcutaneous pen levetiracetam 500 mg tablet 500 mg PO BID 02/05/23 05/22/23 magnesium oxide 400 mg (241.3 mg 400 mg PO BID 02/05/23 05/18/23 magnesium) tablet omega-3 fatty acids 500 mg capsule 500 mg PO DAILY 02/05/23 05/18/23 Previous Rx's ?Medication ?Instructions ?Recorded insulin lispro protamine-lispro 25 unit (0.25 mL) subcut QAM #0 mL 06/15/21 100 unit/mL (75-25) subcutaneous pen omeprazole 40 mg capsule,delayed 40 mg PO DAILY@0630 #90 caps 02/07/23 release Allergies Allergy/AdvReac Type Severity Reaction Status Date / Time No Known Allergies Allergy Mild NKA Verified 08/17/23 17:33 Review of Systems 2 Review of Systems: Yes all other systems are reviewed and are negative [facility] Past Medical History Attestation statement: The following information was validated with the patient. Source: old records reviewed and nursing notes reviewed Medical History High cholesterol Hypertension Type 2 diabetes mellitus Seizure Surgical History History of esophagogastroduodenoscopy (EGD) Hx of fusion of cervical spine Hx of repair of right rotator cuff Social History Social History Household Members: Significant Other and Family Housing: House Do you presently have visiting nurse or other home services: No Alcohol intake: current Alcohol intake frequency: a few times a week Patient Tobacco Use Status: Never used Tobacco Smoked in Last 30 Days: No Second Hand Smoke Exposure: No Use of substances other than those prescribed or required for medical reasons: No Advance Directives: Yes Advance Directives on File: Yes Advance Directives Date on File: 02/05/23 Do you have a plan to hurt others: No Plan service: No Current occupational status: retired Physical Exam ED Vital Signs: Vital Signs - 24 hr 08/17/23 19:04 08/17/23 20:40 Temperature 97.8 F 97.6 F Pulse Rate 65 70 Respiratory Rate 14 16 Blood Pressure 141/62 H 124/64 Pulse Oximetry 98 95 Oxygen Delivery Method Room Air Room Air BMI result Body Mass Index 30.3 vss poc on arrival 79 Appearance: Alert.? Oriented X3.? No acute distress.? Head: Normocephalic, atraumatic, no step-offs or deformities Eyes: Pupils equal, round and reactive to light.? CVS: Normal heart rate and rhythm.? Pulses normal.? Respiratory: No respiratory distress.? Breath sounds normal.? Abdomen: Soft and nontender.? Skin: Skin warm and dry.? Normal skin color.? Normal skin turgor.? Extremities: No lower extremity edema.? No calf ttp. 5/5 strength to bilateral upper and lower extremities Back: No midline tenderness, no C-spine tenderness, full range of motion, no CVA tenderness bilaterally Neuro: Oriented X 3.? No motor deficit.? No sensory deficit. CN 2-12 intact Course Reevaluation(s) Reevaluation #1: CBC unremarkable. Chemistry with low magnesium patient reports he does drink alcohol and is supposed to be taking magnesium supplements which he has not been taking. IV magnesium ordered. Mild elevation in beta hydroxybutyrate and acidosis on VBG. Time: 19:00 Reevaluation #2: POC 165 after D10. Will check q 30 m x 1 hour and then q hour. Patient's beta hydroxybutyrate mildly positive and slight acidosis on VBG. Will hydrate and repeat. Time: 19:58 Reevaluation #3: Repeat VBG no acidosis. Repeat beta hydroxybutyrate improved. Patient's sugars improve patient mentating well. Patient would like to get out of here does not want to stay in the hospital. Discussed this case with my attending who agrees with diagnosis and treatment plan Educated patient on diagnosis and treatment plan, answered all question, patient verbalizes understanding. At this time patient will be discharged home, advised to return with new or worsening symptoms. Educated on worrisome signs and symptoms and when to return. At this time I feel comfortable discharge home. Time: 21:48 Medications Administered Generic Name Dose Route Start Last Admin Trade Name Freq PRN Reason Stop Dose Admin Dextrose 1,000 mls @ 50 mls/hr 08/17/23 18:30 08/17/23 20:00 D10 IVCONT 0 mls/hr .Q20H ROSIBEL Infusion Discontinued Medications Generic Name Dose Route Start Last Admin Trade Name Freq PRN Reason Stop Dose Admin Magnesium Sulfate 2 gm in 50 mls @ 25 mls/hr 08/17/23 19:03 08/17/23 19:48 Magnesium Sulfate/H2o IV 08/17/23 21:02 25 mls/hr ONCE ONE Administration Sodium Chloride 1,000 mls @ 999 mls/hr 08/17/23 20:00 08/17/23 20:02 Ns IV 08/17/23 21:00 999 mls/hr .Q1H1M ROSIBEL Administration Medical Decision Making Medical Decision Making [facility] Narrative: 1746 63 yo m presents w/ hypoglycemia has not eaten for two days POC at home 38 given D10 w/ improvment PE benign a&o X 4 hx and pe concerning for diabetic hypoglycemia. Will rule out metabolic derangments. Unlikley coma, ich, stroke. Denies SI and HI Plan- labs, urine Differential Diagnosis Differential Diagnoses: The differential diagnosis associated with the presentation includes hx and pe concerning for diabetic hypoglycemia. Will rule out metabolic derangments. Unlikley coma, ich, stroke. Denies SI and HI Admission/Observation Consideration of admission/observation: Escalation of care including admission/observation considered Lab Data 08/17/23 18:28 08/17/23 18:28 Labs: Lab Results 08/17/23 08/17/23 08/17/23 Range/Units 17:30 17:49 18:18 WBC (4.8-10.8) X10*3/uL RBC (4.60-5.80) X10*6/uL Hgb (14.0-18.0) g/dl Hct (42.0-52.0) % MCV (80.0-98.0) fL MCH (27.0-33.0) pg MCHC (31.0-36.0) g/dl RDW (11.0-16.0) % Plt Count (160-400) X10*3/uL MPV (9.4-12.4) fL Immature Gran % (Auto) (0.0-0.4) % Neut % (Auto) (45-73) % Lymph % (Auto) (20-40) % [place] % (Auto) (2-11) % Eos % (Auto) (0-4) % Baso % (Auto) (0-2) % Lymph # (Auto) (1.2-4.9) X10*3/uL [place] # (Auto) (0.1-1.2) X10*3/uL Eos # (Auto) (0.0-0.4) X10*3/uL Baso # (Auto) (0.0-0.2) X10*3/uL Abs Immat Gran (auto) (0.00-0.03) X10*3/uL Absolute Neuts (auto) (2.0-8.3) x10*3/uL Absolute Nucleated RBC (0.0-0.012) X10*3/uL Nucleated RBC % (auto) (0.0-0.2) /100WBC VBG pH (7.32-7.43) VBG pCO2 mmHg VBG pO2 mmHg VBG HCO3 (22-26) mmol/L VBG O2 Saturation % VBG Base Excess mmol/L Sodium (135-145) mmol/L Potassium (3.3-5.1) mmol/L Chloride (96-108) mmol/L Carbon Dioxide (22-29) mmol/L Anion Gap (12-20) BUN (9-16) mg/dL Creatinine (0.5-1.4) mg/dL Estim Creat Clear Calc Estimated GFR POC Glucose 79 72 62 (60-115) mg/dL Random Glucose (60-115) mg/dL Calcium (8.4-10.2) mg/dL Magnesium (1.6-2.6) mg/dL Total Bilirubin (0.0-1.0) mg/dL AST (5-37) U/L ALT (0-40) U/L Alkaline Phosphatase (39-117) U/L Total Protein (6.5-8.0) g/dL Albumin (3.5-5.0) g/dL Beta-Hydroxybutyrate (0.02-0.27) mmol/L Urine Color Urine Appearance Urine pH (5.0-9.0) Ur Specific [place] (1.005-1.025) Urine Protein (Neg-Trace) mg/dL Urine Glucose (UA) (Negative) mg/dL Urine Ketones (Negative) mg/dL Urine Blood (Negative) Urine Nitrite (Negative) Ur Leukocyte Esterase (Negative) 08/17/23 08/17/23 08/17/23 Range/Units 18:28 18:33 19:09 WBC 8.8 (4.8-10.8) X10*3/uL RBC 4.89 (4.60-5.80) X10*6/uL Hgb 14.2 (14.0-18.0) g/dl Hct 41.7 L (42.0-52.0) % MCV 85.3 (80.0-98.0) fL MCH 29.0 (27.0-33.0) pg MCHC 34.1 (31.0-36.0) g/dl RDW 13.1 (11.0-16.0) % Plt Count 211 (160-400) X10*3/uL MPV 10.4 (9.4-12.4) fL Immature Gran % (Auto) 1.1 H (0.0-0.4) % Neut % (Auto) 81.8 H (45-73) % Lymph % (Auto) 10.6 L (20-40) % [place] % (Auto) 5.7 (2-11) % Eos % (Auto) 0.6 (0-4) % Baso % (Auto) 0.2 (0-2) % Lymph # (Auto) 0.9 L (1.2-4.9) X10*3/uL [place] # (Auto) 0.5 (0.1-1.2) X10*3/uL Eos # (Auto) 0.1 (0.0-0.4) X10*3/uL Baso # (Auto) 0.0 (0.0-0.2) X10*3/uL Abs Immat Gran (auto) 0.10 H (0.00-0.03) X10*3/uL Absolute Neuts (auto) 7.2 (2.0-8.3) x10*3/uL Absolute Nucleated RBC 0.000 (0.0-0.012) X10*3/uL Nucleated RBC % (auto) 0.0 (0.0-0.2) /100WBC VBG pH 7.29 L (7.32-7.43) VBG pCO2 50 mmHg VBG pO2 33 mmHg VBG HCO3 24 (22-26) mmol/L VBG O2 Saturation 38.0 % VBG Base Excess -2.6 mmol/L Sodium 141 (135-145) mmol/L Potassium 4.1 (3.3-5.1) mmol/L Chloride 103 (96-108) mmol/L Carbon Dioxide 22 (22-29) mmol/L Anion Gap 20 (12-20) BUN 13 (9-16) mg/dL Creatinine 1.08 (0.5-1.4) mg/dL Estim Creat Clear Calc 78.3 Estimated GFR > 60 POC Glucose (60-115) mg/dL Random Glucose 69 (60-115) mg/dL Calcium 8.6 (8.4-10.2) mg/dL Magnesium 1.2 L* (1.6-2.6) mg/dL Total Bilirubin 0.6 (0.0-1.0) mg/dL AST 40 H (5-37) U/L ALT 29 (0-40) U/L Alkaline Phosphatase 61 (39-117) U/L Total Protein 7.8 (6.5-8.0) g/dL Albumin 4.7 (3.5-5.0) g/dL Beta-Hydroxybutyrate 0.65 H (0.02-0.27) mmol/L Urine Color Yellow Urine Appearance Clear Urine pH 5.5 (5.0-9.0) Ur Specific [place] 1.020 (1.005-1.025) Urine Protein Trace (Neg-Trace) mg/dL Urine Glucose (UA) Negative (Negative) mg/dL Urine Ketones 15 (Negative) mg/dL Urine Blood Negative (Negative) Urine Nitrite Negative (Negative) Ur Leukocyte Esterase Negative (Negative) 08/17/23 08/17/23 08/17/23 Range/Units 19:56 20:30 20:47 WBC (4.8-10.8) X10*3/uL RBC (4.60-5.80) X10*6/uL Hgb (14.0-18.0) g/dl Hct (42.0-52.0) % MCV (80.0-98.0) fL MCH (27.0-33.0) pg MCHC (31.0-36.0) g/dl RDW (11.0-16.0) % Plt Count (160-400) X10*3/uL MPV (9.4-12.4) fL Immature Gran % (Auto) (0.0-0.4) % Neut % (Auto) (45-73) % Lymph % (Auto) (20-40) % [place] % (Auto) (2-11) % Eos % (Auto) (0-4) % Baso % (Auto) (0-2) % Lymph # (Auto) (1.2-4.9) X10*3/uL [place] # (Auto) (0.1-1.2) X10*3/uL Eos # (Auto) (0.0-0.4) X10*3/uL Baso # (Auto) (0.0-0.2) X10*3/uL Abs Immat Gran (auto) (0.00-0.03) X10*3/uL Absolute Neuts (auto) (2.0-8.3) x10*3/uL Absolute Nucleated RBC (0.0-0.012) X10*3/uL Nucleated RBC % (auto) (0.0-0.2) /100WBC VBG pH (7.32-7.43) VBG pCO2 mmHg VBG pO2 mmHg VBG HCO3 (22-26) mmol/L VBG O2 Saturation % VBG Base Excess mmol/L Sodium (135-145) mmol/L Potassium (3.3-5.1) mmol/L Chloride (96-108) mmol/L Carbon Dioxide (22-29) mmol/L Anion Gap (12-20) BUN (9-16) mg/dL Creatinine (0.5-1.4) mg/dL Estim Creat Clear Calc Estimated GFR POC Glucose 165 H 208 H (60-115) mg/dL Random Glucose (60-115) mg/dL Calcium (8.4-10.2) mg/dL Magnesium (1.6-2.6) mg/dL Total Bilirubin (0.0-1.0) mg/dL AST (5-37) U/L ALT (0-40) U/L Alkaline Phosphatase (39-117) U/L Total Protein (6.5-8.0) g/dL Albumin (3.5-5.0) g/dL Beta-Hydroxybutyrate 0.19 (0.02-0.27) mmol/L Urine Color Urine Appearance Urine pH (5.0-9.0) Ur Specific [place] (1.005-1.025) Urine Protein (Neg-Trace) mg/dL Urine Glucose (UA) (Negative) mg/dL Urine Ketones (Negative) mg/dL Urine Blood (Negative) Urine Nitrite (Negative) Ur Leukocyte Esterase (Negative) 08/17/23 08/17/23 Range/Units 20:49 21:01 WBC (4.8-10.8) X10*3/uL RBC (4.60-5.80) X10*6/uL Hgb (14.0-18.0) g/dl Hct (42.0-52.0) % MCV (80.0-98.0) fL MCH (27.0-33.0) pg MCHC (31.0-36.0) g/dl RDW (11.0-16.0) % Plt Count (160-400) X10*3/uL MPV (9.4-12.4) fL Immature Gran % (Auto) (0.0-0.4) % Neut % (Auto) (45-73) % Lymph % (Auto) (20-40) % [place] % (Auto) (2-11) % Eos % (Auto) (0-4) % Baso % (Auto) (0-2) % Lymph # (Auto) (1.2-4.9) X10*3/uL [place] # (Auto) (0.1-1.2) X10*3/uL Eos # (Auto) (0.0-0.4) X10*3/uL Baso # (Auto) (0.0-0.2) X10*3/uL Abs Immat Gran (auto) (0.00-0.03) X10*3/uL Absolute Neuts (auto) (2.0-8.3) x10*3/uL Absolute Nucleated RBC (0.0-0.012) X10*3/uL Nucleated RBC % (auto) (0.0-0.2) /100WBC VBG pH 7.35 (7.32-7.43) VBG pCO2 43 mmHg VBG pO2 37 mmHg VBG HCO3 24 (22-26) mmol/L VBG O2 Saturation 51.0 % VBG Base Excess -1.1 mmol/L Sodium (135-145) mmol/L Potassium (3.3-5.1) mmol/L Chloride (96-108) mmol/L Carbon Dioxide (22-29) mmol/L Anion Gap (12-20) BUN (9-16) mg/dL Creatinine (0.5-1.4) mg/dL Estim Creat Clear Calc Estimated GFR POC Glucose 209 H (60-115) mg/dL Random Glucose (60-115) mg/dL Calcium (8.4-10.2) mg/dL Magnesium (1.6-2.6) mg/dL Total Bilirubin (0.0-1.0) mg/dL AST (5-37) U/L ALT (0-40) U/L Alkaline Phosphatase (39-117) U/L Total Protein (6.5-8.0) g/dL Albumin (3.5-5.0) g/dL Beta-Hydroxybutyrate (0.02-0.27) mmol/L Urine Color Urine Appearance Urine pH (5.0-9.0) Ur Specific [place] (1.005-1.025) Urine Protein (Neg-Trace) mg/dL Urine Glucose (UA) (Negative) mg/dL Urine Ketones (Negative) mg/dL Urine Blood (Negative) Urine Nitrite (Negative) Ur Leukocyte Esterase (Negative) Critical Care Time Critical Care Time Critical Care Time: Yes Total Critical Care Time: 35 Attestation: I attest to this time spent taking care of the patient, obtaining history, physical, reviewing labs, imaging, speaking to my attending, specialist or hospitalist. Discharge Plan Discharge Clinical Impression: Hypoglycemia, Starvation ketoacidosis Patient Disposition: Home, Self-Care Additional Instructions: Take your medications as prescribed. If you were prescribed antibiotics today, it is important that you take your medication to their entirety, do not skip any doses, do not finish them early. Follow-up with your primary care provider this week. Return to the emergency department with new or worsening symptoms. Such as fevers, chills, chest pain, shortness of breath, nausea, vomiting, dizziness, headache, vision changes, lethargy In case of emergency call 911 Please check your sugars frequently. If you start having these symptoms have a snack with sugar in it/ carbs : * Looking pale (pallor) * Shakiness. * Dizziness or lightheadedness. * Sweating. * Hunger or nausea. * An irregular or fast heartbeat. * Difficulty concentrating. * Feeling weak and having no energy (fatigue) Prescriptions: No Action insulin lispro protamin-lispro 100 unit/mL (75-25) insulin pen 25 unit subcut QAM Qty: 0 0RF levetiracetam 500 mg tablet 500 mg PO BID famotidine 20 mg tablet 20 mg PO BID PRN (Reason: Heartburn) magnesium oxide 400 mg (241.3 mg magnesium) tablet 400 mg PO BID folic acid 800 mcg tablet 0.8 mg PO DAILY omega-3 fatty acids 500 mg Capsule 500 mg PO DAILY insulin glargine 100 unit/mL (3 mL) insulin pen 60 unit subcut BEDTIME omeprazole 40 mg Capsule,Delayed Release(Dr/Ec) 40 mg PO DAILY@0630 Qty: 90 0RF lisinopril 5 mg tablet 5 mg PO DAILY metformin 850 mg tablet 850 mg PO TID atorvastatin 20 mg tablet 20 mg PO BEDTIME Referrals: Stephanie Snell MD [Primary Care Provider] - 3 days Stand Alone Forms: Work/School Release Print Language: German
[2023-08-17 17:54] LABS: Glucose, Whole Blood 72 mg/dL (60-115)
--- OUTSIDE RECORDS SUMMARY | 2023-08-17 18:12 | XMS_ITS | Continuity of Care Document ---
Author Organization [facility] ter Address [address] [place] [id number]- Care Team Providers Care Runstitching Machine Operator Name Role Phone Alis MAY, Vishnu Luna Primary Care Physician [phone] Encounter [facility] [place] Date(s): 06/21/21 - 06/24/[address] [address]- Encounter Diagnosis Hypoglycemia(Final) - 06/21/21 Shaking(Final) - 06/22/21 Discharge Disposition: A-D/C Home Attending Physician: Mattie Rosen MD Admitting Physician: Nicholas French MD Referring Physician: Not on Staff, Referring MD Allergies, Adverse Reactions, Alerts No Known Allergies Medications Fish Oil By Mouth, Daily, 0 Refills, Maintenance, 06/22/21 1:03:00 EDT, Partial fill upon patient request ifthe prescription is for a schedule II opioid drug. Start Date: 06/22/21 Status: Ordered Folic Acid By Mouth, Daily, 0 Refills, Maintenance, 06/22/21 1:02:00 EDT, Partial fill upon patient request ifthe prescription is for a schedule II opioid drug. Start Date: 06/22/21 Status: Ordered Leader [place] Glucose 4 g oral tablet, chewable 4 tablet = 16 Gm, Chew, Once, PRN for low blood sugar, may repeat in 15 to 20 minutes if blood sugar still < 60 mg/dL, # 12 tablet, 0 Refills, Soft Stop, 06/21/21 19:01:00 EDT, Chew Tablet, [facility] #[id number], Partial fill upon patient reques... Start Date: 06/21/21 Status: Ordered levETIRAcetam 500 mg oral tablet 1 tablet = 500 mg, By Mouth, Every 12 hours, # 60 tablet, 0 Refills, Maintenance, 06/24/21 16:38:00EDT, Tablet, [facility], Partial fill upon patient request if the prescription is fora schedule II opioid drug., 173, cm, 06/24/21 3:59:... Start Date: 06/24/21 Stop Date: 07/24/21 Status: Ordered lisinopril 5 mg oral tablet 5 mg, 1, tablet, By Mouth, Daily, Refills 0, Maintenance, 06/22/21 1:04:00 EDT, Partial fill upon patient request if the prescription is for a schedule II opioid drug. Start Date: 06/22/21 Status: Ordered lisinopril 5 mg oral tablet 5 mg, Tablet, By Mouth, 06/24/21 9:00:00 EDT Start Date: 06/24/21 Stop Date: 06/24/21 Status: Completed Metformin = 850 mg, By Mouth, 3 times a day, 0 Refills, Maintenance, 06/22/21 1:00:00 EDT, Partial fill upon patient request if the prescription is for a schedule II opioid drug. Start Date: 06/22/21 Status: Ordered multivitamin Multiple Vitamins oral tablet 1 tablet, By Mouth, Daily, # 90 tablet, 0 Refills, Maintenance, 06/21/21 19:00:00 EDT, Tablet, [facility] #[id number], Partial fill upon patient request if the prescription is for a schedule II opioid drug., 1 tablet By Mouth Daily Start Date: 06/21/21 Status: Ordered Problem List Condition Effective Dates Status Health Status Inform ant Obese class I(Confirmed) Active Vital Signs Most recent to oldest [Reference Range]: 1 2 3 Height 173 cm (06/24/21 3:59 AM) 173 cm (06/23/21 4:26 AM) 173 cm (06/23/21 12:15 AM) Weight 91 kg (06/22/21 4:02 PM) Oxygen Saturation [94-100 %] 100 % (06/24/21 3:00 PM) 99 % (06/24/21 11:00 AM) 99 % (06/24/21 3:59 AM) Pulse Rate [55-90 bpm] 53 bpm *L* (06/24/21 3:00 PM) 58 bpm (06/24/21 11:00 AM) 106 bpm *H* (06/24/21 3:59 AM) Body Mass Index [18.5-24.99] 30.41 *>HHI* (06/22/21 4:02 PM) Blood Pressure [90-138/55-84 mm Hg] 106/72mm Hg (06/24/21 3:00 PM) 110/66mm Hg (06/24/21 11:00 AM) 109/60mm Hg (06/24/21 8:47 AM) Respiratory Rate [16-30 br/min] 18 br/min (06/24/21 3:00 PM) 20 br/min (06/24/21 11:00 AM) 18 br/min (06/24/21 3:59 AM) Temperature [96.8-100.4 DegF] 97 DegF (06/24/21 3:00 PM) 97.4 DegF (06/24/21 11:00 AM) 97.9 DegF (06/24/21 3:59 AM) Liters per Minute 0 L/min (06/24/21 3:00 PM) 0 L/min (06/24/21 11:00 AM) 0 L/min (06/23/21 2:00 PM) Mode of Delivery (Oxygen) Room air (06/24/21 3:00 PM) Room air (06/24/21 11:00 AM) Room air (06/24/21 3:59 AM) Blood pressure sites Arm, left (06/24/21 3:00 PM) Arm, left (06/24/21 11:00 AM) Arm, left (06/24/21 3:59 AM) Temperature Route Temporal (06/24/21 3:00 PM) Temporal (06/24/21 11:00 AM) Temporal (06/24/21 3:59 AM) Dry Weight 91 kg (06/22/21 4:02 PM) Weight Obtained Via Patient/family state d (06/22/21 4:02 PM) Dry Weight Obtained Via Patient/family s tated (06/22/21 4:02 PM) Social History Social History Type Response Smoking Status Never (less than 100 in lifetime) entered on: 06/22/21 Sex
--- OUTSIDE RECORDS SUMMARY | 2023-08-17 18:12 | XMS_ITS | Continuity of Care Document ---
Author Organization [facility] Address Unknown Care Team Providers Care Spout Positioner Name Role Phone Vishnu Snell MD Primary Care Physician [id number] Date(s): 09/05/21 - 10/05/21 [facility] Attending Physician: Priti Smiley Admitting Physician: Priti Smiley Referring Physician: Priti Smiley Allergies, Adverse Reactions, Alerts No Known Allergies [...] opioid drug. Start Date: 06/22/21 Status: Ordered Humalog 100 u/ml subcutaneous injection = 1 units, Subcutaneous Infusion, 0 Refills, Maintenance, 09/05/21 7:51:00 EDT, Partial fill upon patient request if the prescription is for a schedule II opioid drug. Start Date: 09/05/21 Status: Ordered Lantus 100 u/ml subcutaneous solution Subcutaneous Infusion, Daily, 0 Refills, Maintenance, 09/05/21 7:51:00 EDT, Partial fill upon patient request if the prescription is for a schedule II opioid drug. Start Date: 09/05/21 Status: Ordered Leader [place] Glucose 4 g oral tablet, chewable 4 tablet = 16 Gm, Chew, Once, PRN for low blood sugar, may repeat in 15 to 20 minutes if blood sugar still < 60 mg/dL, # 12 tablet, 0 Refills, Soft Stop, 06/21/21 19:01:00 EDT, Chew Tablet, [facility] #[id number], Partial fill upon patient reques... Start Date: 06/21/21 Status: Ordered levETIRAcetam 500 mg oral tablet 1 tablet = 500 mg, By Mouth, Every 12 hours, # 180 tablet, 0 Refills, Maintenance, 09/05/21 8:13:00EDT, Tablet, Partial fill upon patient request if the prescription is for a schedule II opioid drug. Start Date: 09/05/21 Stop Date: 12/04/21 Status: Ordered lisinopril 5 mg oral tablet 5 mg, 1, tablet, By Mouth, Daily, Refills 0, Maintenance, 06/22/21 1:04:00 EDT, Partial fill upon patient request if the prescription is for a schedule II opioid drug. Start Date: 06/22/21 Status: Ordered Metformin = 850 mg, By Mouth, 3 times a day, 0 Refills, Maintenance, 06/22/21 1:00:00 EDT, Partial fill upon patient request if the prescription is for a schedule II opioid drug. Start Date: 06/22/21 Status: Ordered multivitamin Multiple Vitamins oral tablet 1 tablet, By Mouth, Daily, # 90 tablet, 0 Refills, Maintenance, 06/21/21 19:00:00 EDT, Tablet, [facility] #[id number], Partial fill upon patient request if the prescription is for a schedule II opioid drug., 1 tablet By Mouth Daily Start Date: 06/21/21 Status: Ordered Social History Social History Type Response Smoking Status Never (less than 100 in lifetime) entered on: 06/22/21 Sex
--- OUTSIDE RECORDS SUMMARY | 2023-08-17 18:13 | XMS_ITS | Patient Health Record ---
Author Organization [facility] Address [address] [place] [address] Care Team Providers Care Assistant Front Office Manager Name Role Phone Alis MAY, Stephanie Primary Care Provider Tamir Prieto Jr [phone] ALLERGIES No Known Allergies RESULTS Component Value Reference Range Notes Glucose, Whole Blood Reviewed date:05/22/2023 04:44:11 PM Interpretation: Performing Lab:[facility], [address] [place] [id number] Notes/Report: Glucose, Whole Blood 90 60-115 mg/dL METER # : [id number] Pathology Reviewed date:05/31/2023 11:26:24 AM Interpretation: Performing Lab:[facility], [address] [place] [phone] Notes/Report: XR Surgical Image Reviewed date:06/14/2023 08:56:08 AM Interpretation: Performing Lab: Notes/Report: [address] [address] XRay Report Signed Patient: Jennyfer Potter MR#: [id number] 722 : 1960 Acct:[id number] Age/Sex: 63 / M ADM Date: 05/22/23 Loc: HO.SSS Attending Dr: Tamir Copeland MD Ordering Physician: Tamir Copeland MD Date of Service: 05/22/23 Procedure(s): XR Surgical Image Accession Number(s): [id number] cc: Tamir Copeland MD; Stephanie Snell MD ENDOSCOPIC IMAGE: Photographic image obtained by Dr. Copeland during endoscopy. The image is archived. 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 the day before the procedure for 1 day 03/28/2023 Active Omeprazole 20 MG 2 capsules Orally On ce a day Active Famotidine 20 MG Oral for 90 N ot-Taking Folic Acid 800 MCG Oral for 90 Active Fish Oil Active metFORMIN HCl 850 MG Oral for 90 Active Lantus SoloStar 100 UNIT/ML Subcutaneous for 90 Active levETIRAcetam 500 MG Oral for 90 Active Atorvastatin Calcium 20 MG Oral for 90 Active SOCIAL HISTORY Tobacco Use: Social History Observation Description Date Details (start date - stop date) Never Smoker NA - NA Sex Assigned At : Social History Observation Description Sex Assigned At Unknown Tobacco Use/Smoking Question Answer Notes Patient is a nonsmoker Alcohol Screen Question Answer Notes Did you have a drink contain ing alcohol in the past year? Yes How often did you have a dri nk containing alcohol in the past year? 2 to 4 times a month (2 points) How many drinks did you have on a typical day when you were drinking in the past year? 7 to 9 drinks (3 points) Points 5 Interpretation Positive PROBLEMS Problem Type ICD Code Onset Dates Problem Status W/U Status Risk SNOMED Code Notes Problem Colon cancer screening (Z12.11) Active confirmed 732093600 Problem Duodenitis (K29.80) Active confirmed Duodenitis (01296095) Problem Erosive esophagitis (K22.10) Active confirmed 33845257 Problem Gastritis (K29.70) Active confirmed Gastritis (5239729) Problem Duodenal bulb ulcer (K26.9) Active confirmed Duodenal ulcer without hemorrhage, without perforation AND without obstruction (06676859) VITAL SIGNS Temperature 97.7 degrees Fahrenheit 03/28/2023 Blood pressure diastolic 00 mm Hg 03/28/2023 Height 5 ft 8 in in 03/28/2023 Blood pressure systolic 00 mm Hg 03/28/2023 Weight 198 lbs 03/28/2023 BMI 30.10 kg/m2 03/28/2023 Encounters Encounter Location Date Provider Diagnosis [facility] Inpatient [address] [place] [id number] 02/06/2023 Tamir Copeland Jr [facility] Outpatient [address] [place] [id number] 05/22/2023 Tamir Copeland Jr Encounter for screening colonoscopy Z12.11 ; Colon polyps K63.5 and Erosive esophagitis K22.10 [facility] [address] [place] [phone] 03/28/2023 Tamir Copeland Jr Erosive esophagitis K22.10 and Colon cancer screening Z12.11 [facility] [address] [place] [phone] 02/20/2023 Tamir Copeland Jr [facility] [address] [place] [phone] 05/31/2023 Tamir Copeland Jr ASSESSMENTS Encounter Date Diagnosis Assessment Notes Treatment Notes Treatment Clinical Notes 05/22/2023 Encounter for screening colonoscopy (ICD-10 - Z12.11) 05/22/2023 Colon polyps (ICD-10 - K63.5) 03/28/2023 Colon cancer screening (ICD-10 - Z12.11) 03/28/2023 Erosive esophagitis (ICD-10 - K22.10) Endoscopy material was printed 05/22/2023 Erosive esophagitis (ICD-10 - K22.10) PLAN OF TREATMENT Future Test Test Name Order Date UPPER GI ENDOSCOPY 03/28/2023 COLONOSCOPY 03/28/2023 Insurance Providers Payer Name Payer Address Payer Phone Subscriber Number Group Number Insured Name Patient Relationship to Insured Coverage Start Date Coverage End Date [facility] [address] [place] [phone] [id number] JENNYFER POTTER Self - patient is the insured MEDICAL (GENERAL) HISTORY Medical History History ICD Code Diabetes mellitus type 2 Hyperlipidemia EGD 02/10 erosive esophagitis Seizure disorder Surgical History Surgery Date(Month/Year) cervical fusion c6-c7 rotator cuff repair
[2023-08-17 18:25] LABS: Glucose, Whole Blood 62 mg/dL (60-115)
[2023-08-17] MEDS: Dextrose 10 % 1,000 ML 50 ML IVCONT (18:31)
[2023-08-17 18:37] LABS: MANUAL DIFF FLAG NO
[2023-08-17 18:39] LABS: Venous Blood Gas Refer to POC result
[2023-08-17 18:40] LABS: VBG Base Excess -2.6 mmol/L; VBG HCO3 24 mmol/L (22-26); VBG pCO2 50 mmHg; VBG pH 7.29 (7.32-7.43); VBG pO2 33 mmHg
[2023-08-17 18:43] LABS: Basophils Percent Auto 0.2 % (0-2); Eosinophils Absolute Auto 0.1 X10*3/uL (0.0-0.4); Eosinophils Percent Auto 0.6 % (0-4); Hematocrit 41.7 % (42.0-52.0); Hemoglobin 14.2 g/dl (14.0-18.0); Imm Gran Pct Auto 1.1 % (0.0-0.4); Lymphocytes Absolute Auto 0.9 X10*3/uL (1.2-4.9); Lymphocytes Percent Auto 10.6 % (20-40); Mean Corpuscular HGB Conc 34.1 g/dl (31.0-36.0); Mean Corpuscular Volume 85.3 fL (80.0-98.0); Mean Platelet Volume 10.4 fL (9.4-12.4); Monocytes Absolute Auto 0.5 X10*3/uL (0.1-1.2); Monocytes Percent Auto 5.7 % (2-11); Neutrophils Absolute Auto 7.2 x10*3/uL (2.0-8.3); Neutrophils Percent Auto 81.8 % (45-73); Platelet Count 211 X10*3/uL (160-400); Red Blood Count 4.89 X10*6/uL (4.60-5.80); Red Cell Distribution Width 13.1 % (11.0-16.0); White Blood Count 8.8 X10*3/uL (4.8-10.8)
[2023-08-17 18:52] LABS: Beta-Hydroxybutyrate 0.65 mmol/L (0.02-0.27)
[2023-08-17 18:56] LABS: Alanine Aminotransferase 29 U/L (0-40); Albumin Level 4.7 g/dL (3.5-5.0); Alkaline Phosphatase 61 U/L (39-117); Anion Gap 20 (12-20); Aspartate Amino Transferase 40 U/L (5-37); Bilirubin Total 0.6 mg/dL (0.0-1.0); Blood Urea Nitrogen 13 mg/dL (9-16); Calcium 8.6 mg/dL (8.4-10.2); Carbon Dioxide 22 mmol/L (22-29); Chloride 103 mmol/L (96-108); Creatinine Clr Calc Pharmacy 78.3; Estimated Glomerular Filt Rate > 60; Glucose Random 69 mg/dL (60-115); Potassium 4.1 mmol/L (3.3-5.1); Sodium 141 mmol/L (135-145); Total Protein 7.8 g/dL (6.5-8.0)
[2023-08-17 18:57] LABS: Magnesium 1.2 mg/dL (1.6-2.6)
[2023-08-17 19:04] VITALS: BP 141/62; PULSE 65; RESP 14; TEMP 36.6; O2SAT 98
[2023-08-17 19:18] LABS: Appearance Urine Clear; Color Urine Yellow; Glucose Urine UA Negative (Negative); Leukocyte Esterase Urine Negative (Negative); Nitrite Urine Negative (Negative); PH 5.5 (5.0-9.0); Urine Blood Negative (Negative); Urine Ketones 15 mg/dL (Negative); Urine Protein Trace mg/dL (Neg-Trace)
[2023-08-17] MEDS: Magnesium Sulfate/H2O 2 GM/50 ML PIGGYBACK IV (19:48)
--- NOTE | 2023-08-17 19:58 | PC.NURSE ---
POC checked 165: Discussed with provider and gtt on hold. recheck poc in 30 minutes.
[2023-08-17 19:59] LABS: Glucose, Whole Blood 165 mg/dL (60-115)
[2023-08-17] MEDS: 0.9 % Sodium Chloride 1,000 ML 999 ML IV (20:02)
[2023-08-17 20:34] LABS: Glucose, Whole Blood 208 mg/dL (60-115)
[2023-08-17 20:40] VITALS: BP 124/64; PULSE 70; RESP 16; TEMP 36.4; O2SAT 95
[2023-08-17 20:57] LABS: VBG Base Excess -1.1 mmol/L; VBG HCO3 24 mmol/L (22-26); VBG pCO2 43 mmHg; VBG pH 7.35 (7.32-7.43); VBG pO2 37 mmHg
[2023-08-17 21:05] LABS: Glucose, Whole Blood 209 mg/dL (60-115)
[2023-08-17 21:06] LABS: Venous Blood Gas Refer to POC result
[2023-08-17 21:08] LABS: Beta-Hydroxybutyrate 0.19 mmol/L (0.02-0.27)
[2023-08-17 22:13] VITALS: BP 125/70; PULSE 62; RESP 16; TEMP 36.4; O2SAT 97
== END 2023-08-17 22:59 | disposition home or self-care (01) ==
PROVIDERS: Physician Assistant; Emergency Provider Emergency Medicine; PCP Internal Medicine
DX: E11.649 Type 2 diabetes mellitus with hypoglycemia without coma (principal); R41.82 Altered mental status, unspecified; E87.29 Other acidosis; Z79.899 Other long term (current) drug therapy
CPT/HCPCS: 36415; 80053; 81003; 82010; 82803; 82947; 83735; 85025; 96365; 96375; 99284; J3475

== ENCOUNTER 2024-11-08 16:19 | Emergency (ER) | payer BC, SELFPAY ==
--- OUTSIDE RECORDS SUMMARY | 2023-05-22 05:20 | XMS_ITS ---
Author Organization [facility] Address [address] [place] [id number] Care Team Providers Care Knife Blade Polisher Name Role Phone Alis MAY, Stephanie Primary Care Provider Tamir Prieto Jr REASON FOR VISIT erosive esophagitis, Encounters Encounter Location Date Provider Diagnosis [facility] [facility] [address] [place] [phone] 05/22/2023 Tamir Copeland Jr Encounter for screening colonoscopy Z12.11 ; Colon polyps K63.5 and Erosive esophagitis K22.10 Assessments Encounter Date Diagnosis (ICD Code) Assessment Notes Treatment Notes Treatment Clinical Notes Section Notes 05/22/2023 Encounter for screening colonoscopy (ICD-10 - Z12.11) 05/22/2023 Colon polyps (ICD-10 - K63.5) 05/22/2023 Erosive esophagitis (ICD-10 - K22.10) Plan Of Treatment No Information Progress Notes * JENNYFER POTTERDOB:1960 (64 yo M)Acc No.[id number]:05/22/2023 EGD and COL/MAC Patient: JENNYFER ROGER Provider: Ej Copeland MD :1960 A ge:63 Y S ex:Male Date:05/22/2023 Address:[address] [place], [place] [id number] Pcp:Stephanie Snell MD Subjective: * Chief Complaints: * 1 . Erosive esophagitis,. * Medical History: Objective: * Vitals: Assessment: * Assessment: 1. E ncounter for screening colonoscopy - Z12.11 (Primary) 2 . C olon polyps - K63.5 3 . E rosive esophagitis - K22.10 Plan: * Treatment: * Procedure Codes: 4 5380 COLONOSCOPY AND BIOPSY, 79578 UPPER GI ENDOSCOPY, BIOPSY * * The named appointment provid er may or may not be the originator of this progress note, and it is not deemed complete until electronically signed by the appointment provider. Sign off status: Pending * Provider: Ej Copeland MD Date: 0 05/22/2023 Generated for Cara real/Pily/Tamekasmitting on: 0 11/08/2024 05:14 PM EDT
--- NOTE | 2024-11-08 16:32 | ED.AMS ---
HPI - Altered Mental Status General Chief Complaint: Recheck/Abnormal Lab/Rx Stated Complaint: Hypoglycemia Time Seen by Provider: 11/08/24 16:23 History of Present Illness HPI narrative: Patient is a 64-year-old male presents today with having altered mental status was noted to have a sugar in the 30s. Patient was given a glucagon. Symptoms seems to have improved. Started on D10 drip by paramedics. On arrival in the ED the mental status back to baseline. Patient's baseline is on long-acting insulin at night 48 units. No other insulin. Patient woke up late this morning. Did not eat breakfast did not eat lunch it is approximately 04:00 when I saw him. Patient's sugar was noted to be low by EMS. Related Data Home Medications ?Medication ?Instructions ?Recorded ?Confirmed atorvastatin 20 mg tablet 20 mg PO BEDTIME 08/04/20 05/18/23 lisinopril 5 mg tablet 5 mg PO DAILY 08/04/20 05/22/23 metformin 850 mg tablet 850 mg PO TID 08/04/20 05/22/23 famotidine 20 mg tablet 20 mg PO BID PRN Heartburn 02/05/23 05/18/23 folic acid 800 mcg tablet 0.8 mg PO DAILY 02/05/23 05/22/23 insulin glargine 100 unit/mL (3 60 unit subcut BEDTIME 02/05/23 05/22/23 mL) subcutaneous pen levetiracetam 500 mg tablet 500 mg PO BID 02/05/23 05/22/23 magnesium oxide 400 mg (241.3 mg 400 mg PO BID 02/05/23 05/18/23 magnesium) tablet omega-3 fatty acids 500 mg capsule 500 mg PO DAILY 02/05/23 05/18/23 Previous Rx's ?Medication ?Instructions ?Recorded insulin lispro protamine-lispro 25 unit (0.25 mL) subcut QAM #0 mL 06/15/21 100 unit/mL (75-25) subcutaneous pen omeprazole 40 mg capsule,delayed 40 mg PO DAILY@0630 #90 caps 02/07/23 release Allergies Allergy/AdvReac Type Severity Reaction Status Date / Time No Known Allergies Allergy Mild NKA Verified 11/08/24 16:48 Review of Systems Review of Systems: No fever no chills no chest pain or shortness breath no systemic complaints. No trauma. PMFSH Past Medical History Attestation statement: The following information was validated with the patient. Medical History High cholesterol Hypertension Type 2 diabetes mellitus Seizure Surgical History History of esophagogastroduodenoscopy (EGD) Hx of fusion of cervical spine Hx of repair of right rotator cuff Social History Social History Household Members: Significant Other and Family Housing: House Do you presently have visiting nurse or other home services: No Alcohol intake: current Alcohol intake frequency: a few times a week Patient Tobacco Use Status: Never used Tobacco Second Hand Smoke Exposure: No Advance Directives: Yes Advance Directives on File: Yes Advance Directives Date on File: 02/05/23 service: No Current occupational status: retired Physical Exam ED Exam Exam: Appearance: Alert. Oriented X3. No acute distress. Eyes: Pupils equal, round and reactive to light. ENT: Pharynx normal. Neck: Normal inspection. Neck supple. No lymph nodes noted. No crepitus CVS: Normal heart rate and rhythm. Pulses normal. Normal S1 and S2 Respiratory: No respiratory distress. Breath sounds normal. No Wheezing. No rales Abdomen: Soft and nontender. No rigidity. No distention. good BS x4 Skin: Skin warm and dry. Normal skin color. Normal skin turgor. Extremities: No lower extremity edema. Neurovascular intact to all extremities. No Lacerations. No Rash Neuro: Oriented X 3. No motor deficit. No sensory deficit. Moving all extermities. No slurred speech Vital Signs: Vital Signs - 24 hr 11/08/24 16:41 11/08/24 16:53 11/08/24 19:20 Temperature 97.8 F 98.3 F Pulse Rate 75 75 78 Respiratory Rate 16 16 18 Blood Pressure 106/70 106/70 141/75 H Pulse Oximetry 99 99 96 Oxygen Delivery Method Room Air Room Air Room Air BMI result Body Mass Index 27.8 Medical Decision Making Medical Decision Making MDM Narrative: Well-appearing no acute distress. Patient's hypoglycemia likely secondary to not eating. Monitor in the emergency department for few hours. Sugar maintain at above 100. Given a meal in the ED. will ask patient to reduce the dose of insulin to 40 units at night. Close follow-up on an outpatient basis. Frequent check of a sugar. Regular meals. In stable condition will discharge home Differential Diagnosis Differential Diagnoses: The differential diagnosis associated with the presentation includes Hypoglycemia, altered mental status Admission/Observation Consideration of admission/observation: Escalation of care including admission/observation considered Lab Data MDM Lab Attestation statement: I reviewed the patient's lab results. 11/08/24 17:27 11/08/24 17:27 Labs: Lab Results 11/08/24 11/08/24 Range/Units 16:48 17:27 WBC 8.0 (4.8-10.8) X10*3/uL RBC 4.51 L (4.60-5.80) X10*6/uL Hgb 13.7 L (14.0-18.0) g/dl Hct 39.3 L (42.0-52.0) % MCV 87.1 (80.0-98.0) fL MCH 30.4 (27.0-33.0) pg MCHC 34.9 (31.0-36.0) g/dl RDW 12.6 (11.0-16.0) % Plt Count 174 (160-400) X10*3/uL MPV 10.3 (9.4-12.4) fL Immature Gran % (Auto) 0.4 (0.0-0.4) % Neut % (Auto) 85.7 H (45-73) % Lymph % (Auto) 8.3 L (20-40) % Bates % (Auto) 5.0 (2-11) % Eos % (Auto) 0.4 (0-4) % Baso % (Auto) 0.2 (0-2) % Lymph # (Auto) 0.7 L (1.2-4.9) X10*3/uL Bates # (Auto) 0.4 (0.1-1.2) X10*3/uL Eos # (Auto) 0.0 (0.0-0.4) X10*3/uL Baso # (Auto) 0.0 (0.0-0.2) X10*3/uL Abs Immat Gran (auto) 0.03 (0.00-0.03) X10*3/uL Absolute Neuts (auto) 6.9 (2.0-8.3) x10*3/uL Absolute Nucleated RBC 0.000 (0.0-0.012) X10*3/uL Nucleated RBC % (auto) 0.0 (0.0-0.2) /100WBC Sodium 142 (135-145) mmol/L Potassium 4.0 (3.3-5.1) mmol/L Chloride 107 (96-108) mmol/L Carbon Dioxide 22 (22-29) mmol/L Anion Gap 17 (12-20) BUN 9 (9-16) mg/dL Creatinine 0.89 (0.5-1.4) mg/dL Estim Creat Clear Calc 90.3 Estimated GFR > 60 POC Glucose 144 H (60-115) mg/dL Random Glucose 145 H (60-115) mg/dL Calcium 8.4 (8.4-10.2) mg/dL External Record Review External record reviewed: Inpatient record Chronic Conditions Patient?s care impacted by: Diabetes Social Determinants Patient?s care significantly limited by Social Determinants of Health including: Problems related to primary support group Discharge Plan Discharge Clinical Impression: Hypoglycemia Patient Disposition: Home, Self-Care Instructions: Hypoglycemia in a Person with Diabetes (ED) Additional Instructions: Please he had regular meals. Please reduce your insulin from 48 units at night to 40 units per night for the next 2 nights. Prescriptions: No Action insulin lispro protamin-lispro 100 unit/mL (75-25) insulin pen 25 unit subcut QAM Qty: 0 0RF levetiracetam 500 mg tablet 500 mg PO BID famotidine 20 mg tablet 20 mg PO BID PRN (Reason: Heartburn) magnesium oxide 400 mg (241.3 mg magnesium) tablet 400 mg PO BID folic acid 800 mcg tablet 0.8 mg PO DAILY omega-3 fatty acids 500 mg Capsule 500 mg PO DAILY insulin glargine 100 unit/mL (3 mL) insulin pen 60 unit subcut BEDTIME omeprazole 40 mg Capsule,Delayed Release(Dr/Ec) 40 mg PO DAILY@0630 Qty: 90 0RF lisinopril 5 mg tablet 5 mg PO DAILY metformin 850 mg tablet 850 mg PO TID atorvastatin 20 mg tablet 20 mg PO BEDTIME Referrals: Stephanie Snell MD [Primary Care Provider, Medical] - 11/10/24 Print Language: Kyrgyz
[2024-11-08 16:41] VITALS: BP 106/70; BP 152/70; PULSE 74; PULSE 75; RESP 16; O2SAT 97; O2SAT 99; BMI 27.8
[2024-11-08 16:52] LABS: Glucose, Whole Blood 144 mg/dL (60-115)
[2024-11-08 16:53] VITALS: BP 106/70; PULSE 75; RESP 16; TEMP 36.6; O2SAT 99
--- OUTSIDE RECORDS SUMMARY | 2024-11-08 17:14 | XMS_ITS | Patient Health Record ---
Author Organization [facility] Address [address] [place] [address] Care Team Providers Care Swedish Masseuse Name Role Phone Alis MAY, [facility] Primary Care Provider Tamir Prieto Jr [phone] Allergies No Known Allergies Reason For Referral No Information Medications Medication SIG (Take, Route, Frequency, Duration) Notes [...] Calcium 20 MG Oral for 90 Active Social History Tobacco Use: Social History Observation Description Date Details (start date - stop date) Never Smoker NA - NA Tobacco Use/Smoking Question Answer Notes Patient is [...] drinks (3 points) Points 5 Interpretation Positive Problems Problem Type SNOMED Code ICD Code Onset Dates Problem Status W/U Status Risk Notes Problem [id number] Colon cancer screening (Z12.11) Active confirmed Problem Duodenitis (91156802) Duodenitis (K29.80) Active confirmed Problem 94220284 Erosive esophagitis (K22.10) Active confirmed Problem Gastritis (1884924) Gastritis (K29.70) Active confirmed Problem Duodenal ulcer without hemorrhage, without perforation AND without obstruction (58359550) Duodenal bulb ulcer (K26.9) Active confirmed Plan Of Treatment Future Test Test Name Order Date UPPER GI ENDOSCOPY 03/28/2023 COLONOSCOPY 03/28/2023 Insurance Providers Payer Name Payer Address Payer Phone Subscriber Number Group Number Insured Name Patient Relationship to Insured Coverage Start Date Coverage End Date [facility] [address] [place] [phone] [id number] JENNYFER POTTER Self - patient is the insured Medical (General) History Medical History History ICD Code Diabetes mellitus type 2 Hyperlipidemia EGD 02/10 erosive esophagitis Seizure disorder Surgical History Surgery Date(Month/Year) cervical fusion c6-c7 rotator cuff repair
--- OUTSIDE RECORDS SUMMARY | 2024-11-08 17:14 | XMS_ITS ---
Author Name [facility] Organization Unknown Care Team Organization Name Specialty Phone Email Start Date End Da te [facility] Snell Primary [facility] 12/27/2021 10/08/2023
--- OUTSIDE RECORDS SUMMARY | 2024-11-08 17:14 | XMS_ITS | Clinical Summary ---
Author Organization [facility] [address] [place] [address] [place] [id number] Phone Care Team Providers Care Graphic Coordinator Name Role Phone Stephanie Snell MD Primary Care Provider [phone] Allergies No known active allergies Medications FREESTYLE LANCETS MISC Use tid to test blood sugar 08/13/19 25 Active blood sugar diagnostic (FreeStyle Lite Strips) test strip USE AND DISCARD 1 TEST STRIP TO CHECK BLOOD SUGAR 3 TIMES DAILY 08/13/19 25 Active blood-glucose meter kit Use to test blood sugar 3 times daily 08/13/19 25 Active OMEGA-3 FATTY ACIDS-FISH OIL ORAL Take 1 capsule by mouth 1 (one) time each day. Patient Buy OTC Active pen needle, diabetic (BD Ultra-Fine Short Pen Needle) 31 gauge x 5/16 needle Insulin Pen Needle (B-D ULTRAFINE III SHORT PEN) 31G X 8 MM Misc Use with insulin pens up to 4 times day 300 each 3 01/15/20 24 Active pantoprazole (PROTONIX) 40 mg EC tabletIndicatio ns:Erosive esophagitis Take 1 tablet (40 mg total) by mouth 2 (two) times a day. Do not crush, chew, or split. 180 each 3 07/17/19 25 026 Active lisinopriL (PRINIVIL,ZESTR IL) 5 mg tablet TAKE 1 TABLET DAILY 90 tablet 1 07/25/19 25 Active folic acid (FOLVITE) 800 mcg tablet Take 1 tablet (800 mcg total) by mouth 1 (one) time each day. 90 tablet 1 08/13/19 25 Active magnesium oxide (MAG-OX) 400 mg (241.3 elemental magnesium) tablet Take 1 tablet (400 mg total) by mouth 1 (one) time each day. 90 tablet 08/13/19 25 Active metFORMIN (GLUCOPHAGE) 850 mg tablet TAKE 1 TABLET 3 TIMES A DAY 270 tablet 1 09/17/19 25 Active atorvastatin (LIPITOR) 20 mg tablet TAKE 1 TABLET DAILY 90 tablet 10/03/19 25 Active insulin glargine (Lantus Solostar U-100 Insulin) 100 unit/mL (3 mL) injection pen INJECT 46-50 UNITS SUBCUTANEOUSLY ONCE AT BEDTIME 60 mL 1 10/07/19 25 Active Active Problems Problem Noted Date Diagnosed Date Type 2 diabetes mellitus wit h hypoglycemia without coma, with long-term current use of insulin ([facility] V24, [facility] V28) 12/13/2023 Assessment & Plan (02/14/2024 7:39 AM EST): As above. Patient will continue to follow with the endocrine service. Type 2 diabetes mellitus wit h microalbuminuria, with long-term current use of insulin ([facility] V24, [facility] V28) 12/13/2023 Overview (12/13/2023): Uncontrolled type 2 diabetes mellitus with microalbuminuria, with long-term current use of insulin Erosive esophagitis 02/28/2023 Overview (12/13/2023): Found on endoscopy report completed in [facility] on Assessment & Plan (07/16/2024 12:28 PM EDT): Last EGD 05/2023 at [facility] did not note any worrisome findings and previous findings of esophagitis had healed. Biopsies were negative for Rodriguez's. Orders: pantoprazole (PROTONIX) 40 mg EC tablet; Take 1 tablet (40 mg total) by mouth 2 (two) times a day. Do not crush, chew, or split. Assessment & Plan (04/16/2024 12:35 PM EST): Orders: pantoprazole (PROTONIX) 40 mg EC tablet; Take 1 tablet (40 mg total) by mouth 2 (two) times a day. Do not crush, chew, or split. Gastritis 02/28/2023 Overview (12/13/2023): Found on endoscopy report completed in [facility] on Microalbuminuria 09/07/2017 Obesity (BMI 30.0-34.9) 09/07/2017 Type 2 diabetes mellitus wit h peripheral vascular disease ([facility] V24, [facility] V28) 09/07/2017 Primary osteoarthritis of right shoulder 018 Pure hypercholesterolemia 03/28/2005 Encounters Date Type Department Care Team Description 08/12/2024 11:00 AM EDT Office Visit Adult Medicine [address] [phone] Cristal Martinez, CHILD WELFARE WORKER Type 2 diabetes mellitus with hypoglycemia without coma, with long-term current use of insulin ([facility] V24, [facility] V28) (Primary Dx); Pure hypercholesterolemia; Encounter for screening for malignant neoplasm of prostate; Need for hepatitis C screening test from Last 3 Months Immunizations Name Administration Dates Next Due H1N1 Inj Preservative Free 02/16/2009 Influenza Quadravalent, MDCK , 0.5ml, preservative free (Flucelvax) 6mo and older 02/27/2022,02/24/2019,02/01/2018 Influenza trivalent, 0.5mL, preservative free (Fluarix; FluLaval; Fluzone) ages 6mo and older (Afluria) 3 years and older 11/12/2023,12/16/2015,10/29/2014,02/10,12/09/2012,10/26/2011,02/08/2011 ,11/15/2009,10/27/2008,12/26/2007,08/2006,01/17/2006 Pfizer SARS-CoV-2 COVID-19, mRNA, LNP-S, preservative free 06/02/2020,05/13/2020 Pneumococcal conjugate 20 va lent (Prevnar 20, PCV 20) 2mo and older 05/12/2024 Pneumococcal polysaccharide 23 valent (Pneumovax 23) 2yo and older 12/17/2000 Td Tetanus diptheria (Tdvax) 7yo and older 09/27/2000 Tdap Tetanus diptheria acell ular pertussis (Boostrix; Adacel) 7yo and older 02/27/2022,10/26/2011 Surgical History Surgery Date Site/Laterality Comments ESOPHAGOGASTRODUODENOSCOPY 02/23/2011 PROCEDURE: [place] ESOPHAGOGASTRODUODENOSCOPY TRANSORAL DIAGNOSTIC; COMMENT: normal on PPI rx. Medical History Medical History Date Comments Atypical chest pain 10/25/2007 DX:Atypical chest pain; COMMENT: Stress mibi (-) discussed with cardiology Type II or unspecified type diabetes mellitus without mention of complication, not stated as uncontrolled DX:Type II or unspecified ty pe diabetes mellitus without mention of complication, not stated as uncontrolled; COMMENT: DKA 2007, diet issues Disturbances of amino-acid t ransport ([facility] V24) DX:Disturbances of amino-aci d transport ([facility]) Hematemesis 02/23/2011 DX:Hematemesis Family History Medical History Relation Name Comments Other: head and neck cancer Brother alcohol abuse Colon cancer Father diagnosed at ag e 65 Diabetes Paternal Grandmother Relation Name Status Comments Brother Father Paternal Grandmother Social History Tobacco Use Types Packs/Day Years Used Date Smoking Tobacco: Never Smokeless Tobacco: Never Alcohol Use Standard Drinks/Week Comments Yes 0 (1 standard drink = 0.6 oz pur e alcohol) Sex and Gender Information Value Date Recorded Sex Assigned at Not on file Legal Sex Male 12:06 AM EST Gender Identity Male 01/15/2024 1:52 PM EST Sexual Orientation Not on file Obstetrics History Last Filed Vital Signs Vital Sign Reading Time Taken Comments Blood Pressure 132/74 08/12/2024 11:04 AM EDT Pulse 76 08/12/2024 11:04 AM EDT Temperature 36.4 C (97.5 F) 08/12/2024 11:04 AM EDT Respiratory Rate 14 08/12/2024 11:04 AM EDT Oxygen Saturation 98% 08/12/2024 11:04 AM EDT Inhaled Oxygen Concentration - - Weight 81.6 kg (180 lb) 08/12/2024 11:04 AM EDT Height 172.7 cm (5' 8 ) 08/12/2024 11:04 AM EDT Body Mass Index 27.37 08/12/2024 11:04 AM EDT Plan of Treatment Upcoming Encounters Date Type Department Care Team (Late st Contact Info) Description 11/12/2024 1:00 PM EDT Office Visit Adult Medicine [facility] [address], [place] [phone] Cristal Martinez NP [address], [place] Health Maintenance Due Date Last Done Comments Diabetes: Annual Foot Exam 02/18/1972 Zoster Vaccines (1 of 2) 02/18/2012 Social Influencers of Health Screening 01/28/2022 RSV Immunization Adult Patients (1 - Risk 60-74 years 1-dose series) 2022 COVID-19 Vaccine ( - season) 2024 02/07/2021, 06/02/2020, 05/13/2020 Influenza Vaccine (#1) 2024 , 02/27/2022, 03/02/2021, Additional history exists Diabetes: Annual Urine Albumin-Creatinine Ratio (uACR) 11/11/2024 11/12/2023 Diabetes: Blood Sugar Control Test (HGBA1C) 05/06/2025 11/06/2024, 08/06/2024, 02/07/2024, Additional history exists Diabetes: Annual Retina Eye Exam 07/29/2025 07/29/2024, 07/19/2023 Diabetes: Annual GFR (Glomerular Filtration Rate) 11/06/2025 11/06/2024, 08/06/2024, 02/12/2024, Additional history exists Cholesterol Screening (Lipid Panel) 06/04/2028 06/05/2023 DTaP,Tdap,and Td Vaccines (4 - Td or Tdap) 02/28/2032 02/27/2022, 10/26/2011, 09/27/2000 Colorectal Cancer Screening: Colonoscopy 05/21/2033 05/22/2023 Pneumococcal Vaccine: 50+ Years Completed 05/12/2024, 12/17/2000 Depression Screening Completed 08/12/2024 Hepatitis C Screening Completed 11/06/2024 HIB Vaccines Aged Out No longer eligi ble based on patient's age to complete this topic HIV Screening Discontinued HPV Vaccines Aged Out No longer eligi ble based on patient's age to complete this topic Hepatitis A Vaccines Aged Out No long er eligible based on patient's age to complete this topic Hepatitis B Vaccines Aged Out No long er eligible based on patient's age to complete this topic IPV Vaccines Aged Out No longer eligi ble based on patient's age to complete this topic MMR Vaccines Aged Out No longer eligi ble based on patient's age to complete this topic Meningococcal ACWY Vaccine Aged Out N o longer eligible based on patient's age to complete this topic Meningococcal B Vaccine Aged Out No l onger eligible based on patient's age to complete this topic RSV Immunization Patients Under 20 months Aged Out No longer eligible based on patient's age to complete this topic Varicella Vaccines Aged Out No longer eligible based on patient's age to complete this topic Procedures Procedure Name Priority Date/Time Associated Diagnosis Comments HEMOGLOBIN A1C Routine 11/06/2024 9:58 AM EDT Type 2 diabetes mellitus with hypoglycemia without coma, with long-term current use of insulin ([facility] V24, [facility] V28) Pure hypercholesterolemia Encounter for screening for malignant neoplasm of prostate Need for hepatitis C screening test BASIC METABOLIC PANEL Routine 11/06/2024 9:58 AM EDT Type 2 diabetes mellitus with hypoglycemia without coma, with long-term current use of insulin ([facility] V24, [facility] V28) Pure hypercholesterolemia Encounter for screening for malignant neoplasm of prostate Need for hepatitis C screening test PROSTATE SPECIFIC ANTIGEN SCREEN Routine 11/06/2024 9:58 AM EDT Encounter for screening for malignant neoplasm of prostate HEPATITIS C ANTIBODY Routine 11/06/2024 9:58 AM EDT Need for hepatitis C screening test URINE ALBUMIN CREATININE RATIO Routine 11/12/2023 DIABETES EYE EXAM Routine 07/19/2023 LIPID PANEL Routine 06/05/2023 COLONOSCOPY Routine 05/22/2023 from Last 3 Months or Most Recently Relevant to Health Maintenance Results * Prostate specific antigen screen (11/06/2024 9:58 AM EDT) [facility] PSA 0.42 0.00 - 4.00 ng/mL LAB CHEMISTRY METHOD 11/06/2024 2:00 PM EDT [facility] Blood Venous blood specimen / Unknown Venipuncture / Unknown 11/06/2024 9:58 AM EDT 11/06/2024 9:58 AM EDT Narrative [facility] - 11/06/2024 2:00 PM EDT The Siemens [employer] Chemiluminescent Immunoassay is used. Results obtained with different assay methods or kits cannot be used interchangeably. Results cannot be interpreted as absolute evidence of the presence or absence of malignant disease. Cristal Martinez NP LAB BLOOD ORDERABLES Final R esult [facility] [address] [place] [address], [place] [phone] * Hepatitis C antibody (11/06/2024 9:58 AM EDT) [facility] Hepatitis C Antibody Negative Negative LAB CHEMISTRY METHOD 11/06/2024 2:39 PM EDT [facility] Blood Venous blood specimen / Unknown Venipuncture / Unknown 11/06/2024 9:58 AM EDT 11/06/2024 9:58 AM EDT Cristal Martinez CHILD WELFARE WORKER LAB BLOOD ORDERABLES Final R esult [facility] [address] [place] [address], [place] [phone] * Hemoglobin A1c (11/06/2024 9:58 AM EDT) [facility] Hemoglobin A1C 6.4 <6.5 % LAB CHEMISTRY METHOD 11/06/2024 9:59 PM EDT [facility] Mean Bld Glu Estim. 137 mg/dL LAB CHEMISTRY METHOD 11/06/2024 9:59 PM [facility] Blood Venous blood specimen / Unknown Venipuncture / Unknown 11/06/2024 9:58 AM EDT 11/06/2024 9:58 AM EDT Cristal Martinez CHILD WELFARE WORKER LAB BLOOD ORDERABLES Final R esult [facility] [address] [place] [address], * Basic metabolic panel (11/06/2024 9:58 AM EDT) [facility] Sodium 139 133 - 145 mmol/L LAB CHEMISTRY METHOD 11/06/2024 12:55 PM [facility] Potassium 4.4 3.5 - 5.5 mmol/L LAB CHEMISTRY METHOD 11/06/2024 12:55 PM [facility] Chloride 105 96 - 110 mmol/L LAB CHEMISTRY METHOD 11/06/2024 12:55 PM [facility] CO2 24 21 - 32 mmol/L LAB CHEMISTRY METHOD 11/06/2024 12:55 PM [facility] Anion Gap 10 3 - 11 LAB CHEMISTRY METHOD 11/06/2024 12:55 PM [facility] Glucose 79 70 - 100 mg/dL LAB CHEMISTRY METHOD 11/06/2024 12:55 PM [facility] BUN 14 5 - 25 mg/dL LAB CHEMISTRY METHOD 11/06/2024 12:55 PM [facility] Creatinine 1.10 0.70 - 1.30 mg/dL LAB CHEMISTRY METHOD 11/06/2024 12:55 PM EDT [facility] eGFR 76 >=60 mL/min/1. 73m2 LAB CHEMISTRY METHOD 11/06/2024 12:55 PM EDT [facility] Comment:Calculation based on the Chronic Kidney Disease Epidemiology Collaboration (CKD-EPI) equation refit without adjustment for race. BUN/Creatinine Ratio 12.7 LAB CHEMISTRY METHOD 11/06/2024 12:55 PM EDT [facility] Calcium 8.5 8.5 - 10.5 mg/dL LAB CHEMISTRY METHOD 11/06/2024 12:55 PM EDT [facility] Blood Venous blood specimen / Unknown Venipuncture / Unknown 11/06/2024 9:58 AM EDT 11/06/2024 9:58 AM EDT Cristal Martinez NP LAB BLOOD ORDERABLES Final R esult [facility] [address] [place] [address], * Urine Albumin Creatinine Ratio (11/12/2023) [facility] Urine Albumin Creatinine Ratio Abstracted Historical Provider HEALTH MAINTENANCE Final Result * Diabetes Eye Exam (07/19/2023) [facility] Diabetes: Annual Retina Eye Exam Abstracted Historical Provider HEALTH MAINTENANCE Final Result * (ABNORMAL) Lipid panel (06/05/2023) [facility] LDL/HDL Ratio 3 0 - 4 Triglycerides 156(A) 0 - 150 mg/dL Cholesterol 122 0 - 200 mg/dL HDL 39(A) >=40 mg/dL LDL Cholesterol 52 0 - 100 mg/dL Blood Venous blood specimen / Unknown Historical Provider LAB BLOOD ORDERABLES Julieta l Result * Colonoscopy (05/22/2023) [facility] Colonoscopy Abstracted, no interpretation Anatomical Region Laterality Modality Other us Historical Provider HEALTH MAINTENANCE Final Result from Last 3 Months or Most Recently Relevant to Health Maintenance Insurance [facility] Care Teams Graphic Coordinator Relationship Specialty Start Date End Date Stephanie Snell MD [address] [place] [address] PCP - General 04/20/1991
[2024-11-08 17:31] LABS: MANUAL DIFF FLAG NO
[2024-11-08 17:40] LABS: Hematocrit 39.3 % (42.0-52.0); Hemoglobin 13.7 g/dl (14.0-18.0); Imm Gran Abs Auto 0.03 X10*3/uL (0.00-0.03); Imm Gran Pct Auto 0.4 % (0.0-0.4); Lymphocytes Absolute Auto 0.7 X10*3/uL (1.2-4.9); Mean Corpuscular HGB Conc 34.9 g/dl (31.0-36.0); Mean Corpuscular Hemoglobin 30.4 pg (27.0-33.0); Mean Corpuscular Volume 87.1 fL (80.0-98.0); NRBC Abs Auto 0.000 X10*3/uL (0.0-0.012); NRBC Pct Auto 0.0 /100WBC (0.0-0.2); Platelet Count 174 X10*3/uL (160-400); Red Blood Count 4.51 X10*6/uL (4.60-5.80); White Blood Count 8.0 X10*3/uL (4.8-10.8)
[2024-11-08 17:48] LABS: Anion Gap 17 (12-20); Blood Urea Nitrogen 9 mg/dL (9-16); Calcium 8.4 mg/dL (8.4-10.2); Carbon Dioxide 22 mmol/L (22-29); Chloride 107 mmol/L (96-108); Creatinine Clr Calc Pharmacy 90.3; Estimated Glomerular Filt Rate > 60; Potassium 4.0 mmol/L (3.3-5.1); Sodium 142 mmol/L (135-145)
[2024-11-08 19:20] VITALS: BP 141/75; PULSE 78; RESP 18; TEMP 36.8; O2SAT 96
[2024-11-08 20:21] LABS: Glucose, Whole Blood 234 mg/dL (60-115)
[2024-11-08 20:42] VITALS: BP 148/80; PULSE 84; RESP 18; TEMP 36.7; O2SAT 96
== END 2024-11-08 20:45 | disposition home or self-care (01) ==
PROVIDERS: Emergency Provider Emergency Medicine Emergency Medical Services; PCP Internal Medicine
DX: E11.649 Type 2 diabetes mellitus with hypoglycemia without coma (principal); R41.82 Altered mental status, unspecified; I10 Essential (primary) hypertension; Z79.4 Long term (current) use of insulin; Z79.84 Long term (current) use of oral hypoglycemic drugs
CPT/HCPCS: 36415; 80048; 82947; 85025; 99283; 99284